=== PATIENT | female | born 1995 | race Caucasian/White ===

== ENCOUNTER → 2017-04-27 12:42 | Outpatient (CLI) | payer MEDICAID, SELFPAY ==
[2017-04-27 14:18] LABS: Valproic Acid (Depakene) Level 104 ug/mL (50-100)
== END ==
PROVIDERS: Visit Provider Nurse Practitioner Acute Care
DX: R56.9 Unspecified convulsions (principal)
CPT/HCPCS: 36415; 80164

== ENCOUNTER 2017-05-09 23:41 | Emergency (ER) | payer MEDICAID, SELFPAY ==
[2017-05-09 23:42] VITALS: BP 159/83; PULSE 108; RESP 18; TEMP 36.8; O2SAT 97; BMI 42.0
--- NOTE | 2017-05-09 23:55 | RAD_ITS ---
STUDY: X-RAY - RIGHT FOOT CLINICAL: Female, 21 years old. Patient stepped on a toothpick, which the doctor pulled out. Puncture wound in the medial tarsal/first metatarsal region. TECHNIQUE: view(s) of the foot. COMPARISON: None. FINDINGS: There is minimal posterior calcaneal enthesophyte formation at the insertion site of the Achilles' tendon. Otherwise normal talus, calcaneus, and tarsal bones. Normal visualized subtalar, talonavicular, calcaneocuboid, tarsal and tarsometatarsal articulations. Normal metatarsi. Normal metatarsophalangeal joint of the great toe. Normal tibial and fibular sesamoid bones. Normal interphalangeal joint of the great toe. Normal phalanges of the great toe. Normal second through fifth metatarsophalangeal joints. Normal interphalangeal joints and phalanges of the lesser toes. The soft tissue structures are unremarkable. RAD/Foot min 3 Views IMPRESSION: No demonstrated fracture, dislocation, or destructive osseous lesion. No demonstrated radiodense foreign body. Electronically Signed: Chema Clark MD at 1:07 EDT , Service support ,
[2017-05-10] MEDS: Diphth,Pertuss(Acell),Tet Vac 0.5 ML Vial IM (00:11)
[2017-05-10] MEDS: Acetaminophen 500 MG Tablet 1000 MG PO (00:34)
--- NOTE | 2017-05-10 00:50 | ED.DCSUM_ITS ---
- ER Visit Summary Date of Service: 05/10/17 Chief Complaint: Foreign body right foot History of Present Illness: The patient is a 21 F presents by EMS toothpick the right foot at friend's house. Wearing socks. Tetanus unknown. No anticoagulation medicines. No paresthesias. Physical Examination: General: Alert and oriented ?3, no acute distress HEENT: Normocephalic, atraumatic. Moist mucosa membranes Neck: supple, nontender. Cardiovascular: Regular rate and rhythm, no murmurs Respiratory: Normal breath sounds, symmetric, no distress Abdomen: Soft, nontender, nondistended Extremities: Right lower extremity: Foot, wooden toothpick sticking out the mid plantar aspect of her foot. No active bleeding. Neuro: no focal neurological deficits. Test Results: Right foot x-ray: No radiopaque foreign body Emergency Department Course and Treatment: Wooden toothpick removed, there was no phrase. X-ray with no radiopaque foreign bodies. Tylenol for pain control. Infection wound care discussed. Discuss signs and symptoms for infection. Tetanus updated. Treatment Plan: [] Disposition: Discharge Impression: 1. Foreign body right foot - removed This note was generated with [employer] dictation software. It may contain incorrect words, spelling, and punctuation that were not noted in review of the chart prior to signing ED Disposition - Plan for ED Patient: Disposition: Home or Assisted Living Chief Complaint: Foreign Body Diagnosis: Puncture wound of right foot with foreign body Instructions: ED Foreign Body Soft Tissue Referrals: Care Physician,No Primary [Primary Care Provider] - 5-7 Days
[2017-05-10 00:59] VITALS: BP 142/68; PULSE 80; RESP 16; O2SAT 98
== END 2017-05-10 01:00 | disposition home or self-care (01) ==
PROVIDERS: Emergency Provider Emergency Medicine
DX: S91.341A Puncture wound with foreign body, right foot, initial encounter (principal); R56.9 Unspecified convulsions; Z23 Encounter for immunization; Z79.899 Other long term (current) drug therapy; X58.XXXA Exposure to other specified factors, initial encounter; Y93.01 Activity, walking, marching and hiking; Y92.009 Unspecified place in unspecified non-institutional (private) residence as the place of occurrence of the external cause; Y99.8 Other external cause status
CPT/HCPCS: 73630; 90471; 90715; 99283

== ENCOUNTER 2017-07-08 23:03 | Emergency (ER) | payer MEDICAID, SELFPAY ==
[2017-07-08 23:03] VITALS: BP 116/69; PULSE 71; RESP 16; TEMP 36.3; O2SAT 100; BMI 43.7
--- NOTE | 2017-07-08 23:30 | ED.VISSUMM ---
- ER Visit Summary Date of Service: 07/08/17 Chief Complaint: [] Rash. History of Present Illness: The patient is a 21 F [] complaining of rash to the bilateral upper extremities lower extremities, abdomen, back. She reports she rubbed oil on her skin and she is allergic to coconut. Denies shortness of breath or chest pain. No other complaints at this time. Physical Examination: [] Afebrile, vital signs stable. Skin examination consistent with dermatitis. Test Results: [] None. Emergency Department Course and Treatment: [] Patient instructed to discontinue the coconut oil/lotion. She was given prednisone orally in the emergency department and a prescription for prednisone for the next 5 days. Treatment Plan: [] Take prednisone daily as an outpatient. Follow-up with PCP. Disposition: [] Discharge, stable. Impression: [] Allergic reaction This note was generated with [employer] dictation software. It may contain incorrect words, spelling, and punctuation that were not noted in review of the chart prior to signing ED Disposition - Plan for ED Patient: Chief Complaint: Sore Throat Referrals: Care Physician,No Primary [Primary Care Provider] -
--- NOTE | 2017-07-08 23:32 | ED.DEP ---
ED Disposition - Plan for ED Patient: Disposition: Home or Assisted Living Chief Complaint: Sore Throat Instructions: Taking an Oral Corticosteroid, ED Dermatitis Contact Ch Prescriptions: Prednisone [Deltasone] 40 mg PO DAILY #5 tab Referrals: Care Physician,No Primary [Primary Care Provider] -
[2017-07-08] MEDS: predniSONE 20 MG Tablet 60 MG PO (23:38)
== END 2017-07-08 23:43 | disposition home or self-care (01) ==
PROVIDERS: Emergency Provider Emergency Medicine
DX: L23.6 Allergic contact dermatitis due to food in contact with the skin (principal); G40.909 Epilepsy, unspecified, not intractable, without status epilepticus; Z79.899 Other long term (current) drug therapy
CPT/HCPCS: 99283

== ENCOUNTER → 2017-09-18 10:25 | Outpatient (CLI) | payer MEDICAID, SELFPAY ==
[2017-09-22 13:17] LABS: KEPPRA (LEVETIRACETAM) 19.6 ug/mL (10.0-40.0)
== END ==
PROVIDERS: Visit Provider Nurse Practitioner Acute Care
DX: R56.9 Unspecified convulsions (principal)
CPT/HCPCS: 36415; 80177

== ENCOUNTER 2017-10-26 18:28 | Emergency (ER) | payer MEDICAID, SELFPAY ==
[2017-10-26 18:29] VITALS: BP 144/63; PULSE 120; RESP 18; TEMP 37.1; O2SAT 98; BMI 45.1
--- NOTE | 2017-10-26 19:49 | ED.DCSUM_ITS ---
- ER Visit Summary Date of Service: 10/26/17 Chief Complaint: Seizure History of Present Illness: The patient is a [address] of epilepsy. On both Keppra and Lamictal. States she has been taken her meds. Today had a seizure lasted several minutes and [employer]. Denies other injuries. Followed up and saw her neurologist 2 weeks ago. Otherwise she denies complaints. Denies any significant injury. Physical Examination: Well-appearing young female. Vital signs are stable and afebrile. H EENT exam pupils round reactive light. No facial trauma. No significant hematomas or lacerations to her scalp or tenderness. Neck nontender. Full range of motion. Lungs good auscultation bilaterally. Heart regular rhythm no murmur. Abdomen soft nontender. Moving all 4 extremities. Neurovascular intact. Neurologically she is awake and alert with no focal motor or sensory deficits. NIH score is 0. GCS of 15. Test Results: None Emergency Department Course and Treatment: A Lamictal level will be sent but that will be followed up as an outpatient. Treatment Plan: Discharge to home. Follow-up with her neurologist. Return if worse. She is already not allowed to drive. Disposition: Discharge Impression: Acute seizure with a history of seizure disorder. This note was generated with [employer] dictation software. It may contain incorrect words, spelling, and punctuation that were not noted in review of the chart prior to signing ED Disposition - Plan for ED Patient: Chief Complaint: Seizure Referrals: Care Physician,No Primary [Primary Care Provider] -
--- NOTE | 2017-10-26 19:49 | ED.DEP ---
ED Disposition - Plan for ED Patient: Disposition: Home or Assisted Living Chief Complaint: Seizure Instructions: ED Seizure Recurrent Additional Instructions: Continue your current medications as prescribed. Follow-up with your neurologist for further evaluation and she can check your level of your seizure medication.
[2017-10-26 20:14] VITALS: BP 145/97; PULSE 100; RESP 14
[2017-10-31 11:37] LABS: Lamotrigine (Lamictal) Level 1.3 ug/mL (2.0-20.0)
== END 2017-10-26 20:14 | disposition home or self-care (01) ==
PROVIDERS: Emergency Provider Emergency Medicine
DX: G40.909 Epilepsy, unspecified, not intractable, without status epilepticus (principal); Z79.899 Other long term (current) drug therapy
CPT/HCPCS: 82542; 99282; J7030

== ENCOUNTER 2017-10-28 09:39 | Emergency (ER) | payer MEDICAID, SELFPAY ==
[2017-10-28 09:40] VITALS: BP 137/83; PULSE 106; RESP 18; TEMP 37.1; O2SAT 100; BMI 43.6
--- NOTE | 2017-10-28 10:55 | ED.VISSUMM ---
- ER Visit Summary Date of Service: 10/28/17 Chief Complaint: [] Left sternocleidomastoid type neck pain History of Present Illness: The patient is a 22 F [] does complain of left-sided neck pain that began last night or this morning. She indicates that she has history of seizure disorder and Fridays had a seizure and she fell and per those with her may have injured her head she was seen in the emergency department her workup was entirely unremarkable she is on a number of seizure medications including Keppra and she is managed by a seizure specialist no adjustments were made to her seizure meds that I am Sunday she thinks she had another seizure, she came in because of the persistent pain to the left SCM region. She has no headache she has been no change in vision no numbness no weakness no paresthesias no loss of functional abilities when I asked her where she hurts she takes her hand and she draws it across the distribution of the left SCM muscle she denies any midline neck pain denies a headache no numbness weakness or paresthesias Physical Examination: [] In no distress her vital signs are within normal range her head exam shows no obvious abnormality in the midline neck is nontender she has some discomfort directly over the left SCM but full range of motion of the neck flexion extension rotation her carotids have good upstroke with no bruits her anterior neck larynx are all unremarkable and again the neck is very supple her speech is normal her cranial nerves are grossly intact as are her vision her lungs are clear heart tones are normal abdomen soft nontender she is able to stand and walk without difficulty there is no motor cerebellar sensory or cranial nerve abnormality Test Results: [] Emergency Department Course and Treatment: [] I had a long conversation with the patient and her mother I explained we could obtain head CT neck CTs and other workup to the emergency department but declined those studies stating that they does not know what she can take for her pain given her seizure disorder, they also report that she has had a menstrual cycle for many months she 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 she is not in the [employer] workup was unremarkable she has no renal or ulcer disease and no allergies to nonsteroidals At this time they are comfortable with discharge for use of nonsteroidals ice to the area she has an appointment to see her neurologist and other providers next week and she is comfortable to see them for the seizures and any other conditions that are troubling her, with regards to the amenorrhea I have asked her to follow-up forgotten, there does not appear to be any indication to adjust her seizure medications today as her physicians are aware of all the above and want to see her and make those adjustments when they have seen her in the office Treatment Plan: [] Disposition: [] Home stable Impression: [] Left sided neck pain history of seizure disorder This note was generated with [employer] dictation software. It may contain incorrect words, spelling, and punctuation that were not noted in review of the chart prior to signing ED Disposition - Plan for ED Patient: Chief Complaint: Vision Prob Referrals: Care Physician,No Primary [Primary Care Provider] -
--- NOTE | 2017-10-28 11:00 | ED.DCSUM_ITS ---
- ER Visit Summary Date of Service: 10/28/17 Chief Complaint: [] Left sternocleidomastoid type neck pain History of Present Illness: The patient is a 22 F [] does complain of left- sided neck pain that began last night or this morning. She indicates that she has history of seizure disorder and Fridays had a seizure and she fell and per those with her may have injured her head she was seen in the emergency department her workup was entirely unremarkable she is on a number of seizure medications including Keppra and she is managed by a seizure specialist no adjustments were made to her seizure meds that I am Sunday she thinks she had another seizure, she came in because of the persistent pain to the left SCM region. She has no headache she has been no change in vision no numbness no weakness no paresthesias no loss of functional abilities when I asked her where she hurts she takes her hand and she draws it across the distribution of the left SCM muscle she denies any midline neck pain denies a headache no numbness weakness or paresthesias Physical Examination: [] In no distress her vital signs are within normal range her head exam shows no obvious abnormality in the midline neck is nontender she has some discomfort directly over the left SCM but full range of motion of the neck flexion extension rotation her carotids have good upstroke with no bruits her anterior neck larynx are all unremarkable and again the neck is very supple her speech is normal her cranial nerves are grossly intact as are her vision her lungs are clear heart tones are normal abdomen soft nontender she is able to stand and walk without difficulty there is no motor cerebellar sensory or cranial nerve abnormality Test Results: [] Emergency Department Course and Treatment: [] I had a long conversation with the patient and her mother I explained we could obtain head CT neck CTs and other workup to the emergency department but declined those studies stating that they does not know what she can take for her pain given her seizure disorder, they also report that she has had a menstrual cycle for many months she 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 been 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 she has no renal or ulcer disease and no allergies to nonsteroidals At this time they are comfortable with discharge for use of nonsteroidals ice to the area she has an appointment to see her neurologist and other providers next week and she is comfortable to see them for the seizures and any other conditions that are troubling her, with regards to the amenorrhea I have asked her to follow-up forgotten, there does not appear to be any indication to adjust her seizure medications today as her physicians are aware of all the above and want to see her and make those adjustments when they have seen her in the office Treatment Plan: [] Disposition: [] Home stable Impression: [] Left sided neck pain history of seizure disorder This note was generated with [employer] dictation software. It may contain incorrect words, spelling, and punctuation that were not noted in review of the chart prior to signing ED Disposition - Plan for ED Patient: Chief Complaint: Vision Prob Referrals: Care Physician,No Primary [Primary Care Provider] -
--- NOTE | 2017-10-28 11:00 | ED.DEP ---
ED Disposition - Plan for ED Patient: Chief Complaint: Vision Prob Instructions: ED Sprain Strain Neck Prescriptions: Naproxen [Naprosyn] 500 mg PO BID PRN #20 tab Referrals: Care Physician,No Primary [Primary Care Provider] - Additional Instructions: Keep all of your appointments with all of your your providers including those that manage her seizures return for change in symptoms
[2017-10-28 11:27] VITALS: BP 122/74; PULSE 68; RESP 177; O2SAT 98
== END 2017-10-28 11:30 | disposition home or self-care (01) ==
PROVIDERS: Emergency Provider Emergency Medicine
DX: M54.2 Cervicalgia (principal); G40.909 Epilepsy, unspecified, not intractable, without status epilepticus; Z79.899 Other long term (current) drug therapy
CPT/HCPCS: 99282

== ENCOUNTER 2017-12-23 12:23 | Emergency (ER) | payer MEDICAID, SELFPAY ==
[2017-12-23 12:24] VITALS: BP 159/69; PULSE 73; RESP 16; TEMP 37; O2SAT 95; BMI 42.5
[2017-12-23] MEDS: LORazepam 2 MG/ML Syringe 1 MG IV (13:23)
[2017-12-23 13:31] LABS: Absolute Lymphocyte Count 4.57 X10^3/ul (0.83-4.51); Absolute Neutrophil Count 9.3 X10^3/uL (2.0-7.7); Basophil# 0.02 X10^3/uL; Basophil% 0.1 % (0-1); Eosinophil# 0.06 X10^3/uL; Eosinophils% 0.4 % (0-5); Hematocrit 40.6 % (37-47); Hemoglobin 13.3 g/dl (12.0-15.0); Lymphocyte # 4.57 X10^3/ul (4.0); Lymphocyte % 30.4 % (19-41); Mean Corp Hgb Conc 32.8 g/gl (32-36); Mean Corpuscular Volume 88.5 fL (81-99); Mean Platelet Vol. 10.7 fl (6.2-12.0); Monocyte# 1.08 X10^3/uL; Monocyte% 7.2 % (0-10); Neutrophil # 9.27 X10^3/uL (2.7-7.7); Neutrophil % 61.7 % (47-70); Platelet Count 311 K/mm3 (150-450); RBC Distribution Width CV 12.5 % (11.6-14.6); RBC Distribution Width SD 39.9 fl (35.1-43.9); Red Blood Count 4.59 M/mm3 (4.2-5.4)
[2017-12-23 13:33] LABS: POSITIVE COUNT NO; POSITIVE DIFFERENTIAL NO; POSITIVE MORPHOLOGY NO
[2017-12-23 13:42] LABS: ALB/GLOB Ratio 0.9 RATIO (0.9-2.4); AST(SGOT) 13 U/L (15-37); Alanine Aminotransfer ALT/SGPT 26 U/L (13-56); Albumin, Serum 3.6 g/dL (3.2-5.0); Alkaline Phosphatase 110 U/L (45-117); Anion Gap 8 (5-15); BUN 13 mg/dL (7-18); BUN/Creat Ratio 16.5 RATIO (10-20); Calcium,Total 8.8 mg/dL (8.5-10.1); Chloride 107 mmol/L (98-107); Creatinine, Serum 0.79 mg/dL (0.55-1.02); EST Glomerular Filtration Rate 99 mL/min (>60); Est Glom Filt Rate - Afr Amer 119 mL/min (>60); Estimated Creatinine Clearance 98.09 ml/min; Glucose 82 mg/dL (74-106); Potassium 3.7 mmol/L (3.5-5.1); Protein, Total 7.6 g/dL (6.4-8.2); Sodium Level 142 mmol/L (136-145)
[2017-12-23 13:48] LABS: Pregnancy, Serum, hCG Quali. NEGATIVE Negative (0-9 Nonpreg)
[2017-12-23 15:19] LABS: Mucous, Urine 0 SEEN /hpf (<or=2+); Red Blood Cells-Urine 0 SEEN /hpf (0-5)
--- NOTE | 2017-12-23 15:23 | ED.DCSUM_ITS ---
- ER Visit Summary Date of Service: 12/23/17 Chief Complaint: [Seizure] History of Present Illness: The patient is a 22 F [presents the emergency department with complaint of seizures that started yesterday. Patient had a witnessed grand mal like seizure yesterday it lasted about a minute and a half per patient's mother. Patient then had a second seizure where she would just stare that lasted several seconds. Today patient had several more shaking spells that lasted about a minute however patient was awake through these and mom described just intermittent jerking. Patient denies any falls or head injuries. Patient has had a little bit of a viral pharyngitis that was diagnosed recently in 2 days ago patient was started on prednisone. Patient's not had any fevers. She denies any headache or neck pain. Patient has not had any falls or head injuries. Patient has been compliant with her medications.] Patient states that she has been under increased stress of late as her boyfriend recently quit his job. Physical Examination: [HEENT-PERRLA, EOMI. Cranial nerves II through XII grossly intact. TMs clear. Mucous membranes moist. No adenopathy. No bite wounds noted to the tongue or buccal mucosa. Cardiovascular-regular rate and rhythm without murmur or ectopy Lungs-clear to auscultation, chest wall stable without crepitus or subcu emphysema Abdomen-normoactive bowel sounds, soft, nontender, no rebound or rigidity, no peritoneal signs. Neuro [id number] and heel garcia testing within normal limits, negative Romberg, negative pronator drift, fundi benign. Extremities-intact ?4, normal range of motion, normal pulses, atraumatic] Test Results: [CBC with differential showed a slightly elevated white blood cell count of 15,000. Chemistries unremarkable. HCG was negative.] Urinalysis was normal and urine tox screen was negative. Emergency Department Course and Treatment: [Patient was given a milligram of Ativan on arrival to the emergency department.] Patient had no further seizure activity in the department. I reviewed her last admission one year ago at which time she had a MRI of her brain that was normal and also a EEG that did not show any seizure activity. Patient case was discussed with neurologist on-call asked that patient follow-up with their office. Initially it was noted that patient was on 1000 mg twice daily of Keppra and I was asked to inc rease her to 1250 twice daily however after discussing this with the patient she tells me she is currently on 1500 mg twice daily. At this point we will not make any further adjustments in her medications. Patient and her mother believe that maybe the prednisone triggered these seizures and I do not see a good reason for her to maintain and continue on the prednisone as patient no longer has throat discomfort and she has had no fevers therefore she was asked to discontinue these. Treatment Plan: [Follow-up with neurology] Disposition: [Discharged home in stable condition] Impression: [Recurrent seizures] This note was generated with [employer] dictation software. It may contain incorrect words, spelling, and punctuation that were not noted in review of the chart prior to signing ED Disposition - Plan for ED Patient: Chief Complaint: Seizure Referrals: Care Physician,No Primary [Primary Care Provider] -
[2017-12-23 15:24] LABS: Color, Urine Yellow (Yellow); Glucose, Dipstick Normal (Normal); Ketone-Dipstick 5 mg/dl (Negative); Leukocyte Esterase-Dipstick 25 /ul (Negative); Nitrite-Dipstick Negative (Negative); Occult Blood-Urine Negative /ul (Negative); Protein-Dipstick 30 mg/dl (Negative); Specific Gravity, Urine 1.025 (1.002-1.030); Urine Bilirubin Dipstick Negative (Negative); Urine Clarity Sl. Cloudy (Clear); Urine Urobilinogen Normal (Normal)
[2017-12-23 15:52] LABS: Squamous Epithelial Cells - UA 10-25 SEEN /hpf (5-10); White Blood Cells 0-5 SEEN /hpf (0-5)
[2017-12-23 15:53] LABS: Bacteria 2+ /hpf (None Seen)
[2017-12-23 16:02] LABS: Amphetamine Urine VISTA NEGATIVE (<1000 ng/mL); Barbiturate Urine VISTA NEGATIVE (< 200 ng/mL); Benzodiazepine Urine VISTA NEGATIVE (< 200 ng/mL); Cocaine Urine VISTA NEGATIVE (< 300 ng/mL); Ecstacy Urine VISTA NEGATIVE (< 500 ng/mL); Methadone Urine VISTA NEGATIVE (< 300 ng/mL); PCP Urine VISTA NEGATIVE (< 25 ng/mL); THC Urine VISTA NEGATIVE (< 50 ng/mL); Vista UDS pH Range 5
--- NOTE | 2017-12-23 16:09 | ED.DEP ---
ED Disposition - Plan for ED Patient: Chief Complaint: Seizure Instructions: ED Seizure Recurrent Referrals: Care Physician,No Primary [Primary Care Provider] - Jatin Rodrigez MD [STAFF PHYSICIAN] - 5-7 Days
[2017-12-23 16:22] VITALS: BP 148/63; PULSE 63; RESP 18; O2SAT 95
== END 2017-12-23 16:23 | disposition home or self-care (01) ==
LOC: ED 12:54
PROVIDERS: Emergency Provider Emergency Medicine
DX: G40.909 Epilepsy, unspecified, not intractable, without status epilepticus (principal)
CPT/HCPCS: 80053; 80307; 81001; 84703; 85025; 96374; 99284; J7040; A4216

== ENCOUNTER 2018-10-12 21:49 | Emergency (ER) | payer MEDICAID, SELFPAY ==
[2018-10-12 21:50] VITALS: BP 140/72; PULSE 88; RESP 16; TEMP 36.6; O2SAT 99; BMI 45.3
--- NOTE | 2018-10-12 22:33 | ED.DCSUM_ITS ---
- ER Visit Summary Date of Service: 10/12/18 Chief Complaint: Back pain History of Present Illness: The patient is a 23 F who presents with back pain that began 2 days ago. Patient describes the pain is stabbing. Patient denies any trauma or injury. She states her pain is worse with movement. Patient st ates her pain is also worse with bending. Patient states she has been taking ibuprofen with no relief. She denies any radiation of the pain. Patient denies any bowel or bladder changes. Patient denies any saddle anesthesia. Physical Examination: Vital signs are stable. Patient is afebrile. Patient is in no acute distress. There is tenderness over the upper lumbar spine and paraspinal muscles. There is no bony crepitance or step-off. There is good range of motion. Strength is 5/5 bilaterally upper and lower extremities. There are no sensory deficits noted. Deep tendon reflexes are 2+/4. Emergency Department Course and Treatment: Patient was given an injection of Toradol here. Patient was given a prescription for Lodine because her mother states that naproxen does not work for her. Patient was instructed to use ice to the area. Patient was instructed to follow-up with her primary care physician in 5 to 7 days. Patient and her mother understood and were agreeable with the plan. All questions were answered. Disposition: Discharge home Impression: Lumbar strain This note was generated with [employer] dictation software. It may contain incorrect words, spelling, and punctuation that were not noted in review of the chart prior to signing ED Disposition - Plan for ED Patient: Disposition: Home or Assisted Living Diagnosis: Lumbosacral strain Instructions: Back Sprain/Strain Prescriptions: Etodolac [Lodine] 400 mg PO BID PRN PRN #20 tab PRN Reason: Pain Prescription Printed Referrals: Arley Dominguez MD [Primary Care Provider] - 3-5 Days Additional Instructions: Use ice packs to your low back.
[2018-10-12] MEDS: Ketorolac 60 MG/2 ML Vial IM (23:13)
[2018-10-12 23:20] VITALS: RESP 16
== END 2018-10-12 23:34 | disposition home or self-care (01) ==
PROVIDERS: Emergency Provider Emergency Medicine; Family Provider Family Medicine; PCP Family Medicine
DX: S39.012A Strain of muscle, fascia and tendon of lower back, initial encounter (principal); E66.9 Obesity, unspecified; X58.XXXA Exposure to other specified factors, initial encounter; Y93.89 Activity, other specified; Y92.89 Other specified places as the place of occurrence of the external cause; Y99.8 Other external cause status
CPT/HCPCS: 96372; 99282

== ENCOUNTER 2018-11-10 21:59 | Emergency (ER) | payer MEDICAID, SELFPAY ==
[2018-11-10 21:59] VITALS: BP 152/82; PULSE 107; RESP 16; TEMP 36.6; O2SAT 97; BMI 44.8
[2018-11-10] MEDS: 0.9% Normal Saline 1,000 ML 1000 ML IV (22:47)
[2018-11-10] MEDS: Ondansetron 4 MG/2 ML Vial IV (22:49)
[2018-11-10] MEDS: Ketorolac 30 MG/ML Syringe IV (22:49)
[2018-11-10 22:51] LABS: Absolute Neutrophil Count 6.2 X10^3/uL (2.0-7.7); Basophil# 0.07 X10^3/uL; Basophil% 0.6 % (0-1); Eosinophil# 0.84 X10^3/uL; Eosinophils% 7.2 % (0-5); Hematocrit 40.2 % (37-47); Hemoglobin 13.1 g/dL (12.0-15.0); Lymphocyte % 31.8 % (19-41); Mean Corp Hgb Conc 32.6 g/dL (32-36); Mean Corpuscular Hgb 28.7 pg (27.0-32.0); Mean Corpuscular Volume 88.2 fL (81-99); Mean Platelet Vol. 11.1 fl (6.2-12.0); Monocyte# 0.86 X10^3/uL; Monocyte% 7.4 % (0-10); NRBC Flagged by Analyzer 0 % (0-5); Neutrophil # 6.15 X10^3/uL (2.7-7.7); Neutrophil % 52.7 % (47-70); Platelet Count 288 K/mm3 (150-450); RBC Distribution Width CV 11.9 % (11.6-14.6); RBC Distribution Width SD 38.4 fl (35.1-43.9); Red Blood Count 4.56 M/mm3 (4.2-5.4); White Blood Count 11.7 K/mm3 (4.4-11.0)
[2018-11-10 23:07] LABS: Internal QC Validated? YES +Cl - CLEAR BKGD; Pregnancy, Serum, hCG Quali. NEGATIVE Negative
[2018-11-10 23:11] LABS: AST(SGOT) 17 U/L (15-37); Alanine Aminotransfer ALT/SGPT 24 U/L (13-56); Albumin, Serum 3.4 g/dL (3.2-5.0); Alkaline Phosphatase 98 U/L (45-117); Anion Gap 5 (5-15); BUN 16 mg/dL (7-18); BUN/Creat Ratio 20.5 RATIO (10-20); Bilirubin, Direct 0.15 mg/dL (0.00-0.30); Calcium,Total 8.6 mg/dL (8.5-10.1); Chloride 111 mmol/L (98-107); Creatinine, Serum 0.78 mg/dL (0.55-1.02); EST Glomerular Filtration Rate 99 mL/min (>60); Est Glom Filt Rate - Afr Amer 120 mL/min (>60); Estimated Creatinine Clearance 98.52 ml/min; Glucose 124 mg/dL (74-106); Lipase 166 U/L (73-393); Potassium 3.9 mmol/L (3.5-5.1); Protein, Total 7.4 g/dL (6.4-8.2); Sodium Level 141 mmol/L (136-145)
--- NOTE | 2018-11-10 23:26 | ED.DCSUM_ITS ---
History of Present Illness Chief Complaint: Nausea/Vomiting Detail of Chief Complaint: Nausea, vomiting, diarrhea, epigastric pain Informant: Patient Onset: Days Context: Gradual Onset Timing: Waxes and wanes Current Severity: Mild Maximum Severity: Moderate Narrative: Patient presents with a several day history of nausea, vomiting, and diarrhea. She has epigastric pain. This started after eating chicken Ahmet that her friend made. She reports having a low-grade fever couple days ago. She developed a migraine which improved after taking Excedrin Migraine yesterday. She reports a mild headache currently. - Past Medical History (1) Seizure disorder Status: Acute Past Medical History - Allergies and Home Meds Allergies/Adverse Reactions: Allergies dog dander Allergy (Verified 11/10/18 22:01) Other coconut Adverse Reaction (Verified 11/10/18 22:01) Hives grapefruit Adverse Reaction (Verified 11/10/18 22:01) Hives Primary Care Physician: Arley Dominguez MD [Primary Care Provider] - 3-5 Days if not improving Prior records reviewed: Yes Past Medical History: - - Reviewed Lives: With Family Smoking Status: Never smoker - Family History Sibling Family History: Reports: Seizures Review of Systems General: Reports: Fever - Low-grade fever a few days ago. Denies: Chills Eyes: Denies: Visual changes - bilaterally ENT: Denies: Bilateral ear pain Cardiovascular: Denies: Chest pain, Palpitations Respiratory: Denies: Dyspnea, Cough Gastrointestinal: Reports: Abdominal pain, Nausea, Vomiting, Diarrhea Genitourinary: Denies: Dysuria Musculoskeletal: Denies: Back pain, Extremity Pain Skin: Denies: Rash Neurological: Reports: Headache. Denies: Weakness, Parasthesia, Numbness Endocrine: Denies: Polyuria, Polydipsia Hematologic: Denies: Easy bruising Allergy: Denies: Uticaria Physical Exam Vital Signs/Narrative: Vital Signs Temp Pulse Resp BP Pulse Ox 11/10/18 21:59 98 F 107 H 16 152/82 H 97 Inital Vital Signs reviewed: Yes General: Well nourished, Well developed Head: Normocephalic Eyes: EOMI ENT: Moist mucous membranes Neck: Supple Cardiovascular: Regular rate, Regular rhythm Respiratory: No distress, CTA bilaterally Abdomen: Soft, Tender - Mild epigastric tenderness palpation., Hypoactive bowel sounds. Negative for: Guarding, Rebound tenderness Back: Nontender Extremities: Nontender Skin: Normal color, No rash Neurological: Alert, Oriented x3 Psychological: Normal affect Diagnostic/Tx/Re-eval Laboratory Results 11/10/18 11/10/18 11/10/18 22:45 22:45 22:45 WBC 11.7 H RBC 4.56 Hgb 13.1 Hct 40.2 MCV 88.2 MCH 28.7 MCHC 32.6 RDW Std Deviation 38.4 RDW Coeff of Khanh 11.9 Plt Count 288 MPV 11.1 Immature Gran % (Auto) 0.300 Neut % (Auto) 52.7 Lymph % (Auto) 31.8 [place] % (Auto) 7.4 Eos % (Auto) 7.2 H Baso % (Auto) 0.6 Absolute Neuts (auto) 6.2 Absolute Lymphs (auto) 3.70 Nucleated RBC % 0 Sodium 141 Potassium 3.9 Chloride 111 H Carbon Dioxide 25.0 Anion Gap 5 BUN 16 Creatinine 0.78 Estim Creat Clear Calc 98.52 Est GFR (MDRD) Af Amer 120 Est GFR (MDRD) Non-Af 99 BUN/Creatinine Ratio 20.5 H Glucose 124 H Calcium 8.6 Total Bilirubin 0.30 Direct Bilirubin 0.15 AST 17 ALT 24 Alkaline Phosphatase 98 Total Protein 7.4 Albumin 3.4 Globulin 4.0 Lipase 166 Serum , Qual NEGATIVE - Medical Decision Making Patient was given Toradol, Zofran, and IV fluids. On repeat evaluation she does feel improved. Test results were discussed with her. I advised her that if she does have food poisoning treatment is supportive. She is given a prescription for Zofran and Bentyl at home. ED Disposition - Plan for ED Patient: Disposition: Home or Assisted Living Diagnosis: Gastroenteritis Instructions: FOOD POISONING or GASTROENTERITIS (6y-Adult) Prescriptions: Dicyclomine HCl [Bentyl] 20 mg PO TIDAC #20 cap Prescription Printed Ondansetron [Zofran Odt] 4 mg PO Q8H PRN PRN #10 tab PRN Reason: Nausea Prescription Printed Referrals: Arley Dominguez MD [Primary Care Provider] - 3-5 Days if not improving
[2018-11-10 23:47] VITALS: BP 147/85; PULSE 79; RESP 18; O2SAT 100
== END 2018-11-10 23:48 | disposition home or self-care (01) ==
PROVIDERS: Emergency Provider Emergency Medicine; Family Provider Family Medicine; PCP Family Medicine
DX: K52.9 Noninfective gastroenteritis and colitis, unspecified (principal); G40.909 Epilepsy, unspecified, not intractable, without status epilepticus
CPT/HCPCS: 80048; 80076; 83690; 84703; 85025; 96361; 96374; 96375; 99284; J2405

== ENCOUNTER 2018-11-23 22:37 | Emergency (ER) | payer MEDICAID, SELFPAY ==
[2018-11-23 22:38] VITALS: BP 138/75; PULSE 79; RESP 15; TEMP 36.6; O2SAT 99; BMI 41.8
--- NOTE | 2018-11-23 22:48 | CT_ITS ---
HISTORY: SEIZURES X 3 WITH SHAKING,HIT HEAD,PT WAS SHIELDEDHX:NON EPILEPTIC SEIZURES AND TAKES NO MEDS EXAMINATION: CT Head or Brain W/O IV Contrast TECHNIQUE: Multiple axial images were obtained of the head without intravenous contrast. A radiation dose optimization technique was used for this scan. IV Contrast dosage and agent: None. COMPARISON: CT brain 01/01/2017 FINDINGS: Normal ventricles and normal cloud-white matter differentiation. No intracranial mass, hemorrhage, or acute intracranial abnormality. Posterior fossa structures are unremarkable. No suspicious extra-axial fluid collection. Pansinusitis with mucosal thickening and partial opacification of the paranasal sinuses throughout. This was also seen previously. CT/Brain/Head without Contrast IMPRESSION: 1. Normal CT brain without contrast. 2. Chronic pansinusitis. Individualized dose optimization techniques were used for this CT. at 0033 Reported and signed by: Yeyo Dewitt MD Electronically Signed: Yeyo Dewitt, at 0:32 EDT Tel , Service support ,
--- NOTE | 2018-11-23 22:49 | ED.DCSUM_ITS ---
History of Present Illness Chief Complaint: Seizure Informant: Patient Onset: Today Context: Sudden Onset Timing: Intermittent Current Severity: Mild Maximum Severity: Moderate Narrative: The patient presents to the emergency department with with seizure. The patient was diagnosed with nonepileptic psychogenic seizure disorder. She initially was diagnosed with seizures and was on Keppra. She is had negative MRIs and EEGs. They all seem to be stress-induced. Her upper was stopped. She states that she gets very anxious before she has to go to work. States today, she had 2 episodes where she just felt like she was going to have a seizure and then one where she had tonic-clonic motion. She struck her head. She did not bite her tongue. There is no urinary incontinence. There is no postictal spell. She states he is at her normal nonepileptic spells. Prior similar symptoms: No Recent Illness/Hospitalization: No Past Medical History - Allergies and Home Meds Allergies/Adverse Reactions: Allergies dog dander Allergy (Verified 11/23/18 22:41) Other coconut Adverse Reaction (Verified 11/23/18 22:41) Hives grapefruit Adverse Reaction (Verified 11/23/18 22:41) Hives Primary Care Physician: Arley Dominguez MD [Primary Care Provider] - Prior records reviewed: Yes Past Medical History: - - NEPS Surgical History: no surgical history Smoking Status: Never smoker - Family History Sibling Family History: Reports: Seizures Review of Systems General: Denies: Chills, Fever, Sweats Eyes: Denies: Visual changes - bilaterally, Diplopia ENT: Denies: Rhinorrhea, Sore throat Cardiovascular: Denies: Chest pain, Palpitations Respiratory: Denies: Dyspnea, Cough, Dyspnea on exertion Gastrointestinal: Denies: Abdominal pain, Nausea, Vomiting, Diarrhea, Melena, Hematochezia Genitourinary: Denies: Dysuria, Hematuria, Frequency Musculoskeletal: Denies: Back pain, Extremity Pain Skin: Denies: Rash, Wounds Neurological: Denies: Headache, Weakness, Numbness Physical Exam Vital Signs/Narrative: Vital Signs Temp Pulse Resp BP Pulse Ox 11/23/18 22:38 97.9 F 79 15 138/75 H 99 Inital Vital Signs reviewed: Yes General: Well nourished, Well developed, No Acute Distress Head: Normocephalic, Atraumatic Eyes: Perrl, EOMI ENT: Moist mucous membranes, No rhinorrhea Neck: Supple, Nontender Cardiovascular: Regular rate, Regular rhythm, No murmurs Respiratory: No distress, CTA bilaterally, Chest nontender Abdomen: Soft, Nontender, Nondistended, Normal bowel sounds Back: Nontender, Normal Inspection Extremities: Nontender, No edema Skin: Normal color, No rash Neurological: Alert, Oriented x3, Cranial nerves II-XII grossly intact, Normal Strength, Normal Sensation Psychological: Normal affect, Normal Mood Diagnostic/Tx/Re-eval Abnormal Lab Results 11/23/18 11/23/18 23:20 23:20 WBC 10.9 RBC 4.50 Hgb 12.7 Hct 39.5 MCV 87.8 MCH 28.2 MCHC 32.2 RDW Std Deviation 39.1 RDW Coeff of Khanh 12.2 Plt Count 316 MPV 11.7 Immature Gran % (Auto) 0.300 Neut % (Auto) 45.9 L Lymph % (Auto) 39.0 Calvert % (Auto) 7.8 Eos % (Auto) 6.4 H Baso % (Auto) 0.6 Absolute Neuts (auto) 5.0 Absolute Lymphs (auto) 4.25 Nucleated RBC % 0 Sodium 142 Potassium 3.5 Chloride 109 H Carbon Dioxide 27.0 Anion Gap 6 BUN 15 Creatinine 0.82 Estim Creat Clear Calc 93.71 Est GFR (MDRD) Af Amer 113 Est GFR (MDRD) Non-Af 94 BUN/Creatinine Ratio 18.3 Glucose 92 Calcium 9.3 Total Bilirubin 0.40 AST 22 ALT 24 Alkaline Phosphatase 99 Total Protein 7.8 Albumin 3.7 Globulin 4.1 Albumin/Globulin Ratio 0.9 Clinical Impression(s) from Imaging Studies Brain CT 11/23/18 22:48 IMPRESSION: 1. Normal CT brain without contrast. 2. Chronic pansinusitis. Individualized dose optimization techniques were used for this CT. at 0033 Reported and signed by: Yeyo Dewitt MD Electronically Signed: Yeyo Dewitt, at 0:32 EDT Tel , Service support , - Medical Decision Making The patient presents after nonepileptic psychogenic seizure. She did strike her head. IV was established. The patient was given fluids and Ativan. On reevaluation, she is feeling markedly improved. With her head injury, I did obtain a CT of her head. This was unremarkable. The patient does have a significant amount of stressors at home, but she is not suicidal or homicidal. These are all stress related spells. I did deputy general counsel her on the importance of following up with her primary care as there may be medication that she would benefit from. I think the patient is safe for outpatient therapy. She is comfortable with this plan of care. She will be discharged home. Impression 1. Head injury without loss of consciousness 2. Nonepileptic psychogenic seizure ED Disposition - Plan for ED Patient: Instructions: SEIZURE, Recurrent [Adult] Referrals: Arley Dominguez MD [Primary Care Provider] -
[2018-11-23] MEDS: 0.9% Normal Saline 1,000 ML 1000 ML IV (23:16)
[2018-11-23] MEDS: LORazepam 2 MG/ML Syringe 1 MG IV (23:16)
[2018-11-23] MEDS: Ondansetron 4 MG/2 ML Vial IV (23:16)
[2018-11-23 23:38] LABS: Absolute Lymphocyte Count 4.25 X10^3/uL (0.83-4.51); Basophil# 0.07 X10^3/uL; Basophil% 0.6 % (0-1); Eosinophils% 6.4 % (0-5); Hematocrit 39.5 % (37-47); Hemoglobin 12.7 g/dL (12.0-15.0); Lymphocyte # 4.25 X10^3/ul (4.0); Mean Corp Hgb Conc 32.2 g/dL (32-36); Mean Corpuscular Hgb 28.2 pg (27.0-32.0); Mean Corpuscular Volume 87.8 fL (81-99); Mean Platelet Vol. 11.7 fl (6.2-12.0); Monocyte# 0.85 X10^3/uL; Monocyte% 7.8 % (0-10); NRBC Flagged by Analyzer 0 % (0-5); Neutrophil # 5.01 X10^3/uL (2.7-7.7); Neutrophil % 45.9 % (47-70); Platelet Count 316 K/mm3 (150-450); RBC Distribution Width CV 12.2 % (11.6-14.6); RBC Distribution Width SD 39.1 fl (35.1-43.9); White Blood Count 10.9 K/mm3 (4.4-11.0)
[2018-11-23 23:51] LABS: ALB/GLOB Ratio 0.9 RATIO (0.9-2.4); AST(SGOT) 22 U/L (15-37); Alanine Aminotransfer ALT/SGPT 24 U/L (13-56); Albumin, Serum 3.7 g/dL (3.2-5.0); Alkaline Phosphatase 99 U/L (45-117); Anion Gap 6 (5-15); BUN 15 mg/dL (7-18); BUN/Creat Ratio 18.3 RATIO (10-20); Calcium,Total 9.3 mg/dL (8.5-10.1); Chloride 109 mmol/L (98-107); Creatinine, Serum 0.82 mg/dL (0.55-1.02); EST Glomerular Filtration Rate 94 mL/min (>60); Est Glom Filt Rate - Afr Amer 113 mL/min (>60); Estimated Creatinine Clearance 93.71 ml/min; Globulin 4.1 g/dL (2.2-4.2); Glucose 92 mg/dL (74-106); Potassium 3.5 mmol/L (3.5-5.1); Protein, Total 7.8 g/dL (6.4-8.2); Sodium Level 142 mmol/L (136-145)
[2018-11-24 00:27] LABS: Mucous, Urine 0 SEEN /hpf (<or=2+)
[2018-11-24 00:28] LABS: Color, Urine Yellow (Yellow); Glucose, Dipstick Normal (Normal); Ketone-Dipstick Negative (Negative); Leukocyte Esterase-Dipstick 100 /ul (Negative); Nitrite-Dipstick Negative (Negative); Occult Blood-Urine 10 /ul (Negative); Protein-Dipstick Negative (Negative); Specific Gravity, Urine 1.015 (1.002-1.030); Urine Bilirubin Dipstick Negative (Negative); Urine Clarity Clear (Clear); Urine Urobilinogen 1 mg/dl (Normal); Urine pH 6.5 (5.0 - 8.0)
[2018-11-24 00:34] LABS: Bacteria RARE /hpf (None Seen); Squamous Epithelial Cells - UA 0-5 SEEN /hpf (5-10); White Blood Cells 0-5 SEEN /hpf (0-5)
[2018-11-24 00:35] LABS: Internal QC Validated? YES +Cl - CLEAR BKGD; Pregnancy, Urine Negative Negative; Red Blood Cells-Urine 0-5 SEEN /hpf (0-5)
[2018-11-24 00:36] VITALS: BP 115/92; PULSE 71; RESP 15; O2SAT 99
== END 2018-11-24 00:45 | disposition home or self-care (01) ==
LOC: ED 22:58
PROVIDERS: Emergency Provider Emergency Medicine; Family Provider Family Medicine; PCP Family Medicine
DX: R56.9 Unspecified convulsions (principal); S09.90XA Unspecified injury of head, initial encounter; W22.8XXA Striking against or struck by other objects, initial encounter; Y93.89 Activity, other specified; Y92.009 Unspecified place in unspecified non-institutional (private) residence as the place of occurrence of the external cause; Y99.8 Other external cause status
CPT/HCPCS: 70450; 80053; 81001; 81025; 85025; 96361; 96374; 96375; 99285; J7030; A4216; J2405

== ENCOUNTER 2018-11-27 18:05 | Emergency (ER) | payer OTHER, MEDICAID, SELFPAY ==
[2018-11-27 18:06] VITALS: BP 147/77; PULSE 85; PULSE 88; RESP 17; TEMP 36.9; O2SAT 95; O2SAT 96; BMI 44.4
--- NOTE | 2018-11-27 18:38 | ED.VIS.GEN ---
History of Present Illness Chief Complaint: Seizure Detail of Chief Complaint: Left shoulder pain Informant: Patient Onset: Today Current Severity: Mild Maximum Severity: Mild Narrative: Patient has a history of nonepileptic psychogenic seizures. She was seen in the ER a few days ago after having 4 seizures. Work-up including head CT were unremarkable. Patient states she was at work again today when she felt a pain in the back of her head followed by a seizure. Stress including stress at work seems to be a trigger for her seizures. At this time her only complaint is left shoulder pain. She is right-hand dominant. Past Medical History - Allergies and Home Meds Allergies/Adverse Reactions: Allergies dog dander Allergy (Verified 11/27/18 18:05) Other coconut Adverse Reaction (Verified 11/27/18 18:05) Hives grapefruit Adverse Reaction (Verified 11/27/18 18:05) Hives Primary Care Physician: Arley Dominguez MD [Primary Care Provider] - Prior records reviewed: Yes Past Medical History: - - Reviewed Surgical History: no surgical history Smoking Status: Never smoker - Family History Sibling Family History: Reports: Seizures Review of Systems General: Denies: Chills, Fever Eyes: Denies: Visual changes - bilaterally ENT: Denies: Bilateral ear pain Cardiovascular: Denies: Chest pain Respiratory: Denies: Dyspnea, Cough Gastrointestinal: Denies: Abdominal pain, Nausea, Vomiting Genitourinary: Denies: Dysuria Musculoskeletal: Reports: Extremity Pain. Denies: Neck pain Neurological: Denies: Headache, Weakness, Parasthesia Endocrine: Denies: Polyuria, Polydipsia Hematologic: Denies: Easy bruising Allergy: Denies: Uticaria Physical Exam Vital Signs/Narrative: Vital Signs Temp Pulse Resp BP Pulse Ox 11/27/18 18:06 98.4 F 85 17 147/77 H 96 Inital Vital Signs reviewed: Yes General: Well nourished, Well developed Head: Normocephalic ENT: Moist mucous membranes Neck: Supple Cardiovascular: Regular rate, Regular rhythm Respiratory: No distress, CTA bilaterally Abdomen: Soft, Nontender Extremities: Tenderness - Left shoulder tenderness. No sign of dislocation. Strong distal pulses. Skin: Normal color Neurological: Alert, Oriented x3, Normal Sensation Psychological: Normal affect Diagnostic/Tx/Re-eval Impressions Shoulder X-Ray 11/27/18 18:55 IMPRESSION: No acute osseous abnormality. Electronically Signed: Colby Adam, at 19:13 EDT Tel , Service support , 11/27/18 18:55 Shoulder min 2 Views [RAD] Stat - Medical Decision Making Patient was given naproxen here for pain along with a dose of Vistaril to help with her anxiety. She states that Ativan and other benzos give her hallucinations. On repeat evaluation she is resting comfortably. She does feel that her anxiety is improved and she will be given a prescription for a short course of Vistaril. ED Disposition - Plan for ED Patient: Disposition: Home or Assisted Living Diagnosis: Pseudoseizure, Shoulder sprain Instructions: SEIZURE, Recurrent [Adult], Shoulder Sprain Prescriptions: Naproxen [Naprosyn] 500 mg PO BID PRN #20 tablet hydrOXYzine pamoate capsule [Vistaril] 1 - 2 cap PO TID PRN PRN #30 capsule PRN Reason: Anxiety Referrals: Arley Dominguez MD [Primary Care Provider] - 1 Week
--- NOTE | 2018-11-27 18:55 | RAD_ITS ---
STUDY: X-RAY - LEFT SHOULDER REASON FOR EXAM: Female, 23 years old. Fell after a seizure. TECHNIQUE: 3 view(s) of the shoulder. COMPARISON: None. FINDINGS: No visible fracture. No osseous destruction. Alignment anatomic. Mild degenerative changes. Soft tissues unremarkable. RAD/Shoulder min 2 Views IMPRESSION: No acute osseous abnormality. Electronically Signed: Colby Adam, at 19:13 EDT Tel , Service support ,
[2018-11-27] MEDS: hydrOXYzine PAM 25 MG Capsule PO (19:03)
[2018-11-27] MEDS: Naproxen 500 MG Tablet PO (19:03)
[2018-11-27 20:22] VITALS: BP 131/78; PULSE 78; RESP 16; O2SAT 98
--- NOTE | 2018-11-27 21:27 | ED.RN ---
mother called in requesting work note stating ok to return to work. spoke with Dr. Mcdermott patient can return to work with no restrictions
== END 2018-11-27 20:28 | disposition home or self-care (01) ==
PROVIDERS: Emergency Provider Emergency Medicine; Family Provider Family Medicine; PCP Family Medicine
DX: F44.5 Conversion disorder with seizures or convulsions (principal); S43.402A Unspecified sprain of left shoulder joint, initial encounter; W18.30XA Fall on same level, unspecified, initial encounter; Y93.89 Activity, other specified; Y92.89 Other specified places as the place of occurrence of the external cause; Y99.0 Civilian activity done for income or pay
CPT/HCPCS: 73030; 99284

== ENCOUNTER 2018-12-17 22:20 | Emergency (ER) | payer MEDICAID, SELFPAY ==
[2018-12-17 22:21] VITALS: BP 160/71; PULSE 94; RESP 18; TEMP 36.6; O2SAT 98; BMI 41.0
[2018-12-17 22:33] VITALS: O2SAT 98
--- NOTE | 2018-12-17 22:40 | ED.VIS.GEN ---
History of Present Illness Chief Complaint: Cough Informant: Patient Onset: Weeks - 1 week ago Context: Sudden Onset Timing: Continuous Quality: Cough with nasal symptoms Location: Upper respiratory Current Severity: Mild Maximum Severity: Moderate Worsened by: Viral infection Relieved by: Nothing Associated Symptoms: Nothing Narrative: Patient is a 23-year-old non-smoker who presents with rhinorrhea, congestion, postnasal drainage and cough. Cough is been productive of green-colored sputum. She is a non-smoker. She denies headache. Denies visual, auditory or ocular symptoms. She denies photophobia, neck pain or neck stiffness. She denies chest pain. She denies GI symptoms. She denies rash. She denies myalgias or arthralgias. Prior similar symptoms: No Recent Illness/Hospitalization: No - Past Medical History (1) Seizure disorder Status: Acute (2) Morbid obesity with BMI of 40.0-44.9, adult Status: Chronic Past Medical History - Allergies and Home Meds Allergies/Adverse Reactions: Allergies dog dander Allergy (Verified 12/17/18 22:25) Other coconut Adverse Reaction (Verified 12/17/18 22:25) Hives grapefruit Adverse Reaction (Verified 12/17/18 22:25) Hives Primary Care Physician: Arley Dominguez MD [Primary Care Provider] - Prior records reviewed: Yes Surgical History: no surgical history Lives: With Family Smoking Status: Never smoker Alcohol: None Drugs: None - Family History Sibling Family History: Reports: Seizures Review of Systems General: Denies: Chills, Fever, Malaise, Sweats Eyes: Denies: Visual changes - bilaterally, Blurred Vision - bilaterally, Diplopia ENT: Denies: Bilateral ear pain, Rhinorrhea, Sore throat Cardiovascular: Denies: Chest pain, Palpitations Respiratory: Reports: Cough, Sputum. Denies: Dyspnea, Dyspnea on exertion Gastrointestinal: Denies: Abdominal pain, Nausea, Vomiting, Diarrhea, Melena, Hematochezia Musculoskeletal: Denies: Myalgias, Arthralgias, Neck pain, Back pain, Swelling, Extremity Pain, -, - Skin: Denies: Rash, Wounds Physical Exam Vital Signs/Narrative: Vital Signs Temp Pulse Resp BP Pulse Ox 12/17/18 22:21 98 F 94 18 160/71 H 98 Inital Vital Signs reviewed: Yes General: Well nourished, Well developed, No Acute Distress Head: Normocephalic, Atraumatic Eyes: Perrl, EOMI. Negative for: Pale conjunctiva, Scleral icterus ENT: Moist mucous membranes, TM's clear. Negative for: No rhinorrhea Neck: Supple, Nontender, No lymphadenopathy, No JVD Cardiovascular: Regular rate, Regular rhythm, No murmurs, Normal S1, Normal S2 Respiratory: No distress, CTA bilaterally, Chest nontender Skin: Normal color, No rash Neurological: Alert, Oriented x3, Cranial nerves II-XII grossly intact, Normal Strength, Normal Sensation Psychological: Normal affect Diagnostic/Tx/Re-eval - Medical Decision Making Patient presents with upper respiratory symptoms. She was informed this is a viral illness. She was informed antibiotics are not indicated. Since vitals are normal and auscultatory findings are unremarkable x-ray was not obtained. ED Disposition - Plan for ED Patient: Disposition: Home or Assisted Living Diagnosis: Acute bronchitis Instructions: BRONCHITIS, No Antibiotic (Adult) Referrals: Arley Dominguez MD [Primary Care Provider] - 10-14 Days if not better
== END 2018-12-17 23:07 | disposition home or self-care (01) ==
LOC: ED 22:52
PROVIDERS: Emergency Provider Emergency Medicine; Family Provider Family Medicine; PCP Family Medicine
DX: J20.9 Acute bronchitis, unspecified (principal); G40.909 Epilepsy, unspecified, not intractable, without status epilepticus; E66.01 Morbid (severe) obesity due to excess calories; Z68.41 Body mass index [BMI] 40.0-44.9, adult
CPT/HCPCS: 99282

== ENCOUNTER 2018-12-24 18:11 | Emergency (ER) | payer MEDICAID, SELFPAY ==
[2018-12-24 18:13] VITALS: BP 162/113; PULSE 100; RESP 16; TEMP 36.5; O2SAT 98; BMI 47.5
--- NOTE | 2018-12-24 18:16 | ED.VIS.GEN ---
History of Present Illness Chief Complaint: Seizure Informant: Patient Onset: Today Context: Sudden Onset Current Severity: Mild Maximum Severity: Mild Narrative: The patient presents to the emergency department after a seizure-like spell. The patient has a history of nonepileptic seizures. She was at home. They were concerned for a gas leak. EMS arrived and was checking for gas. There was none that was able to be found. The patient then had a 2-second shaking spell which is normal with her nonepileptic seizures. She states that she was stressed and this does happen to her. She is not on any antiseizure medication. She is otherwise been in her normal state of health. Prior similar symptoms: Yes Recent Illness/Hospitalization: No Past Medical History - Allergies and Home Meds Allergies/Adverse Reactions: Allergies dog dander Allergy (Verified 12/24/18 18:13) Other lorazepam [From Ativan] Allergy (Verified 12/24/18 19:10) Other venlafaxine [From Effexor] Allergy (Verified 12/24/18 19:10) Other coconut Adverse Reaction (Verified 12/24/18 18:13) Hives grapefruit Adverse Reaction (Verified 12/24/18 18:13) Hives Primary Care Physician: Arley Dominguez MD [Primary Care Provider] - Prior records reviewed: Yes Surgical History: no surgical history Smoking Status: Never smoker - Family History Sibling Family History: Reports: Seizures Review of Systems General: Denies: Chills, Fever, Sweats Eyes: Denies: Visual changes - bilaterally, Diplopia ENT: Denies: Rhinorrhea, Sore throat Cardiovascular: Denies: Chest pain, Palpitations Respiratory: Denies: Dyspnea, Cough, Dyspnea on exertion Gastrointestinal: Denies: Abdominal pain, Nausea, Vomiting, Diarrhea, Melena, Hematochezia Genitourinary: Denies: Dysuria, Hematuria, Frequency Musculoskeletal: Denies: Back pain, Extremity Pain Skin: Denies: Rash, Wounds Neurological: Denies: Headache, Weakness, Numbness Physical Exam Inital Vital Signs reviewed: Yes General: Well nourished, Well developed, No Acute Distress Head: Normocephalic, Atraumatic Eyes: Perrl, EOMI ENT: Moist mucous membranes, No rhinorrhea Neck: Supple, Nontender Cardiovascular: Regular rate, Regular rhythm, No murmurs Respiratory: No distress, CTA bilaterally, Chest nontender Abdomen: Soft, Nontender, Nondistended, Normal bowel sounds Back: Nontender, Normal Inspection Extremities: Nontender, No edema Skin: Normal color, No rash Neurological: Alert, Oriented x3, Cranial nerves II-XII grossly intact, Normal Strength, Normal Sensation Psychological: Normal affect, Normal Mood Diagnostic/Tx/Re-eval Abnormal Lab Results 12/24/18 12/24/18 12/24/18 18:45 18:45 18:45 WBC 10.8 RBC 4.93 Hgb 14.2 Hct 43.6 MCV 88.4 MCH 28.8 MCHC 32.6 RDW Std Deviation 38.3 RDW Coeff of Khanh 11.9 Plt Count 332 MPV 11.3 Immature Gran % (Auto) 0.200 Neut % (Auto) 57.8 Lymph % (Auto) 27.7 Clay % (Auto) 7.0 Eos % (Auto) 6.6 H Baso % (Auto) 0.7 Absolute Neuts (auto) 6.2 Absolute Lymphs (auto) 2.98 Nucleated RBC % 0 VBG Carboxyhemoglobin 1.1 Sodium 139 Potassium 3.5 Chloride 106 Carbon Dioxide 27.0 Anion Gap 6 BUN 13 Creatinine 0.87 Estim Creat Clear Calc 80.90 Est GFR (MDRD) Af Amer 106 Est GFR (MDRD) Non-Af 87 BUN/Creatinine Ratio 15.0 Glucose 101 Calcium 9.2 - Medical Decision Making The patient presents to the emergency department after nonepileptic spell. She is awake and alert. There is no secondary generalization. The patient was observed. She had no further symptoms. Given the questionable gas leak, I did obtain a carboxyhemoglobin level which was unremarkable. At this point, I do feel the patient is safe for discharge. She is comfortable with plan of care. Impression 1. Nonepileptic spell ED Disposition - Plan for ED Patient: Instructions: SEIZURE, Recurrent [Adult] Referrals: Arley Dominguez MD [Primary Care Provider] -
[2018-12-24 18:17] VITALS: BP 189/115; PULSE 111; RESP 16; O2SAT 98
[2018-12-24 19:02] LABS: Carboxyhemoglobin Frac (CO) 1.1 % (0.0-1.5)
[2018-12-24 19:04] LABS: Absolute Lymphocyte Count 2.98 X10^3/uL (0.83-4.51); Absolute Neutrophil Count 6.2 X10^3/uL (2.0-7.7); Basophil# 0.08 X10^3/uL; Basophil% 0.7 % (0-1); Eosinophil# 0.71 X10^3/uL; Eosinophils% 6.6 % (0-5); Hematocrit 43.6 % (37-47); Hemoglobin 14.2 g/dL (12.0-15.0); Lymphocyte # 2.98 X10^3/ul (4.0); Lymphocyte % 27.7 % (19-41); Mean Corp Hgb Conc 32.6 g/dL (32-36); Mean Corpuscular Hgb 28.8 pg (27.0-32.0); Mean Corpuscular Volume 88.4 fL (81-99); Mean Platelet Vol. 11.3 fl (6.2-12.0); Monocyte# 0.75 X10^3/uL; NRBC Flagged by Analyzer 0 % (0-5); Neutrophil # 6.23 X10^3/uL (2.7-7.7); Neutrophil % 57.8 % (47-70); Platelet Count 332 K/mm3 (150-450); RBC Distribution Width CV 11.9 % (11.6-14.6); RBC Distribution Width SD 38.3 fl (35.1-43.9); Red Blood Count 4.93 M/mm3 (4.2-5.4); White Blood Count 10.8 K/mm3 (4.4-11.0)
[2018-12-24 19:10] LABS: Anion Gap 6 (5-15); BUN 13 mg/dL (7-18); Calcium,Total 9.2 mg/dL (8.5-10.1); Chloride 106 mmol/L (98-107); Creatinine, Serum 0.87 mg/dL (0.55-1.02); EST Glomerular Filtration Rate 87 mL/min (>60); Est Glom Filt Rate - Afr Amer 106 mL/min (>60); Glucose 101 mg/dL (74-106); Potassium 3.5 mmol/L (3.5-5.1); Sodium Level 139 mmol/L (136-145)
[2018-12-24 19:46] VITALS: BP 125/73; PULSE 90; RESP 22; O2SAT 99
== END 2018-12-24 19:46 | disposition home or self-care (01) ==
LOC: ED 18:35
PROVIDERS: Emergency Provider Emergency Medicine; Family Provider Family Medicine; PCP Family Medicine
DX: R56.9 Unspecified convulsions (principal)
CPT/HCPCS: 80048; 82375; 85025; 99285; A4216

== ENCOUNTER 2019-02-19 21:54 | Emergency (ER) | payer MEDICAID, SELFPAY ==
[2019-02-19 21:55] VITALS: BP 155/71; PULSE 81; RESP 16; TEMP 36.7; O2SAT 96; BMI 46.9
--- NOTE | 2019-02-19 22:54 | ED.VIS.GEN ---
History of Present Illness Chief Complaint: Seizure Informant: Patient Narrative: She has stated she has a history of nonepileptic seizures for years. She has had work-ups including EEG and MRI which have been negative. She had an episode of 40 second episode tonight where her body was shaking. She did not lose consciousness. Family saw this. She also had 3 other episodes where she shook for a second like she had chills. She stated they are anxiety related. She has been on Effexor in the past which helped but she is no longer taking this due to side effects. No home treatment. Recent negative CT head for similar episodes. She has seen a psychologist in the past but is no longer seeing that physician. Patient stated she has a mild frontal headache - Past Medical History (1) Gastroenteritis Status: Acute (2) Seizure disorder Status: Acute (3) Morbid obesity with BMI of 40.0-44.9, adult Status: Chronic Past Medical History - Allergies and Home Meds Allergies/Adverse Reactions: Allergies dog dander Allergy (Verified 02/19/19 21:55) Other lorazepam [From Ativan] Allergy (Verified 02/19/19 21:55) Other venlafaxine [From Effexor] Allergy (Verified 02/19/19 21:55) Other coconut Adverse Reaction (Verified 02/19/19 21:55) Hives grapefruit Adverse Reaction (Verified 02/19/19 21:55) Hives Primary Care Physician: Arley Dominguez MD [Primary Care Provider] - Prior records reviewed: Yes Past Medical History: - - See problem list Surgical History: no surgical history Lives: With Family Smoking Status: Never smoker Alcohol: None Drugs: None - Family History Sibling Family History: Reports: Seizures Review of Systems General: Denies: Chills, Fever, Sweats Eyes: Denies: Visual changes - bilaterally, Diplopia ENT: Denies: Rhinorrhea, Sore throat Cardiovascular: Denies: Chest pain, Palpitations Respiratory: Denies: Dyspnea, Cough, Dyspnea on exertion Gastrointestinal: Denies: Abdominal pain, Nausea, Vomiting, Diarrhea, Melena, Hematochezia Genitourinary: Denies: Dysuria, Hematuria, Frequency Musculoskeletal: Denies: Back pain, Extremity Pain Skin: Denies: Rash, Wounds Neurological: Reports: Headache. Denies: Weakness, Numbness Physical Exam Vital Signs/Narrative: Vital Signs Temp Pulse Resp BP Pulse Ox 02/19/19 21:55 98.0 F 81 16 155/71 H 96 General: Well nourished, Well developed, No Acute Distress Head: Normocephalic, Atraumatic Eyes: Perrl, EOMI ENT: Moist mucous membranes, No rhinorrhea Neck: Supple, Nontender Cardiovascular: Regular rate, Regular rhythm, No murmurs Respiratory: No distress, CTA bilaterally, Chest nontender Abdomen: Soft, Nontender, Nondistended, Normal bowel sounds Back: Nontender, Normal Inspection Extremities: Nontender, No edema Skin: Normal color, No rash Neurological: Alert, Oriented x3, Cranial nerves II-XII grossly intact, Normal Strength, Normal Sensation Psychological: Normal affect, Normal Mood Diagnostic/Tx/Re-eval - Medical Decision Making Patient had a very brief episode of potential seizure activity. She has a history of nonepileptic seizures related to stress. Given an injection of Toradol and Benadryl. At this time I do not feel she needs repeat lab work or imaging. We will follow-up as an outpatient. She does not drive. ED Disposition - Plan for ED Patient: Disposition: Home or Assisted Living Diagnosis: Psychogenic nonepileptic seizure Instructions: SEIZURE, Recurrent [Adult] Referrals: Arley Dominguez MD [Primary Care Provider] -
[2019-02-19] MEDS: DiphenhydrAMINE 50 MG/ML Syringe IM (23:27)
[2019-02-19] MEDS: Ketorolac 30 MG/ML Syringe IM (23:29)
[2019-02-19 23:44] VITALS: BP 128/54; PULSE 79; RESP 18; O2SAT 97
== END 2019-02-19 23:46 | disposition home or self-care (01) ==
PROVIDERS: Emergency Provider Emergency Medicine; Family Provider Family Medicine; PCP Family Medicine
DX: F44.5 Conversion disorder with seizures or convulsions (principal); F41.9 Anxiety disorder, unspecified; E66.01 Morbid (severe) obesity due to excess calories; Z68.41 Body mass index [BMI] 40.0-44.9, adult; Z87.19 Personal history of other diseases of the digestive system; Z79.899 Other long term (current) drug therapy
CPT/HCPCS: 96372; 99282

== ENCOUNTER 2019-04-06 12:05 | Emergency (ER) | payer MEDICAID, SELFPAY ==
[2019-04-06 12:06] VITALS: BP 142/74; PULSE 94; RESP 18; TEMP 36.8; O2SAT 97; BMI 46.0
--- NOTE | 2019-04-06 12:48 | RAD_ITS ---
STUDY: X-RAY CHEST REASON FOR EXAM: Female, 23 years old. DIZZINESS, COUGH TECHNIQUE: Single AP portable view of the chest. COMPARISON: 06/09/2011 FINDINGS: The lungs are clear and expanded. There is no demonstrated pleural abnormality. Normal size heart. Normal mediastinum and osiel. Normal visualized pulmonary arteries. Normal visualized aortic arch and descending thoracic aorta. Normal visualized thoracic spine. Normal visualized ribs, clavicles, and shoulders. There is no demonstrated abnormality of the visualized soft tissue structures of the upper abdomen. RAD/Chest 1 View (Portable) IMPRESSION: Normal x-ray examination of the chest. Electronically Signed: Hussein Rivera MD at 14:02 EST Tel , Service support ,
--- NOTE | 2019-04-06 13:03 | ED.DCSUM_ITS ---
- ER Visit Summary Date of Service: 04/06/19 Chief Complaint: Dizziness History of Present Illness: The patient is a 23 F presenting with dizziness. Patient states when she stands up she feels dizzy and room spinning. This started today. She denies syncope. She also complains of right ear pain, rhinorrhea, cough. She complains of nausea with no vomiting. She has sick contacts. She denies fever or other complaints. Physical Examination: Vitals are stable. Patient is afebrile. Alert no acute distress. HEENT exam is unremarkable. TMs unremarkable. Pharynx is normal. Neck is supple. No meningismus Lungs are clear and equal bilaterally. Heart is regular rate and rhythm. Abdomen is soft nontender nondistended. Extremities are unremarkable. Skin is warm and dry. No focal neurologic deficit. Remainder of exam is unremarkable. Emergency Department Course and Treatment: Patient was given Zofran, Antivert. Basic metabolic panel unremarkable. hCG negative. Orthostatics negative. Patient is able to tolerate p.o. in the emergency department. She is feeling improved. She is given prescription for Antivert. Advised to follow with primary care physician. Advised return to ED if worsening complaints. Disposition: Discharge home Impression: Peripheral vertigo, URI This note was generated with [employer] dictation software. It may contain incorrect words, spelling, and punctuation that were not noted in review of the chart prior to signing ED Disposition - Plan for ED Patient: Instructions: DIZZINESS, Unk Cause Prescriptions: Meclizine HCl [Antivert] 25 mg PO 4X/DAY PRN PRN #20 tab PRN Reason: Dizziness Prescription Printed Referrals: Arley Dominguez MD [Primary Care Provider] -
[2019-04-06 13:11] LABS: Internal QC Validated? YES +Cl - CLEAR BKGD; Pregnancy, Serum, hCG Quali. NEGATIVE Negative
[2019-04-06 13:13] LABS: Anion Gap 3 (5-15); BUN 14 mg/dL (7-18); BUN/Creat Ratio 14.7 RATIO (10-20); Chloride 112 mmol/L (98-107); Creatinine, Serum 0.96 mg/dL (0.55-1.02); EST Glomerular Filtration Rate 78 mL/min (>60); Est Glom Filt Rate - Afr Amer 94 mL/min (>60); Estimated Creatinine Clearance 76.68 ml/min; Glucose 84 mg/dL (74-106); Potassium 4.4 mmol/L (3.5-5.1); Sodium Level 140 mmol/L (136-145)
[2019-04-06 13:30] VITALS: BP 128/75; BP 139/78; BP 141/85; PULSE 64; PULSE 69; PULSE 71
[2019-04-06] MEDS: Meclizine HCl 25 MG Tablet PO (13:36)
--- NOTE | 2019-04-06 13:37 | ED.RN ---
PT DECLINES STEPHANIE, STATES SHE IS NOT NAUSEOUS NOW, I JUST SOMETHING TO EAT AND DRINK
--- NOTE | 2019-04-06 14:09 | ED.DEP ---
ED Disposition - Plan for ED Patient: Instructions: DIZZINESS, Unk Cause Prescriptions: Meclizine HCl [Antivert] 25 mg PO 4X/DAY PRN PRN #20 tablet PRN Reason: Dizziness Referrals: Arley Dominguez MD [Primary Care Provider] -
== END 2019-04-06 14:47 | disposition home or self-care (01) ==
LOC: ED 12:39
PROVIDERS: Emergency Provider Emergency Medicine; PCP Family Medicine
DX: J06.9 Acute upper respiratory infection, unspecified (principal); H81.399 Other peripheral vertigo, unspecified ear
CPT/HCPCS: 71045; 80048; 84703; 99284; J2405

== ENCOUNTER 2019-04-23 16:03 | Emergency (ER) | payer MEDICAID, SELFPAY ==
[2019-04-23 16:05] VITALS: BP 160/84; PULSE 89; RESP 18; TEMP 36.1; O2SAT 99; BMI 44.2
--- NOTE | 2019-04-23 16:39 | ED.DCSUM_ITS ---
- ER Visit Summary Date of Service: 04/23/19 Chief Complaint: Blood in right ear History of Present Illness: The patient is a [address] Poe. She does not have an ENT. She reports that she had multiple ear infections when she was little. She had tympanostomy tubes and did not inhale. They tried patching this with rice paper. She states that today she noticed blood in her right ear. She reports she has a dull pain is 7 out of 10 at worst and 5-10 currently. Is increased with noise. Is decreased with ibuprofen. She denies any fever or chills. She is had a nonproductive cough. She denies sore throat or shortness of breath. Physical Examination: Vitals: Stable. Afebrile. General: Well-nourished and well-developed. Head: Normocephalic atraumatic. HEENT: She does have a defect in her right TM that appears chronic. There is no erythema or dullness of her TM itself. She has normal landmarks. I suspect the source of the blood is an abrasion just inside her tragus that has dried blood present. There is no active bleeding. There is no evidence of an otitis externa. Neck: Supple, no lymphadenopathy. No JVD. Nontender. Cardiovascular: Regular rate and rhythm. No murmurs. Respiratory: No respiratory distress. Clear to auscultation bilaterally. Abdominal: Soft, nontender, nondistended, normal bowel sounds. No guarding, rebound, or peritoneal signs. Back: Nontender. Extremities: Nontender, no edema. Skin: Normal color, no rash. Neurologic: Alert and oriented ?3. Cranial nerves II through XII are intact. Normal strength and sensation. Psych: Normal affect. Emergency Department Course and Treatment: Patient was reassured. Treatment Plan: Patient will be discharged with instructions to follow-up with Dr. Marquez to see if there is any possibility of repair of her TM. Return to the emergency department for any worsening symptoms. Disposition: To home in improved and stable condition. Impression: 1. Abrasion right external auditory canal. 2. Chronically ruptured right TM. This note was generated with [employer]ation software. It may contain incorrect words, spelling, and punctuation that were not noted in review of the chart prior to signing ED Disposition - Plan for ED Patient: Disposition: Home or Assisted Living Instructions: Abrasion Referrals: Romain Marquez MD [STAFF PHYSICIAN] - 1-2 Weeks
[2019-04-23 16:53] VITALS: BP 108/77; PULSE 62; RESP 15; O2SAT 98
== END 2019-04-23 17:12 | disposition home or self-care (01) ==
LOC: ED 17:00
PROVIDERS: Emergency Provider Emergency Medicine; PCP Family Medicine
DX: S00.411A Abrasion of right ear, initial encounter (principal); H72.91 Unspecified perforation of tympanic membrane, right ear; F41.9 Anxiety disorder, unspecified; F32.9 Major depressive disorder, single episode, unspecified; Z79.899 Other long term (current) drug therapy; X58.XXXA Exposure to other specified factors, initial encounter; Y93.9 Activity, unspecified; Y92.89 Other specified places as the place of occurrence of the external cause; Y99.8 Other external cause status
CPT/HCPCS: 99282

== ENCOUNTER 2019-05-08 22:25 | Emergency (ER) | payer MEDICAID, SELFPAY ==
[2019-05-08 22:25] VITALS: BP 157/94; PULSE 90; RESP 17; TEMP 36.4; O2SAT 100; BMI 46.5
--- NOTE | 2019-05-08 22:46 | ED.VIS.HA ---
History of Present Illness Chief Complaint: Headache Informant: Patient, Family Onset: Weeks Context: Gradual, Exertional Timing: Continuous Quality: Similar Prior Headaches - migraines Location: bifrontal, retroorbital Current Severity: Moderate Maximum Severity: Moderate Worsened by: light sometimes Relieved by: nothing; has tried APAP, ibuprofen, caffeine pills Associated Symptoms: Photophobia - mild, off and on. Negative for: Fever, Vomiting, Sore Throat, Sinus Pressure, Numbness, Preceding Aura, Visual Changes, Blurred Vision, Visual Loss Injury: - - no recent illness or injury Narrative: Patient has a longstanding history of migraines and states she has had a migraine that she has not been able to get to go away for the past week. It came on like usual migraines. She does not recall a specific trigger, she wonders if she had chocolate and caffeine around that time which is triggered her headaches in the past. She also has a longstanding history of nonepileptic seizures, for which she is on no prescription medications, that typically increase in frequency when she has these headaches, and they have recently. She has them daily. She states sometimes they are just a brief staring spell, other times they are a full [place] seizure. She denies any focal neurologic symptoms. No fevers. No recent travel out of the area. No illness or injury. No focal vision changes. - Past Medical History (1) Convulsion, non-epileptic Status: Chronic (2) Migraines Status: Chronic (3) Anxiety Status: Chronic Past Medical History - Allergies and Home Meds Allergies/Adverse Reactions: Allergies dog dander Allergy (Verified 05/08/19 22:28) Other lorazepam [From Ativan] Allergy (Verified 05/08/19 22:28) Other venlafaxine [From Effexor] Allergy (Verified 05/08/19 22:28) Other coconut Adverse Reaction (Verified 05/08/19 22:28) Hives grapefruit Adverse Reaction (Verified 05/08/19 22:28) Hives Primary Care Physician: Arley Dominguez MD [Primary Care Provider] - Surgical History: no surgical history Lives: With Family Smoking Status: Never smoker - Family History Sibling Family History: Reports: Seizures Review of Systems General: Denies: Chills, Fever, Sweats Eyes: Denies: Visual changes - bilaterally, Diplopia ENT: Denies: Bilateral ear pain, Rhinorrhea, Sore throat Cardiovascular: Denies: Chest pain, Palpitations Respiratory: Denies: Dyspnea, Cough, Dyspnea on exertion Gastrointestinal: Reports: Nausea - occasionally. Denies: Abdominal pain, Vomiting, Diarrhea, Melena, Hematochezia Genitourinary: Denies: Dysuria, Hematuria, Frequency Musculoskeletal: Denies: Back pain, Extremity Pain Skin: Denies: Rash, Wounds Neurological: Reports: Headache. Denies: Weakness, Numbness Physical Exam Vital Signs/Narrative: Vital Signs Temp Pulse Resp BP Pulse Ox 05/08/19 22:25 97.6 F L 90 17 157/94 H 100 Inital Vital Signs reviewed: Yes General: Well nourished, Well developed, - - well-appearing, nad Head: NC, AT Eyes: Perrl, EOMI ENT: Moist mucous membranes, No rhinorrhea Neck: Supple, No Lymphadenopathy, Nontender, No Meningismus Cardiovascular: Regular rate, Regular rhythm, No murmurs Respiratory: No distress, CTA bilaterally, Chest nontender Abdomen: Soft, Nontender, Nondistended, Normal bowel sounds Back: Nontender, Normal Inspection Extremities: Nontender, No edema Skin: Normal color, No rash, No Trauma Neuro: Alert, Oriented x3, Cranial nerves II-XII grossly intact, Normal Strength, Normal Sensation, Normal DTR, Normal Gait Psychological: Normal affect, Normal Mood Diagnostic/Tx/Re-eval - Medical Decision Making Patient was saying she typically does well with the cocktail. She was given IV Toradol and Reglan only, and with that she had no significant side effects and her headache went away. She is discharged home with her mother. ED Disposition - Plan for ED Patient: Disposition: Home or Assisted Living Diagnosis: Migraine headache Instructions: ED, Migraine (Classical) Referrals: Arely Dominguez MD [Primary Care Provider] - As Needed
[2019-05-08] MEDS: Metoclopramide 10 MG/2 ML Vial IV (23:02)
[2019-05-08] MEDS: Ketorolac 30 MG/ML Syringe IV (23:04)
[2019-05-09 00:38] VITALS: RESP 16
== END 2019-05-09 00:51 | disposition home or self-care (01) ==
PROVIDERS: Emergency Provider Emergency Medicine; PCP Family Medicine
DX: G43.909 Migraine, unspecified, not intractable, without status migrainosus (principal); R56.9 Unspecified convulsions; F41.9 Anxiety disorder, unspecified; Z79.899 Other long term (current) drug therapy
CPT/HCPCS: 96374; 96375; 99283; A4216

== ENCOUNTER 2019-09-02 21:17 | Emergency (ER) | payer MEDICAID, SELFPAY ==
[2019-09-02 21:19] VITALS: BP 157/97; PULSE 87; RESP 16; TEMP 36.7; O2SAT 98; BMI 46.0
[2019-09-02] MEDS: 0.9% Normal Saline 1,000 ML 1000 ML IV (22:22)
[2019-09-02] MEDS: Ketorolac 30 MG/ML Syringe IV (22:23)
[2019-09-02] MEDS: Metoclopramide 10 MG/2 ML Vial IV (22:24)
[2019-09-02] MEDS: DiphenhydrAMINE 50 MG/ML Syringe 25 MG IV ×2 (22:25→22:46)
--- NOTE | 2019-09-02 22:43 | ED.DCSUM_ITS ---
- ER Visit Summary Date of Service: 09/02/19 Chief Complaint: [Headache and seizure] History of Present Illness: The patient is a 24 F [presents to the emergency department with complaint of a headache that started 3 days ago. Patient has history of migraines. This is typical of her migraines. She describes it as bitemporal. She is got some mild photophobia and occasional nausea. She is had no vomiting. She denies any falls or head injuries. She denies recent illness. Patient also states that she had a seizure this morning which was a staring spell and then had another seizure about 30 minutes ago that was whole body tonic-clonic that lasted about 15 to 20 seconds. Patient states that she d oes not take any seizure medicine because the seizures that she has are emotional and nonepileptic.] Physical Examination: [HEENT-PERRLA, EOMI. Cranial nerves II through XII jt ssly intact. TMs clear. Mucous membranes moist. No adenopathy. Cardiovascular-regular rate and rhythm without murmur or ectopy Lungs-clear to auscultation, chest wall stable without crepitus or subcu emphysema Abdomen-normoactive bowel sounds, soft, nontender, no rebound or rigidity, no peritoneal signs. Neuro [id number] and heel garcia testing within normal limits, negative Romberg, negative for drift, fundi benign Extremities-intact ?4, normal range of motion, normal pulses, atraumatic] Test Results: [None indicated] Emergency Department Course and Treatment: [IV line established. Patient was given a liter normal same fluid bolus. Patient given Reglan, Benadryl, and Toradol. Patient's headache resolved however she started feeling anxious and jittery and was believed that he having a reaction to the Reglan so she was given a dose of Benadryl 25 mg IV.] Treatment Plan: [Discharged to home in stable condition. Patient advised to follow-up with her primary care physician within next 3 to 5 days. Patient advised to return if worsening headache, difficulty with balance or speech, or condition worsen anyway.] Disposition: [Discharged home in stable condition] Impression: [Migrainous cephalgia] This note was generated with [employer] software. It may contain incorrect words, spelling, and punctuation that were not noted in review of the chart prior to signing ED Disposition - Plan for ED Patient: Referrals: Arley Dominguez MD [Primary Care Provider] -
--- NOTE | 2019-09-02 22:45 | ED.DEP ---
ED Disposition - Plan for ED Patient: Instructions: ED, Migraine (Classical) Referrals: Arley Dominguez MD [Primary Care Provider] - 3-5 Days
[2019-09-02 22:46] VITALS: BP 117/82; PULSE 79; RESP 14; O2SAT 98
== END 2019-09-02 22:51 | disposition home or self-care (01) ==
LOC: ED 22:01
PROVIDERS: Emergency Provider Emergency Medicine; PCP Family Medicine
DX: G43.909 Migraine, unspecified, not intractable, without status migrainosus (principal)
CPT/HCPCS: 96374; 96375; 99284; J7030; A4216

== ENCOUNTER 2019-10-02 23:46 | Emergency (ER) | payer MEDICAID, SELFPAY ==
[2019-10-02 23:47] VITALS: BP 140/82; PULSE 90; RESP 16; TEMP 36.4; O2SAT 96; BMI 20.6
--- NOTE | 2019-10-03 00:19 | RAD_ITS ---
STUDY: X-RAY - LEFT SHOULDER REASON FOR EXAM: Female, 24 years old. FALL TODAY POST SEIZURE TECHNIQUE: 2 view(s) of the shoulder. COMPARISON: None. FINDINGS: Normal glenohumeral articulation. Normal acromioclavicular joint. Normal acromion. Normal humeral head and visualized proximal humerus. The soft tissue structures are unremarkable. Normal visualized pulmonary apex. RAD/Shoulder min 2 Views IMPRESSION: Normal x-ray examination of the shoulder. Electronically Signed: Lynn Allen, at 1:13 EDT Tel , Service support ,
--- NOTE | 2019-10-03 00:19 | ED.VIS.FALL ---
History of Present Illness Chief Complaint: Upper Extremity Injury Informant: Patient, Family Occurred: Today Mechanism/Context: Cannot recall fall Narrative: Patient is a 24-year-old female with history of stress-induced seizures, anxiety, depression and migraines presenting with left arm injury. She is right-hand dominant. Patient states she had seizure which is typical for her while she is on the stairs. She is about 5 steps up and then fell down the stairs. Patient states when she woke up her left arm was behind her and she was laying on it. She is complaining of pain in her left shoulder and elbow. She does not remember the episode. Her boyfriend witnessed it and said that she bumped her head against the wall but did not seriously hit her head. Denies any significant headache. She is also point of some mild pain in her right ankle. Patient has any other complaints at this time. She did take Naprosyn prior to arrival. Patient denies any paresthesias or weakness of her arms or legs. She is it hurts to try to elevate her arm above the level of her shoulder. Past Medical History - Allergies and Home Meds Allergies/Adverse Reactions: Allergies dog dander Allergy (Verified 10/02/19 23:50) Other lorazepam [From Ativan] Allergy (Verified 10/02/19 23:50) Other venlafaxine [From Effexor] Allergy (Verified 10/02/19 23:50) Other coconut Adverse Reaction (Verified 10/02/19 23:50) Hives grapefruit Adverse Reaction (Verified 10/02/19 23:50) Hives Primary Care Physician: Arley Dominguez MD [Primary Care Provider] - Past Medical History: - - Anxiety, depression, migraines, nonepileptic seizures Surgical History: no surgical history Smoking Status: Never smoker - Family History Sibling Family History: Reports: Seizures Review of Systems General: Denies: Chills, Fever, Sweats Eyes: Denies: Visual changes - bilaterally, Diplopia ENT: Denies: Rhinorrhea, Sore throat Cardiovascular: Denies: Chest pain, Palpitations Respiratory: Denies: Dyspnea, Cough, Dyspnea on exertion Gastrointestinal: Denies: Abdominal pain, Nausea, Vomiting, Diarrhea, Melena, Hematochezia Genitourinary: Denies: Dysuria, Hematuria, Frequency Musculoskeletal: Reports: Extremity Pain - Left shoulder, left elbow, right ankle . Denies: Back pain Skin: Denies: Rash, Wounds Neurological: Denies: Headache, Weakness, Numbness Psych: Reports: Anxiety Physical Exam Vital Signs/Narrative: Vital Signs Temp Pulse Resp BP Pulse Ox 10/02/19 23:47 97.6 F L 90 16 140/82 H 96 Inital Vital Signs reviewed: Yes General: Well nourished, Well developed, Obese Head: Normocephalic, Atraumatic Eyes: Perrl, EOMI ENT: TM's clear, No hemotympanum or drainage, No trauma, - - No tongue lac noted Neck: Nontender, Full ROM Cardiovascular: Regular rate, Regular rhythm, No murmurs Respiratory: No distress, CTA bilaterally, Chest nontender Abdomen: Soft, Nontender, Nondistended, Normal bowel sounds Back: Nontender Extremeties: No obvious deformity. Extremities are of equal length. Left shoulder-mild diffuse tenderness palpation. Pain with range of motion. Worse with abduction and flexion. Left elbow-no joint effusion noted. Pain with palpation of the olecranon and lateral aspect of the elbow. Right ankle?no swelling or effusion noted. Normal range of motion. Normal Rhodes test. No tenderness of the fibular head. Skin: Normal color, No rash Neurological: Alert, Oriented x3, Cranial nerves II-XII grossly intact, Normal Strength, Normal Sensation Psychological: Normal affect Diagnostic/Tx/Re-eval Clinical Impression(s) from Imaging Studies Shoulder X-Ray 10/03/19 00:19 IMPRESSION: Normal x-ray examination of the shoulder. Electronically Signed: Lynn Allen at 1:13 EDT Tel , Service support , Elbow X-Ray 10/03/19 00:55 IMPRESSION: Normal x-ray examination of the elbow. Electronically Signed: Lynn Allen at 1:13 EDT Tel , Service support , - Medical Decision Making Patient is evaluated for arm pain after a fall. Patient had seizure episode and then fell on the stairs. Patient has a history of pseudoseizures so this is not out of character for her. She does not have any obvious deformity. She is mildly tender with range of motion of her shoulder and elbow. X-ray does not show any acute abnormalities or fractures. Patient is counseled likely this is a contusion from the fall but to follow-up with PCP if no improvement in about a week. She is instructed alternate Tylenol and ibuprofen. Patient is counseled on signs and symptoms requiring return to the emergency room. Patient verbalizes agreement and understand this plan. Patient discharged home in stable and improved condition. ED Disposition - Plan for ED Patient: Disposition: Home or Assisted Living Diagnosis: Fall (on) (from) other stairs and steps, initial encounter, Shoulder injury, Elbow injury Instructions: ED ELBOW CONTUSION, ED Contusion Shoulder Referrals: Arley Dominguez MD [Primary Care Provider] - Additional Instructions: Alternate Tylenol and ibuprofen for pain. He did not have any signs of an acute fracture/broken bone. Return to the emergency room with any worsening symptoms. Follow-up with your primary care doctor next week if you are still having pain.
[2019-10-03] MEDS: Acetaminophen 325 MG Tablet 650 MG PO (00:26)
--- NOTE | 2019-10-03 00:55 | RAD_ITS ---
STUDY: X-RAY - LEFT ELBOW REASON FOR EXAM: Female, 24 years old. FALL TODAY POST SEIZURE, PAIN. TECHNIQUE: 3 view(s) of the elbow. COMPARISON: None. FINDINGS: Normal visualized humerus, radius and ulna. Normal radiocapitellar and ulnotrochlear articulations. The soft tissue structures are unremarkable. RAD/Elbow min 3 Views IMPRESSION: Normal x-ray examination of the elbow. Electronically Signed: Lynn Allen, at 1:13 EDT Tel , Service support ,
== END 2019-10-03 02:12 | disposition home or self-care (01) ==
PROVIDERS: Emergency Provider Emergency Medicine; PCP Family Medicine
DX: S49.92XA Unspecified injury of left shoulder and upper arm, initial encounter (principal); S59.902A Unspecified injury of left elbow, initial encounter; R56.9 Unspecified convulsions; E66.9 Obesity, unspecified; W10.9XXA Fall (on) (from) unspecified stairs and steps, initial encounter; Y93.89 Activity, other specified; Y92.008 Other place in unspecified non-institutional (private) residence as the place of occurrence of the external cause; Y99.8 Other external cause status
CPT/HCPCS: 73030; 73080; 99283

== ENCOUNTER 2019-11-25 17:18 | Emergency (ER) | payer MEDICAID, SELFPAY ==
[2019-11-25 17:19] VITALS: BP 140/91; PULSE 106; RESP 20; TEMP 37.1; O2SAT 98; BMI 42.7
--- NOTE | 2019-11-25 17:29 | ED.VIS.GEN ---
History of Present Illness Chief Complaint: Seizure Informant: Patient, Family Narrative: Patient is a 24-year-old female with a history of pseudoseizures who presents to the emergency department for 3 episodes of seizure-like activity. She states she had 3 episodes within 5 minutes. She is with her friends. They did not know what to do whenever she has these episodes. She states she does not typically come to the emergency department when she does have the seizures. Her friends who are with her did not know what to do which is the reason she is in the emergency department now. She states she is had many EEGs before in the past and all have been negative. She does not follow with a neurologist anymore as she was told they are emotional/stress related. Not on any antiepileptic medications. Her only complaint at this time is a mild headache which she rates as a 2 out of 10. She had this headache prior to the start of the seizures. She did take an Aleve for this. She otherwise denies any other symptoms. She not bite her tongue or have any urinary incontinence. She denies any injury. She denies any recent illnesses including any fever/chills. Her last episode like this was 1 month ago. Past Medical History - Allergies and Home Meds Allergies/Adverse Reactions: Allergies dog dander Allergy (Verified 11/25/19 17:23) Other lorazepam [From Ativan] Allergy (Verified 11/25/19 17:23) Other venlafaxine [From Effexor] Allergy (Verified 11/25/19 17:23) Other grapefruit Adverse Reaction (Verified 11/25/19 17:23) Hives Primary Care Physician: Arley Dominguez MD [Primary Care Provider] - 2 Days Prior records reviewed: Yes Past Medical History: - - Pseudoseizures Surgical History: no surgical history Smoking Status: Never smoker - Family History Sibling Family History: Reports: Seizures Review of Systems All systems negative except as indicated General: Denies: Chills, Fever, Sweats Eyes: Denies: Visual changes - bilaterally, Diplopia ENT: Denies: Rhinorrhea, Sore throat Cardiovascular: Denies: Chest pain, Palpitations Respiratory: Denies: Dyspnea, Cough, Dyspnea on exertion Gastrointestinal: Denies: Abdominal pain, Nausea, Vomiting, Diarrhea Genitourinary: Denies: Dysuria, Hematuria, Frequency Musculoskeletal: Denies: Back pain, Extremity Pain Skin: Denies: Rash, Wounds Neurological: Reports: Headache. Denies: Weakness, Numbness Psych: Reports: Anxiety Physical Exam Vital Signs/Narrative: Vital Signs Temp Pulse Resp BP Pulse Ox 11/25/19 17:19 98.8 F 106 H 20 H 140/91 H 98 Inital Vital Signs reviewed: Yes General: Well nourished, Well developed, No Acute Distress Head: Normocephalic, Atraumatic Eyes: Perrl, EOMI ENT: Moist mucous membranes, No rhinorrhea Neck: Supple, Nontender Cardiovascular: Regular rate, Regular rhythm, No murmurs Respiratory: No distress, CTA bilaterally, Chest nontender Abdomen: Soft, Nontender, Nondistended, Normal bowel sounds Back: Nontender, Normal Inspection Extremities: Nontender, No edema Skin: Normal color, No rash Neurological: Alert, Oriented x3, Cranial nerves II-XII grossly intact, Normal Strength, Normal Sensation Psychological: Normal affect, Normal Mood Diagnostic/Tx/Re-eval - Medical Decision Making Patient presents to the ED for seizure-like activity. She is a history of pseudoseizures. This is similar to her previous episodes. She gets anxiety attacks and feels very stressed whenever she goes into these seizures. At time of arrival she has no complaints except for very mild headache. She is supposed to take hydroxyzine as needed for anxiety. She has not taken any today. We will give her a dose here. Will monitor in the ED for short while and plan on discharge home. Patient observed in the ED for close to 1 hour and did not have any repeat symptoms she does feel comfortable going home at this time. She is to follow-up with her PCP. Warning signs and symptoms which to return to the ED are reviewed. She understands and is agreeable this plan. Discharged home in stable condition. ED Disposition - Plan for ED Patient: Disposition: Home or Assisted Living Diagnosis: Seizure-like activity Instructions: ED Seizure Recurrent Adult Referrals: Arley Dominguez MD [Primary Care Provider] - 2 Days
[2019-11-25] MEDS: hydrOXYzine 10 MG Tablet PO (17:36)
[2019-11-25 18:29] VITALS: BP 132/81; PULSE 92; RESP 18; O2SAT 98
== END 2019-11-25 18:30 | disposition home or self-care (01) ==
LOC: ED 17:54
PROVIDERS: Emergency Provider Emergency Medicine; PCP Family Medicine
DX: R56.9 Unspecified convulsions (principal)
CPT/HCPCS: 99283

== ENCOUNTER 2020-04-06 12:39 | Emergency (ER) | payer MEDICAID, SELFPAY ==
[2020-04-06 12:40] VITALS: BP 160/33; PULSE 73; RESP 16; TEMP 36.3; O2SAT 95; BMI 46.5
--- NOTE | 2020-04-06 13:04 | RAD_ITS ---
STUDY: X-RAY CHEST REASON FOR EXAM: Female, 24 years old. PT REPORTS BEING SENT IN BY [facility] FOR LEFT LOWER CHEST PAIN. PT REPORTS THEY WERE CONCERNED FOR AN ENLARGED SPLEEN. TECHNIQUE: Single AP portable view of the chest. COMPARISON: None. FINDINGS: EKG electrodes are seen. The lungs are clear and expanded. There is no demonstrated pleural abnormality. Normal size heart. Normal mediastinum and osiel. Normal visualized pulmonary arteries. Normal visualized aortic arch and descending thoracic aorta. Normal visualized thoracic spine. Normal visualized ribs, clavicles, and shoulders. There is no demonstrated abnormality of the visualized soft tissue structures of the upper abdomen. RAD/Chest 1 View (Portable) IMPRESSION: Normal x-ray examination of the chest. Electronically Signed: Og Govea MD at 13:52 EST , Service support ,
--- NOTE | 2020-04-06 13:04 | EKG12_ITS ---
Test Reason : ABD PAIN Blood Pressure : / mmHG Vent. Rate : 078 BPM Atrial Rate : 078 BPM P-R Int : 130 ms QRS Dur : 068 ms QT Int : 380 ms P-R-T Axes : 008 030 029 degrees QTc Int : 433 ms Normal sinus rhythm with sinus arrhythmia Normal ECG Confirmed by KATHERIN RAYO, ADRIANO ([id number]), fashion editor JALEESA WADE ([id number]) on 04/08/2020 1:48:21 PM Referred By: SHEREE Confirmed By:ADRIANO PANDEY MD
--- NOTE | 2020-04-06 13:05 | ED.DCSUM_ITS ---
- ER Visit Summary Date of Service: 04/06/20 Chief Complaint: Left lower chest pain History of Present Illness: The patient is a 24 F who presents with left lower chest pain that has been constant for the past 2 days. Patient states he came on gradually. Patient states the pain is sharp. Patient states pain is worse with deep breathing. Patient states that it improves with Tylenol. Patient admits to some shortness of breath. Patient denies any fevers or chills. Patient denies any nausea or vomiting. Patient denies any palpitations. Patient denies any cough. Patient states she went to an urgent care today and was referred to the emergency department for further evaluation. Physical Examination: Vital signs are stable. Patient is afebrile. Patient is in no acute distress. Oral mucosa is pink and moist. Neck is supple. Trachea is midline. There is no JVD noted. Heart was regular rate and rhythm. Lungs are clear and equal bilaterally. There is some left lower chest wall tenderness. There is no bony crepitance or step-off. Abdomen is soft. Bowel sounds are normal. There is no tenderness. There is no rebound or guarding noted. Skin is warm dry. Cranial nerves II through XII are intact. There are no focal motor or sensory deficits noted. Extremities are intact. There is no calf tenderness or edema. Test Results: EKG was obtained. On my interpretation, there is normal sinus rhythm with a rate of 78. There are no acute ST or T wave changes. Portable 1 view chest x-ray was obtained. On my interpretation, lung wood are clear. There is normal cardiac silhouette. Bony thorax is normal. There is no acute process noted. Radiologist also interpreted the x-ray and agrees. CBC, basic metabolic profile, troponin, and D-dimer were obtained and were all within normal limits. Emergency Department Course and Treatment: Patient was advised of her findings. Patient was advised that this may be musculoskeletal or pleurisy. Patient was instructed to take ibuprofen. Patient was instructed to follow-up with her primary care physician in 5 to 7 days. Patient understood and was agreeable with the plan. All questions were answered. Disposition: Discharge home Impression: 1. Chest pain This note was generated with [employer] software. It may contain incorrect words, spelling, and punctuation that were not noted in review of the chart prior to signing ED Disposition - Plan for ED Patient: Disposition: Home or Assisted Living Diagnosis: Chest pain Instructions: ED Chest Pain, Uncertain Cause Referrals: Arley Dominguez MD [Primary Care Provider] - 5-7 Days
[2020-04-06 13:34] LABS: Absolute Lymphocyte Count 2.42 X10^3/uL (0.83-4.51); Absolute Neutrophil Count 4.8 X10^3/uL (2.0-7.7); Basophil# 0.08 X10^3/uL; Eosinophil# 0.44 X10^3/uL; Eosinophils% 5.4 % (0-5); Hematocrit 43.4 % (37-47); Hemoglobin 13.9 g/dL (12.0-15.0); Lymphocyte # 2.42 X10^3/ul (4.0); Lymphocyte % 29.4 % (19-41); Mean Corpuscular Hgb 28.2 pg (27.0-32.0); Monocyte% 6.1 % (0-10); NRBC Flagged by Analyzer 0 % (0-5); Neutrophil # 4.77 X10^3/uL (2.7-7.7); Platelet Count 316 K/mm3 (150-450); RBC Distribution Width CV 11.9 % (11.6-14.6); RBC Distribution Width SD 38.1 fl (35.1-43.9); Red Blood Count 4.93 M/mm3 (4.2-5.4); White Blood Count 8.2 K/mm3 (4.4-11.0)
[2020-04-06 13:37] VITALS: BP 139/83; PULSE 83; RESP 13; O2SAT 95
[2020-04-06 13:49] VITALS: BP 172/74; PULSE 75; RESP 16
[2020-04-06 13:53] LABS: ALB/GLOB Ratio 0.7 RATIO (0.9-2.4); AST(SGOT) 23 U/L (15-37); Alanine Aminotransfer ALT/SGPT 26 U/L (13-56); Albumin, Serum 3.3 g/dL (3.2-5.0); Alkaline Phosphatase 105 U/L (45-117); Anion Gap 5 (5-15); BUN 16 mg/dL (7-18); BUN/Creat Ratio 17.5 RATIO (10-20); Chloride 107 mmol/L (98-107); Creatinine, Serum 0.92 mg/dL (0.55-1.02); EST Glomerular Filtration Rate 81 mL/min (>60); Est Glom Filt Rate - Afr Amer 98 mL/min (>60); Estimated Creatinine Clearance 82.83 ml/min; Globulin 4.7 g/dL (2.2-4.2); Glucose 90 mg/dL (74-106); Lipase 129 U/L (73-393); Potassium 4.5 mmol/L (3.5-5.1); Sodium Level 139 mmol/L (136-145)
[2020-04-06 15:08] VITALS: BP 143/70; PULSE 83; RESP 17; O2SAT 98
[2020-04-06 15:35] VITALS: BP 113/76; PULSE 88; RESP 22; O2SAT 98
== END 2020-04-06 15:38 | disposition home or self-care (01) ==
PROVIDERS: Emergency Provider Emergency Medicine; PCP Family Medicine
DX: R07.89 Other chest pain (principal)
CPT/HCPCS: 71045; 80053; 83690; 84484; 85025; 85379; 93005; 99284; A4216

== ENCOUNTER 2020-07-19 10:42 | Emergency (ER) | payer MEDICAID, SELFPAY ==
[2020-06-04 12:23] VITALS: BMI 46.5
[2020-07-19 10:42] VITALS: BP 115/84; PULSE 90; RESP 18; TEMP 36.6; O2SAT 98; BMI 101.8
--- NOTE | 2020-07-19 10:49 | RAD_ITS ---
STUDY: X-RAY - RIGHT ANKLE REASON FOR EXAM: Female, 24 years old. Right ankle pain after fall injury. TECHNIQUE: 3 view(s) of the ankle. COMPARISON: None. FINDINGS: Normal visualized distal tibia and fibula. Normal medial and lateral malleoli. Normal tibiotalar articulation and ankle mortise. Normal visualized talus and calcaneus. The visualized subtalar, talonavicular, calcaneocuboid and tarsal articulations are normal. The soft tissue structures are unremarkable. RAD/Ankle min 3 Views IMPRESSION: Normal x-ray examination of the ankle. Electronically Signed: David Montenegro MD at 11:25 EDT , Service support ,
--- NOTE | 2020-07-19 10:50 | EX.ED.DYSGE1 ---
HPI History of Present Illness Chief Complaint: Lower Extremity Injury Informant: patient Narrative Narrative: 24-year-old female presents with right ankle and foot pain. States she fell down 5 stairs yesterday after her dog ran into her. States that she has pain in her right ankle and foot. Describes it as aching and worse with movement. No relieving factors. Denies any head injury or loss of consciousness. Denies any numbness and tingling of her leg or foot. Patient is not on anticoagulation. PFSH PFSH Home Medications hydroxyzine HCl 25 mg PO PRN PRN 11/25/19 [History Last Taken Unknown] drospirenone-ethinyl estradiol 1 ea PO DAILY 04/06/20 [History Last Taken Unknown] naproxen 500 mg PO BID #10 tab 07/19/20 [Rx Last Taken Unknown] Allergy/AdvReac Type Severity Reaction Status Date / Time dog dander Allergy Other Verified 07/19/20 10:44 lorazepam [From Ativan] Allergy Other Verified 07/19/20 10:44 venlafaxine [From Effexor] Allergy Other Verified 07/19/20 10:44 grapefruit AdvReac Hives Verified 07/19/20 10:44 Social History Smoking Status: Never smoker ROS ROS ED Constitutional Constitutional ED: Denies chills, fever(s) or sweats Eyes Eyes: Denies blurry vision, change in vision or diplopia ENT ENT ED: Denies rhinorrhea or sore throat Cardiovascular Cardiovascular: Denies chest pain, orthopnea, palpitations or racing heartbeat Respiratory/Chest Respiratory/Chest: Denies cough, dyspnea, dyspnea on exertion, orthopnea or sputum Gastrointestinal Gastrointestinal: Denies abdominal pain, constipation, diarrhea, melena, nausea or vomiting Genitourinary Genitourinary ED: Denies dysuria, hematuria or urinary frequency Musculoskeletal Musculoskeletal: Reports arthralgias; Denies myalgias or neck pain Integumentary Denies rash Neurologic Neurologic: Denies headache(s), paresthesias or weakness Psychiatric Psychiatric: Denies anxiety or depression Hematologic/Lymphatic Hematologic/Lymphatic: Denies easy bleeding or easy bruising Allergic/Immunologic Allergic/Immunologic ED: Denies mouth swelling or tongue swelling EXAM Physical Exam Const Vital Signs: 07/19/20 10:42 Temperature 97.9 F Temperature Source Temporal Pulse Rate 90 Respiratory Rate 18 Blood Pressure 115/84 H Blood Pressure Mean 94 Pulse Ox 98 Oxygen Delivery Method Room Air Positive well nourished and well developed General Appearance ED: well developed HEENT Reports TM's clear and moist mucous membranes normocephalic and atraumatic Tympanic Membrane ED: Yes TM's clear Eyes PERRL and EOMs intact bilaterally Neck no lymphadenopathy, supple and no JVD Chest Wall inspection of chest normal Resp normal respiratory effort and clear to auscultation bilaterally Cardio regular rate, S1 normal heart sound, S2 normal heart sound and no murmurs Peripheral Pulses: pulses 2+ throughout GI soft to palpation, non-tender and non-distended Back/Spine no CVA tenderness and no thoracic nor lumbar tenderness Extremity Extremity Narrative: Tenderness to palpation of the lateral right ankle. No overlying skin changes. Full range of motion. Strong palpable DP and PT pulses. Sensation intact. Tenderness also to palpation at the base of the right first toe. No overlying skin changes. Full range of motion of the toe. Good capillary refill. Neuro oriented x3, CN's II-XII intact bilaterally and no sensory deficits noted Sensorium / Orientation: alert Motor Exam: strength 5/5 throughout Psych mental status grossly normal Skin no rashes or lesions noted MDM MDM MDM Narrative Medical decision making narrative: Patient appears well and nontoxic. Vital signs within normal limits. X-ray of the foot and ankle interpreted by myself shows no evidence of acute fracture dislocation. Radiology concurs. Patient be placed in [place] wrap and advised on rest, ice, compression, elevation. Will be placed on Naprosyn for the next 5 days. Asked to return for new or worsening symptoms. Patient agreeable and discharged home in stable condition. Radiography Diagnostic Testing: Radiology Impression Ankle X-Ray 07/19/20 10:49 IMPRESSION: Normal x-ray examination of the ankle. Electronically Signed: David Montenegro MD at 11:25 EDT , Service support , Foot X-Ray 07/19/20 10:51 IMPRESSION: Normal x-ray examination of the foot. Electronically Signed: David Montenegro MD at 11:26 EDT , Service support , Discharge Plan Triage Chief Complaint: Lower Extremity Injury ED Provider: Taiwo Wiggins Dx/Rx/DC Orders Clinical Impression: Ankle sprain, Fall Instructions: ED Ankle Sprain (Adult) Prescriptions: New naproxen 500 mg tablet 500 mg PO BID Qty: 10 RF: 0 No Action hydroxyzine HCl 25 MG tablet 25 mg PO PRN PRN (Reason: Anxiety) RF: 0 drospirenone-ethinyl estradiol 1 EACH tablet 1 ea PO DAILY RF: 0 Primary Care Provider: Arley Dominguez Referrals: Arley Dominguez MD [Primary Care Provider] - 2 Days Disposition Disposition: Home, self care
--- NOTE | 2020-07-19 10:51 | RAD_ITS ---
STUDY: X-RAY - RIGHT FOOT CLINICAL: Female, 24 years old. Right foot pain after fall injury. TECHNIQUE: 3 view(s) of the foot. COMPARISON: None. FINDINGS: Normal talus, calcaneus, and tarsal bones. Normal visualized subtalar, talonavicular, calcaneocuboid, tarsal and tarsometatarsal articulations. Normal metatarsi. Normal metatarsophalangeal joint of the great toe. Normal tibial and fibular sesamoid bones. Normal interphalangeal joint of the great toe. Normal phalanges of the great toe. Normal second through fifth metatarsophalangeal joints. Normal interphalangeal joints and phalanges of the lesser toes. The soft tissue structures are unremarkable. RAD/Foot min 3 Views IMPRESSION: Normal x-ray examination of the foot. Electronically Signed: David Montenegro MD at 11:26 EDT , Service support ,
[2020-07-19] MEDS: Naproxen 500 MG Tablet PO (11:05)
[2020-07-19 13:00] VITALS: BP 112/78; PULSE 77; RESP 12; O2SAT 98
== END 2020-07-19 13:01 | disposition home or self-care (01) ==
PROVIDERS: Emergency Provider Emergency Medicine; PCP Family Medicine
DX: S93.401A Sprain of unspecified ligament of right ankle, initial encounter (principal); W54.1XXA Struck by dog, initial encounter; Y93.89 Activity, other specified; Y92.009 Unspecified place in unspecified non-institutional (private) residence as the place of occurrence of the external cause; Y99.8 Other external cause status
CPT/HCPCS: 73610; 73630; 99283

== ENCOUNTER 2020-10-18 12:42 | Emergency (ER) | payer MEDICAID, SELFPAY ==
[2020-10-18 12:43] VITALS: BP 140/105; PULSE 92; RESP 18; TEMP 36.4; O2SAT 98; BMI 48.9
--- NOTE | 2020-10-18 12:48 | EKG12_ITS ---
Test Reason : PALPS/CP Blood Pressure : / mmHG Vent. Rate : 095 BPM Atrial Rate : 095 BPM P-R Int : 126 ms QRS Dur : 068 ms QT Int : 350 ms P-R-T Axes : 050 039 045 degrees QTc Int : 439 ms Normal sinus rhythm Normal ECG Confirmed by KATHERIN RAYO, ADRIANO ([id number]), website/blog editor AIDE AKERS ([id number]) on 10/20/2020 9:34:26 AM Referred By: VINICIO Confirmed By:ADRIANO PANDEY MD
--- NOTE | 2020-10-18 13:10 | RAD_ITS ---
STUDY: X-RAY CHEST REASON FOR EXAM: Female, 25 years old. chest pain TECHNIQUE: Single AP portable view of the chest. COMPARISON: 04/06/2020. FINDINGS: Cardiac silhouette unremarkable. Pulmonary vascularity unremarkable. Aorta unremarkable. No focal patchy airspace opacities. No pleural effusions. Upper abdomen unremarkable. Osseous structures intact. No pneumothorax. RAD/Chest 1 View (Portable) IMPRESSION: No acute cardiopulmonary findings Electronically Signed: Romain Jensen DO at 13:49 EDT Tel , Service support ,
[2020-10-18 13:14] LABS: Absolute Lymphocyte Count 2.98 X10^3/uL (0.83-4.51); Absolute Neutrophil Count 4.9 X10^3/uL (2.0-7.7); Basophil# 0.07 X10^3/uL; Basophil% 0.8 % (0-1); Eosinophil# 0.67 X10^3/uL; Eosinophils% 7.2 % (0-5); Hematocrit 40.9 % (37-47); Hemoglobin 13.4 g/dL (12.0-15.0); Lymphocyte # 2.98 X10^3/ul (0.83-4.51); Mean Corp Hgb Conc 32.8 g/dL (32-36); Mean Corpuscular Hgb 28.4 pg (27.0-32.0); Mean Corpuscular Volume 86.7 fL (81-99); Mean Platelet Vol. 10.9 fl (6.2-12.0); Monocyte# 0.68 X10^3/uL; Monocyte% 7.3 % (0-10); NRBC Flagged by Analyzer 0 % (0-5); Neutrophil # 4.88 X10^3/uL (2.7-7.7); Neutrophil % 52.4 % (47-70); Platelet Count 343 K/mm3 (150-450); RBC Distribution Width CV 11.7 % (11.6-14.6); RBC Distribution Width SD 37.2 fl (35.1-43.9); Red Blood Count 4.72 M/mm3 (4.2-5.4); White Blood Count 9.3 K/mm3 (4.4-11.0)
--- NOTE | 2020-10-18 13:21 | EDS_ITS ---
HPI History of Present Illness Chief Complaint: Chest Pain Informant: patient Narrative Narrative: Patient is a 25-year-old female with a past medical history of anxiety, seizure disorder who presents to the emergency department for headache, palpitations and elevated blood pressure at home. She states that she had a migraine a few days prior after drinking a Monster energy drink. She is drinking a lot of fluids to try to flush this out. She states her headache has gone down to a 3 out of 10. She has been taking ibuprofen for this. She states that she was having palpitations whenever she drank a Monster and has been having it this intermittently since. She denies any chest pain or shortness. She ended up taking her home blood pressure and it was 160/110 so her PCP told her to come to the emergency department. She has no known history of hyperten jose. She denies any leg swelling or calf pain. No history of CAD. On arrival to the emergency department her blood pressure is trended downward and she states that her headache is improving. She denies any recent illness. [facility] Medical History Anxiety Depression Migraine Seizure Home Medications NK 10/18/20 [History Last Taken Unknown] Allergy/AdvReac Type Severity Reaction Status Date / Time dog dander Allergy Other Verified 10/18/20 12:57 lorazepam [From Ativan] Allergy Other Verified 10/18/20 12:57 venlafaxine [From Effexor] Allergy Other Verified 10/18/20 12:57 grapefruit AdvReac Hives Verified 10/18/20 12:57 Social History Smoking Status: Never smoker ROS [facility] ED Constitutional Constitutional ED: Denies chills or fever(s) Eyes Eyes: Denies change in vision ENT ENT ED: Denies epistaxis or rhinorrhea Cardiovascular Cardiovascular: Reports palpitations; Denies chest pain Respiratory/Chest Respiratory/Chest: Denies cough or dyspnea Gastrointestinal Gastrointestinal: Denies abdominal pain, diarrhea, nausea or vomiting Genitourinary Genitourinary ED: Denies dysuria, hematuria or urinary frequency Musculoskeletal Musculoskeletal: Denies back pain or neck pain Integumentary Denies rash Neurologic Neurologic: Reports headache(s); Denies dizziness or weakness EXAM Physical Exam Const Vital Signs: 10/18/20 12:43 10/18/20 12:48 10/18/20 12:59 Temperature 97.5 F L Temperature Source Temporal Pulse Rate 92 Respiratory Rate 18 Respiratory Effort Normal Respiratory Pattern Normal Blood Pressure 140/105 H Blood Pressure Mean 116 Pulse Ox 98 Oxygen Delivery Method Room Air Room Air Positive well nourished and well developed General Appearance ED: well developed and NAD HEENT Reports normocephalic and head/scalp atraumatic Eyes PERRL and EOMs intact bilaterally Neck supple Chest Wall inspection of chest normal Resp normal respiratory effort and clear to auscultation bilaterally Auscultation: Negative for rales, rhonchi or wheezes Cardio regular rate, regular rhythm and no murmurs GI normal to inspection, nondistended, normoactive bowel sounds and non-tender Palpation: soft; Negative for guarding or rebound tenderness present Extremity normal to inspection General Extremety ED: Negative for edema or tenderness General Extremity: Negative for edema Neuro Sensorium / Orientation: alert Motor Exam: strength 5/5 throughout Psych mental status grossly normal Skin no rashes or lesions noted MDM MDM MDM Narrative Medical decision making narrative: Patient presents to the emergency department for palpitations, high blood pressure at home. She has had a mild headache. She thought that this was all due to drinking a Monster energy drink. On arrival to the ED her blood pressure has trended downward. He is not tachyca rdic. She is feeling better at this time. EKG and basic lab work being obtained. Patient's work-up did not reveal any significant acute abnormality. Her blood pressure has trended down throughout course of ED stay. She is feeling much better. At this time will discharge home in stable condition. She is to follow-up with her PCP. Return precautions reviewed. She is agreeable with this plan. Lab Data Labs: Laboratory Results - last 24 hr 10/18/20 10/18/20 10/18/20 13:09 13:09 13:38 WBC 9.3 RBC 4.72 Hgb 13.4 Hct 40.9 MCV 86.7 MCH 28.4 MCHC 32.8 RDW Std Deviation 37.2 RDW Coeff of Khanh 11.7 Plt Count 343 MPV 10.9 Immature Gran % (Auto) 0.300 Neut % (Auto) 52.4 Lymph % (Auto) 32.0 Petroleum % (Auto) 7.3 Eos % (Auto) 7.2 H Baso % (Auto) 0.8 Absolute Neuts (auto) 4.9 Absolute Lymphs (auto) 2.98 Nucleated RBC % 0 Sodium 140 Potassium 3.7 Chloride 110 H Carbon Dioxide 26.0 Anion Gap 4 L BUN 15 Creatinine 0.74 Estim Creat Clear Calc 102.10 Est GFR (MDRD) Af Amer 126 Est GFR (MDRD) Non-Af 104 BUN/Creatinine Ratio 20.4 H Glucose 120 H Calcium 9.2 Troponin I High Sens 5 Serum , Qual NEGATIVE Radiography Diagnostic Testing: Radiology Impression Chest X-Ray 10/18/20 13:10 IMPRESSION: No acute cardiopulmonary findings Electronically Signed: Romain Jensen DO at 13:49 EDT Tel , Service support , EKG Initial EKG: Attestation: I personally reviewed and interpreted this EKG as follows: (Rate of 95 bpm and normal sinus rhythm. Normal intervals. Normal axis. No significant ST elevations or depressions. No T wave abnormalities.) Discharge Plan Triage Chief Complaint: Chest Pain Other Complaint: Hypertension ED Provider: Papo Barron Dx/Rx/DC Orders Clinical Impression: Headache, Palpitations Instructions: ED Palpitations Prescriptions: No Action NK RF: 0 Primary Care Provider: Arley Dominguez Referrals: Arley Dominguez MD [Primary Care Provider] - 3-5 Days Disposition Disposition: Home, Self Care
[2020-10-18 13:30] LABS: Anion Gap 4 (5-15); BUN 15 mg/dL (7-18); BUN/Creat Ratio 20.4 RATIO (10-20); Calcium,Total 9.2 mg/dL (8.5-10.1); Chloride 110 mmol/L (98-107); Creatinine, Serum 0.74 mg/dL (0.55-1.02); EST Glomerular Filtration Rate 104 mL/min (>60); Est Glom Filt Rate - Afr Amer 126 mL/min (>60); Glucose 120 mg/dL (74-106); Potassium 3.7 mmol/L (3.5-5.1); Sodium Level 140 mmol/L (136-145); Troponin-I HS 5 pg/mL (3.0-54.0)
[2020-10-18 14:11] LABS: Internal QC Validated? YES +Cl - CLEAR BKGD; Pregnancy, Serum, hCG Quali. NEGATIVE Negative
[2020-10-18 14:38] VITALS: BP 116/88; PULSE 72; RESP 15; O2SAT 98
== END 2020-10-18 14:38 | disposition home or self-care (01) ==
PROVIDERS: Emergency Provider Emergency Medicine; PCP Family Medicine
DX: R00.2 Palpitations (principal); R51.9 Headache, unspecified
CPT/HCPCS: 71045; 80048; 84484; 84703; 85025; 93005; 99284; A4216

== ENCOUNTER 2020-11-19 14:09 | Emergency (ER) | payer MEDICAID, SELFPAY ==
[2020-11-19 14:10] VITALS: BP 137/73; PULSE 76; RESP 16; TEMP 36.4; O2SAT 99; BMI 45.8
--- NOTE | 2020-11-19 15:42 | CT_ITS ---
STUDY: CT BRAIN WITHOUT CONTRAST REASON FOR EXAM: Female, 25 years old. Severe headache RADIATION DOSAGE (If Supplied By Facility): CTDIvol = ( 44.99 ) mGy, DLP = ( 829.85 ) mGycm TECHNIQUE: Transaxial CT imaging of the brain was performed without administration of intravenous contrast material. Individualized dose optimization techniques were used for this CT. COMPARISON: No relevant priors. FINDINGS: Normal soft tissue structures. Normal calvarium. Normal size ventricles and extra-axial spaces for the patient''s age. Normal white matter tracts of the cerebral hemispheres. Normal basal ganglia and thalami. Normal brainstem. Normal cerebellum. There is no intracranial hemorrhage. There are no findings of an acute ischemic infarction. There is mucoperiosteal inflammatory disease of the paranasal sinuses consistent with moderate chronic sinusitis. CT/Brain/Head without Contrast IMPRESSION: No acute intracranial abnormalities Paranasal sinusitis Electronically Signed: Elpidio Whitfield MD at 16:05 EDT , Service support ,
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
[2020-11-19] MEDS: Lidocaine 5% Patch 1 PATCH TOPICAL (16:56)
[2020-11-19] MEDS: cycloBENZAPRine HCl 10 MG Tablet PO (16:56)
[2020-11-19 17:01] VITALS: BP 139/85; PULSE 74; RESP 16; O2SAT 98
== END 2020-11-19 17:02 | disposition home or self-care (01) ==
PROVIDERS: Emergency Provider Emergency Medicine; PCP Family Medicine
DX: S09.90XA Unspecified injury of head, initial encounter (principal); S16.1XXA Strain of muscle, fascia and tendon at neck level, initial encounter; X58.XXXA Exposure to other specified factors, initial encounter
CPT/HCPCS: 70450; 72125; 99283

== ENCOUNTER 2020-12-20 20:20 | Emergency (ER) | payer MEDICAID, SELFPAY ==
[2020-12-20 20:21] VITALS: BP 161/82; PULSE 101; RESP 14; TEMP 35.7; O2SAT 100; BMI 50.1
--- NOTE | 2020-12-20 21:51 | EDS_ITS ---
HPI HPI - URI History of Present Illness Chief Complaint: Ear Problem Detail of Chief Complaint: Right ear pain, upper respiratory viral symptoms with loss of taste and sme Informant: patient and parent Onset/Context/Timing Onset: Days Context: Sudden Onset Timing: Continuous Quality: Sore throat initially, ear pain since Sunday, loss of taste and smell sin Location: Upper respiratory Current Severity: Mild Maximum Severity: Moderate Worsened by: Not Worsened By Swallowing and Eating Solids Relieved by: Not Relieved By Tylenol Associated Symptoms Associated Symptoms: Positive for Nasal Congestion, Headache, Myalgias, Nausea, Shortness of Breath, Nonproductive cough and - (Exposure to individuals with Cov id and loss of taste and smell); Negative for Sinus Pressure, Vomiting, Diarrhea, Chest Pain, Hemoptysis and Productive Cough Narrative Narrative: Patient is a 25-year-old woman who presents because of ear pain but also has symptoms consistent with Covid. Illness started 3 to 4 days ago. Ear pain has been present for the past 2 days. She denies fever. She does complain of slight headache. She denies drainage from her ears. She denies throat pain or inability to swallow. She denies change in voice. Her cough is nonproductive. She states the cough is mild. She denies nausea, vomiting diarrhea. She denies urologic symptoms. She has been vaccinated for Covid. Prior similar symptoms: No Recent Illness/Hospitalization: No ROS ROS ED Constitutional Constitutional ED: Denies chills, fever(s), subjective or sweats Eyes Eyes: Denies blurry vision, change in vision or diplopia ENT ENT ED: Reports ear pain right, rhinorrhea and sore throat Cardiovascular Cardiovascular: Denies chest pain, orthopnea, palpitations, paroxysmal nocturnal dyspnea or racing heartbeat Respiratory/Chest Respiratory/Chest: Reports cough and dyspnea; Denies dyspnea on exertion, orthopnea, paroxysmal nocturnal dyspnea or sputum Gastrointestinal Gastrointestinal: Denies abdominal pain, diarrhea, nausea or vomiting Genitourinary Genitourinary ED: Denies dysuria, hematuria or urinary frequency Musculoskeletal Musculoskeletal: Reports myalgias; Denies arthralgias, back pain or neck pain Integumentary Denies rash Neurologic Neurologic: Reports headache(s); Denies weakness Hematologic/Lymphatic Hematologic/Lymphatic: Denies easy bleeding or easy bruising [facility] Medical History Anxiety Depression Migraine Seizure Home Medications cyclobenzaprine 10 mg PO BID PRN #10 tab 11/19/20 [Rx Last Taken Unknown] lidocaine [Lidoderm] 1 patch TOPICAL DAILY #6 ea 11/19/20 [Rx Last Taken Unknown] amoxicillin 500 mg PO TID #30 tab 12/20/20 [Rx Last Taken Unknown] Allergy/AdvReac Type Severity Reaction Status Date / Time dog dander Allergy Other Verified 12/20/20 20:21 grapefruit AdvReac Hives Verified 12/20/20 20:21 lorazepam [From Ativan] AdvReac Other Verified 12/20/20 20:21 venlafaxine [From Effexor] AdvReac Other Verified 12/20/20 20:21 Social History (Updated 12/20/20 @ 21:[address] Clarence Markham MD) household members: family Smoking Status: Never smoker alcohol intake: never substance use type: does not use EXAM Physical Exam Const Vital Signs: 12/20/20 20:21 Temperature 96.2 F L Temperature Source Temporal Pulse Rate 101 H Respiratory Rate 14 Blood Pressure 161/82 H Blood Pressure Mean 108 Pulse Ox 100 Oxygen Delivery Method Room Air Positive well nourished, well developed and obese General Appearance ED: well developed and NAD; Negative for cyanotic, diaphoretic or pallor Nutritional Appearance: obese HEENT Reports moist mucous membranes normocephalic and atraumatic; Negative for scalp tenderness Face and Sinus: Negative for sinus tenderness or facial tenderness External Ear: external ears normal, mastoids normal and no preauricular adenopathy External Auditory Canal: EAC's normal Tympanic Membrane ED: Yes TM normal on the left and TM abnormal dull, erythematous and loss of landmarks Throat: posterior oropharynx normal Eyes PERRL and EOMs intact bilaterally General Eye ED: Negative for pale conjunctiva or scleral icterus Neck no lymphadenopathy, supple, no meningeal signs and no JVD General: Negative for anterior neck swelling Resp normal respiratory effort and clear to auscultation bilaterally Cardio S1 normal heart sound, S2 normal heart sound and no murmurs Rate: regular rate Rhythm: regular rhythm GI non-tender, non-distended and no masses Auscultation: normoactive bowel sounds Palpation: soft Back/Spine no CVA tenderness Extremity normal to inspection and full ROM General Extremety ED: Negative for cyanosis or tenderness General Extremity: Negative for cyanosis Neuro oriented x3 and CN's II-XII intact bilaterally Sensorium / Orientation: alert Psych mental status grossly normal Skin General Skin Exam: Negative for jaundice or pallor Lesions: no lesions Rashes: no rashes MDM MDM MDM Narrative Medical decision making narrative: Clinically patient has Covid. She also has otitis media on the right and her Sunday with amoxicillin. Covid test was ordered. Lab Data Attestation: I reviewed the patient's lab results. Lab results narrative: Covid test is negative. I was informed by her mother that she had a negative Covid test yesterday. This may represent a false negative since she has symptoms that are suggestive of Covid. Discharge Plan Triage Chief Complaint: Ear Problem ED Provider: Clarence Markham Dx/Rx/DC Orders Clinical Impression: Acute otitis media, right, Upper respiratory infection, viral, Loss of taste, Loss of smell Instructions: ED Otitis Media Antibiotic ..., ED URI, Viral, No Abx (Adult) Prescriptions: New amoxicillin 500 MG tablet 500 mg PO TID Qty: 30 RF: 0 No Action cyclobenzaprine 10 mg tablet 10 mg PO BID PRN (Reason: muscle spasm) Qty: 10 RF: 0 lidocaine [Lidoderm] 5 % adhesive patch,medicated 1 patch topical DAILY Qty: 6 RF: 0 Primary Care Provider: Arley Dominguez Referrals: Arley Dominguez MD [Primary Care Provider] - 1 Week if not improving Disposition Disposition: Home, Self Care
[2020-12-20] MEDS: AMOXICILLIN 500 MG CAPSULE PO (22:01)
== END 2020-12-20 22:41 | disposition home or self-care (01) ==
PROVIDERS: Emergency Provider Emergency Medicine; PCP Family Medicine
DX: H66.91 Otitis media, unspecified, right ear (principal); J06.9 Acute upper respiratory infection, unspecified; R43.9 Unspecified disturbances of smell and taste; F41.9 Anxiety disorder, unspecified; F32.A Depression, unspecified; Z79.899 Other long term (current) drug therapy; E66.9 Obesity, unspecified
CPT/HCPCS: 87426; 99283

== ENCOUNTER 2021-02-20 13:02 | Emergency (ER) | payer MEDICAID, SELFPAY ==
[2021-02-20 13:03] VITALS: BP 158/66; PULSE 81; RESP 16; TEMP 36.2; O2SAT 98; BMI 46.3
== END 2021-02-20 14:03 | disposition left against medical advice (07) ==
LOC: ED 14:08
PROVIDERS: PCP Family Medicine
DX: Z53.21 Procedure and treatment not carried out due to patient leaving prior to being seen by health care provider (principal)

== ENCOUNTER 2021-03-01 15:58 | Emergency (ER) | payer MEDICAID, SELFPAY ==
[2021-03-01 15:59] VITALS: BP 140/75; PULSE 107; RESP 16; TEMP 36.9; O2SAT 97; BMI 49.6
--- NOTE | 2021-03-01 16:13 | EDS_ITS ---
HPI History of Present Illness Chief Complaint: Weakness Detail of Chief Complaint: Cough and weakness and body aches Informant: patient Narrative Narrative: Patient presents to the emergency department complaining of a cough for the last 3 days. Patient states that started having body aches yesterday. She complains of frequent headaches but she has history of migraines. Patient has had the COVID-vaccine but not the booster. She denies COVID exposures. She denies fever. [facility] Medical History Anxiety Depression Migraine Seizure Home Medications cyclobenzaprine 10 mg PO BID PRN #10 tab 11/19/20 [Rx Last Taken Unknown] lidocaine [Lidoderm] 1 patch TOPICAL DAILY #6 ea 11/19/20 [Rx Last Taken Unknown] amoxicillin 500 mg PO TID #30 tab 12/20/20 [Rx Last Taken Unknown] Allergy/AdvReac Type Severity Reaction Status Date / Time dog dander Allergy Other Verified 03/01/21 16:02 grapefruit AdvReac Hives Verified 03/01/21 16:02 lorazepam [From Ativan] AdvReac Other Verified 03/01/21 16:02 venlafaxine [From Effexor] AdvReac Other Verified 03/01/21 16:02 Social History (Updated 12/20/20 @ 21:[address] Clarence Markham MD) household members: family Smoking Status: Never smoker alcohol intake: never substance use type: does not use ROS ROS ED Constitutional Constitutional ED: Reports systems reviewed and no addt'l complaints, except as documented; Denies body ache(s), change in weight or chills Eyes Eyes: Denies acute decrease in peripheral vision, change in vision, double vision or loss of vision ENT ENT ED: Reports none; Denies ear pain, lip swelling, loss taste/smell, neck pain, otalgia or sore throat Cardiovascular Cardiovascular: Reports none; Denies abdominal pain, chest pain with activity, leg edema, lightheadedness, palpitations, rapid heart rate or syncope Respiratory/Chest Respiratory/Chest: Reports none and cough; Denies change in mental status, dry cough, dyspnea, hemoptysis, shortness of breath at rest or shortness of breath with exertion Gastrointestinal Gastrointestinal: Reports none; Denies abdominal pain, change in stool character, diarrhea, hematemesis, hematochezia, melena, rectal bleeding or vomiting Genitourinary Genitourinary ED: Reports none; Denies abdominal discomfort, anuria, dysuria, genital pain or polyuria Musculoskeletal Musculoskeletal: Reports none and myalgias; Denies arthralgias, back pain, difficulty walking, extremity pain or muscle weakness Integumentary Reports none; Denies abscess or rash Neurologic Neurologic: Reports none and headache(s); Denies abnormal gait, confusion, focal weakness, frequent falls, loss of vision, numbness, paresthesias, radicular pain, vertigo or weakness Psychiatric Psychiatric: Reports systems reviewed and no addt'l complaints, except as documented and none; Denies behavioral changes, confusion, difficulty concentrating, hallucinations, suicidal ideation, tactile hallucinations or visual hallucinations Endocrine Endocrinology: Denies none, cold intolerance, excessive sweating, fatigue or heat intolerance Hematologic/Lymphatic Hematologic/Lymphatic: Reports none; Denies anemia, easy bleeding or easy bruising Allergic/Immunologic Allergic/Immunologic ED: Denies as per HPI, none, lip swelling, mouth swelling, throat swelling, tongue swelling or hives EXAM Physical Exam Const Vital Signs: 03/01/21 15:59 03/01/21 16:20 Temperature 98.5 F Temperature Source Temporal Pulse Rate 107 H Respiratory Rate 16 Respiratory Effort Normal Non-Labored Respiratory Pattern Normal Blood Pressure 140/75 H Blood Pressure Mean 96 Pulse Ox 97 Oxygen Delivery Method Room Air Positive well nourished and well developed General Appearance ED: well developed and NAD HEENT Reports TM's clear and moist mucous membranes normocephalic and atraumatic; Negative for trauma or tenderness Tympanic Membrane ED: Yes TM's clear Eyes PERRL and EOMs intact bilaterally General Eye ED: Negative for pale conjunctiva or scleral icterus Neck no lymphadenopathy, supple and no JVD General: Negative for tenderness Chest Wall inspection of chest normal and palpation of chest normal Chest: Negative for tenderness Resp normal respiratory effort and clear to auscultation bilaterally Effort and Inspection: Negative for respiratory distress or pain with movement Auscultation: Negative for rhonchi, wheezes or diminished lung sounds Cardio regular rate, regular rhythm, S1 normal heart sound, S2 normal heart sound and no murmurs Peripheral Pulses: pulses 2+ throughout GI normal to inspection, nondistended, normoactive bowel sounds, soft to palpation, non-tender, non-distended and no masses Back/Spine no CVA tenderness and no thoracic nor lumbar tenderness Extremity normal to inspection General Extremety ED: Negative for edema General Extremity: Negative for edema Neuro oriented x3, CN's II-XII intact bilaterally, no sensory deficits noted and gait normal Sensorium / Orientation: awake, alert, oriented to person, oriented to place and oriented to time Motor Exam: strength 5/5 throughout and strength abnormal Psych mental status grossly normal Skin no rashes or lesions noted and no wounds MDM MDM MDM Narrative Medical decision making narrative: Patient positive for COVID-19. I will refer her for monoclonal antibody infusion as she would meet criteria due to BMI of 49. Patient advised to return if increasing shortness of breath or condition should worsen anyway. Lab Data Attestation: I reviewed the patient's lab results. Discharge Plan Triage Chief Complaint: Weakness ED Provider: Tara Lopez Dx/Rx/DC Orders Clinical Impression: COVID-19 Instructions: ED - COVID Monoclonal AB Infusion ..., Caring for Someone Who Has COVID-19 Prescriptions: No Action cyclobenzaprine 10 mg tablet 10 mg PO BID PRN (Reason: muscle spasm) Qty: 10 RF: 0 lidocaine [Lidoderm] 5 % adhesive patch,medicated 1 patch topical DAILY Qty: 6 RF: 0 amoxicillin 500 MG tablet 500 mg PO TID Qty: 30 RF: 0 Primary Care Provider: Arley Dominguez Referrals: Arley Dominguez MD [Primary Care Provider] - 5-7 Days Disposition Disposition: Home, Self Care
== END 2021-03-01 17:15 | disposition home or self-care (01) ==
PROVIDERS: Emergency Provider Emergency Medicine; PCP Family Medicine; Visit Provider Emergency Medicine
DX: U07.1 COVID-19 (principal)
CPT/HCPCS: 87426; 87804; 99282

== ENCOUNTER 2021-03-05 14:26 | Outpatient (CLI) | payer MEDICAID, SELFPAY ==
[2021-03-05 14:41] VITALS: BP 144/73; PULSE 66; RESP 16; TEMP 36.9; O2SAT 97; BMI 49.6
[2021-03-05] MEDS: 0.9% Saline Lock 10 ML Syringe IV (14:53)
[2021-03-05 15:23] VITALS: BP 143/82; PULSE 74; RESP 16; TEMP 36.4; O2SAT 99
[2021-03-05 16:08] VITALS: BP 138/72; PULSE 96; RESP 16; TEMP 37; O2SAT 98
== END 2021-03-05 23:59 | disposition home or self-care (01) ==
LOC: MS3OUT 14:27 → MS3 14:27
PROVIDERS: PCP Family Medicine; Referring Provider Emergency Medicine; Visit Provider Emergency Medicine
DX: U07.1 COVID-19 (principal)
CPT/HCPCS: J7050; M0245; Q0245; A4216

== ENCOUNTER 2021-05-19 19:02 | Emergency (ER) | payer MEDICAID, SELFPAY ==
[2021-05-19 19:03] VITALS: BP 127/89; PULSE 85; RESP 16; TEMP 36.6; O2SAT 97; BMI 44.2
--- NOTE | 2021-05-19 19:20 | RAD_ITS ---
EXAM: XR CHEST, 1 VIEW CLINICAL INDICATION: Stroke TECHNIQUE: Frontal view of the chest. This report was created using [employer] report generation technology. COMPARISON: 10.18.20 FINDINGS: LUNGS AND PLEURAL SPACES: Unremarkable. No consolidation or edema. No pneumothorax. No effusion. HEART: Unremarkable. Cardiac silhouette not enlarged. MEDIASTINUM: Central airways and mediastinal contour are unremarkable. BONES/JOINTS: Unremarkable. SOFT TISSUES: Unremarkable. RAD/Chest 1 View (Portable) IMPRESSION: No radiographic evidence of acute cardiopulmonary disease. Electronically Signed: Cuco Vasquez MD at 19:47 EDT ,
[2021-05-19 19:30] LABS: Absolute Lymphocyte Count 3.79 X10^3/uL (0.83-4.51); Absolute Neutrophil Count 5.2 X10^3/uL (2.0-7.7); Basophil# 0.08 X10^3/uL; Basophil% 0.8 % (0-1); Eosinophil# 0.51 X10^3/uL; Eosinophils% 4.9 % (0-5); Hematocrit 40.5 % (37-47); Hemoglobin 13.8 g/dL (12.0-15.0); Lymphocyte # 3.79 X10^3/ul (0.83-4.51); Lymphocyte % 36.7 % (19-41); Mean Corp Hgb Conc 34.1 g/dL (32-36); Mean Corpuscular Hgb 29.1 pg (27.0-32.0); Mean Corpuscular Volume 85.3 fL (81-99); Mean Platelet Vol. 11.1 fl (6.2-12.0); Monocyte# 0.72 X10^3/uL; NRBC Flagged by Analyzer 0 % (0-5); Neutrophil # 5.21 X10^3/uL (2.7-7.7); Neutrophil % 50.3 % (47-70); Platelet Count 357 K/mm3 (150-450); RBC Distribution Width CV 11.6 % (11.6-14.6); RBC Distribution Width SD 36.3 fl (35.1-43.9); Red Blood Count 4.75 M/mm3 (4.2-5.4); White Blood Count 10.3 K/mm3 (4.4-11.0)
[2021-05-19 19:58] LABS: Anion Gap 5 (5-15); BUN 15 mg/dL (7-18); BUN/Creat Ratio 15.4 RATIO (10-20); Calcium,Total 9.1 mg/dL (8.5-10.1); Chloride 109 mmol/L (98-107); Creatinine, Serum 0.98 mg/dL (0.55-1.02); EST Glomerular Filtration Rate 75 mL/min (>60); Est Glom Filt Rate - Afr Amer 90 mL/min (>60); Estimated Creatinine Clearance 73.85 ml/min; Glucose 108 mg/dL (74-106); Potassium 4.5 mmol/L (3.5-5.1); Sodium Level 139 mmol/L (136-145)
[2021-05-19 20:13] VITALS: O2SAT 100
[2021-05-19 20:14] VITALS: BP 165/119; PULSE 76; RESP 18; O2SAT 100
--- NOTE | 2021-05-19 22:01 | EDS_ITS ---
HPI History of Present Illness Chief Complaint: Seizure Informant: patient and parent Onset/Context/Timing Onset: Days Narrative Narrative: Patient presents for evaluation of increased frequency of seizures. I was asked to come to the patient's room for a seizure as she had started having seizure activity in triage. On my arrival to the room the patient is awake and answering questions appropriately. 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 These are usually brought on by anxiety and stress. Patient reportedly did recently start Effexor but family states they have noted increased frequency and seizures since that time. She has an appointment tomorrow morning to meet with her doctor regarding changing her medication. [facility] Medical History Anxiety Depression Migraine Seizure Home Medications venlafaxine [Effexor] 75 mg PO DAILY 05/19/21 [History Last Taken Unknown] Allergy/AdvReac Type Severity Reaction Status Date / Time dog dander Allergy Other Verified 05/19/21 19:05 grapefruit AdvReac Hives Verified 05/19/21 19:05 lorazepam [From Ativan] AdvReac Other Verified 05/19/21 19:05 Social History household members: family Smoking Status: Never smoker alcohol intake: never substance use type: does not use ROS ROS ED Constitutional Constitutional ED: Denies chills or fever(s) Eyes Eyes: Denies change in vision ENT ENT ED: Denies sore throat Cardiovascular Cardiovascular: Denies chest pain Respiratory/Chest Respiratory/Chest: Denies cough or dyspnea Gastrointestinal Gastrointestinal: Denies abdominal pain, nausea or vomiting Genitourinary Genitourinary ED: Denies dysuria Musculoskeletal Musculoskeletal: Denies back pain or neck pain Integumentary Denies rash Neurologic Neurologic: Denies headache(s), paresthesias or weakness Allergic/Immunologic Allergic/Immunologic ED: Denies urticaria EXAM Physical Exam Const Vital Signs: 05/19/21 19:03 05/19/21 20:13 05/19/21 20:14 Temperature 97.9 F Temperature Source Temporal Pulse Rate 85 76 Respiratory Rate 16 18 Blood Pressure 127/89 H 165/119 H Blood Pressure Mean 101 134 Pulse Ox 97 100 100 Oxygen Delivery Method Room Air Nasal Cannula Oxygen Flow Rate (L/min) 2 2 05/19/21 22:04 Temperature Temperature Source Pulse Rate 78 Respiratory Rate 19 H Blood Pressure 166/77 H Blood Pressure Mean 106 Pulse Ox 97 Oxygen Delivery Method Room Air Oxygen Flow Rate (L/min) Positive well nourished and well developed General Appearance ED: well developed HEENT Reports moist mucous membranes Eyes PERRL and EOMs intact bilaterally Neck supple Chest Wall inspection of chest normal and palpation of chest normal Resp normal respiratory effort and clear to auscultation bilaterally Cardio regular rate and regular rhythm GI normal to inspection, nondistended, normoactive bowel sounds and non-tender Palpation: soft Extremity normal to inspection Neuro oriented x3 and no sensory deficits noted Sensorium / Orientation: alert Motor Exam: strength 5/5 throughout Psych mental status grossly normal Skin no rashes or lesions noted MDM MDM MDM Narrative Medical decision making narrative: Lab work obtained. Chest x-ray obtained per nursing protocol. Lab Data Attestation: I reviewed the patient's lab results. Labs: Laboratory Results - last 24 hr 05/19/21 05/19/21 19:23 19:23 WBC 10.3 RBC 4.75 Hgb 13.8 Hct 40.5 MCV 85.3 MCH 29.1 MCHC 34.1 RDW Std Deviation 36.3 RDW Coeff of Khanh 11.6 Plt Count 357 MPV 11.1 Immature Gran % (Auto) 0.300 Neut % (Auto) 50.3 Lymph % (Auto) 36.7 [place] % (Auto) 7.0 Eos % (Auto) 4.9 Baso % (Auto) 0.8 Absolute Neuts (auto) 5.2 Absolute Lymphs (auto) 3.79 Nucleated RBC % 0 Sodium 139 Potassium 4.5 Chloride 109 H Carbon Dioxide 25.0 Anion Gap 5 BUN 15 Creatinine 0.98 Estim Creat Clear Calc 73.85 Est GFR (MDRD) Af Amer 90 Est GFR (MDRD) Non-Af 75 BUN/Creatinine Ratio 15.4 Glucose 108 H Calcium 9.1 Radiography Diagnostic Testing: Clinical Impression(s) from Imaging Studies Chest X-Ray 05/19/21 19:20 IMPRESSION: No radiographic evidence of acute cardiopulmonary disease. Electronically Signed: Cuco Vasquez MD at 19:47 EDT , Treatment and Re-Evaluation Narrative: Patient has a known history of nonepileptiform seizures. Lab work is unremarkable. Chest x-ray per my interpretation reveals no acute abnormalities. While in the treatment room patient has had no further seizure activity. Patient has an appointment with her doctor tomorrow morning at 8:00. I did advise the patient that Effexor can potentially increase his seizures although with her having not epileptiform seizures and not sure if this played a role. Discharge Plan Triage Chief Complaint: Seizure ED Provider: Vidya Mcdermott Dx/Rx/DC Orders Clinical Impression: Convulsion, non-epileptic Instructions: ED Seizure, Recurrent (Adult) Prescriptions: No Action venlafaxine [Effexor] 75 mg Tablet 75 mg PO DAILY RF: 0 Primary Care Provider: Arley Dominguez Referrals: Arley Dominguez MD [Primary Care Provider] - Keep Xiomara appointment Disposition Disposition: Home, Self Care Discharge Date/Time: 05/19/21 22:08
[2021-05-19 22:04] VITALS: BP 166/77; PULSE 78; RESP 19; O2SAT 97
== END 2021-05-19 22:08 | disposition home or self-care (01) ==
PROVIDERS: Emergency Provider Emergency Medicine; PCP Family Medicine; Visit Provider Emergency Medicine
DX: R56.9 Unspecified convulsions (principal); F32.A Depression, unspecified; F41.9 Anxiety disorder, unspecified; Z79.899 Other long term (current) drug therapy
CPT/HCPCS: 71045; 80048; 85025; 99283; A4216

== ENCOUNTER 2021-06-23 07:27 | Emergency (ER) | payer MEDICAID, SELFPAY ==
[2021-06-23 07:28] VITALS: BP 127/70; PULSE 83; RESP 14; TEMP 36.8; O2SAT 98; BMI 47.8
--- NOTE | 2021-06-23 07:56 | RAD_ITS ---
STUDY: X-RAY - LEFT ANKLE REASON FOR EXAM: Female, 25 years old. Ankle pain TECHNIQUE: 3 view(s) of the ankle. COMPARISON: None. FINDINGS: Normal visualized distal tibia and fibula. Normal medial and lateral malleoli. Normal tibiotalar articulation and ankle mortise. Small spur at the insertion of the Achilles tendon. Findings suggestive of a nondisplaced avulsion fracture of the tarsal navicular bone along the dorsal posterior aspect. The visualized subtalar, talonavicular, calcaneocuboid and tarsal articulations are normal. The soft tissue structures are unremarkable. RAD/Ankle min 3 Views IMPRESSION: Findings suggestive of a nondisplaced avulsion type fracture of the tarsal navicular bone along its dorsal posterior aspect. Electronically Signed: Og Govea MD at 8:43 EDT ,
--- NOTE | 2021-06-23 07:56 | RAD_ITS ---
STUDY: X-RAY - LEFT FOOT CLINICAL: Female, 25 years old. Foot pain following a tripping injury. TECHNIQUE: 3 view(s) of the foot. COMPARISON: None. FINDINGS: Findings suggestive of a nondisplaced avulsion fracture of the superior posterior aspect of the tarsal navicular bone. Normal visualized subtalar, talonavicular, calcaneocuboid, tarsal and tarsometatarsal articulations. Normal metatarsi. Normal metatarsophalangeal joint of the great toe. Normal tibial and fibular sesamoid bones. Normal interphalangeal joint of the great toe. Normal phalanges of the great toe. Normal second through fifth metatarsophalangeal joints. Normal interphalangeal joints and phalanges of the lesser toes. Soft tissue swelling RAD/Foot min 3 Views IMPRESSION: Findings suggestive of a nondisplaced avulsion fracture of the superior posterior aspect of the tarsonavicular bone Electronically Signed: Og Govea MD at 8:42 EDT ,
--- NOTE | 2021-06-23 07:57 | EDS_ITS ---
HPI History of Present Illness Chief Complaint: Seizure Narrative Narrative: 35-year-old female with history of nonepileptic seizures presents after having an seizure episode on the stairs this morning. She reports that her ankle was injured. Her boyfriend thought twisted on the stairs. She has no complaints currently. She states she was recently weaned off of her previous seizure medication as her seizures are stress-induced. Patient's main concern for this visit is the left ankle and foot pain. She has not taken anything prior to arrival. She does not have a headache, blurred vision, slurred speech. She states she was able to ambulate with antalgic gait. She states that she needs a work note because she was late for work this morning. [facility] Medical History Anxiety Depression Migraine Seizure Home Medications NK 06/23/21 [History Last Taken Unknown] Allergy/AdvReac Type Severity Reaction Status Date / Time dog dander Allergy Other Verified 06/23/21 07:28 grapefruit AdvReac Hives Verified 06/23/21 07:28 lorazepam [From Ativan] AdvReac Other Verified 06/23/21 07:28 Social History household members: family Smoking Status: Never smoker alcohol intake: never substance use type: does not use ROS ROS ED Review of Systems ROS Unobtainable: Denies due to encephalopathy Constitutional Constitutional ED: Denies fever(s) or subjective Eyes Eyes: Denies blurry vision ENT ENT ED: Denies rhinorrhea or sore throat Cardiovascular Cardiovascular: Denies chest pain or palpitations Respiratory/Chest Respiratory/Chest: Denies cough or dyspnea Gastrointestinal Gastrointestinal: Denies abdominal pain or nausea Genitourinary Genitourinary ED: Denies dysuria or hematuria Musculoskeletal Musculoskeletal: Reports other Details: Left ankle pain, left foot pain Integumentary Denies abscess or rash Neurologic Neurologic: Denies headache(s) or weakness Psychiatric Psychiatric: Denies anxiety or depression EXAM Physical Exam Const Vital Signs: 06/23/21 07:28 Temperature 98.2 F Temperature Source Temporal Pulse Rate 83 Respiratory Rate 14 Blood Pressure 127/70 H Blood Pressure Mean 89 Pulse Ox 98 Oxygen Delivery Method Room Air Negative for well nourished General Appearance ED: Negative for NAD HEENT Negative for normocephalic or atraumatic Eyes Negative for PERRL Resp normal respiratory effort and clear to auscultation bilaterally Cardio regular rate and regular rhythm GI Palpation: soft Extremity Extremity Narrative: Tenderness to palpation over left lateral malleolus and left medial malleolus. No obvious deformity. No swelling. No ecchymosis. Tenderness palpation of the left foot over the base of the left fifth metatarsal. No navicular pain. Left foot neurovascular intact brisk cap refill to all 5 toes Neuro oriented x3 Sensorium / Orientation: alert MDM MDM MDM Narrative Medical decision making narrative: 24-year-old female presenting with left ankle pain and left foot pain. She states she had a nonepileptic seizure today on the stairs. She denies other symptoms at this time. I did order x-rays of the left foot and ankle. When attempting to order ibuprofen there was a warning that she is in precautions. I went to speak with the patient in the room and she states she has had 2 negative test. I offered to test her for and she declines and states I am good. She wishes to have ibuprofen in the emergency room. I did offer her Tylenol. X-rays of the left foot and ankle show a nondisplaced avulsion fracture of the tarsal/navicular bone on my interpretation. Radiologist does agree. I discussed this with Dr. Davey who is on-call for podiatry and he agrees with this assessment as well. He recommends a walking boot without crutches. Patient to use anti-inflammatories for pain. He states he can follow-up with her in the office tomorrow. She will require work note for today and tomorrow to get to this appointment and to be off today. She will be able to return to work with restrictions as she normally would have to wear a steel toe boot because she works at a [employer]. Patient states she can do light duty there. Impression: 1. History of nonepileptic seizures 2. Fall 3. Nondisplaced avulsion fracture left tarsal/navicular bone 4. Left ankle sprain Radiography Diagnostic Testing: Clinical Impression(s) from Imaging Studies Ankle X-Ray 06/23/21 07:56 IMPRESSION: Findings suggestive of a nondisplaced avulsion type fracture of the tarsal navicular bone along its dorsal posterior aspect. Electronically Signed: Og Govea MD at 8:43 EDT , Foot X-Ray 06/23/21 07:56 IMPRESSION: Findings suggestive of a nondisplaced avulsion fracture of the superior posterior aspect of the tarsonavicular bone Electronically Signed: gO Govea MD at 8:42 EDT , Discharge Plan Triage Chief Complaint: Seizure ED Provider: Shiva Foote Dx/Rx/DC Orders Instructions: ED Fracture, Foot Prescriptions: No Action NK RF: 0 Primary Care Provider: Arley Dominguez Referrals: Arley Dominguez MD [Primary Care Provider] - Douglas Davey DPM [STAFF PHYSICIAN] - 1 Day Disposition Disposition: Home, Self Care
[2021-06-23] MEDS: Ibuprofen 600 MG Tablet PO (08:26)
[2021-06-23 09:38] VITALS: RESP 16
== END 2021-06-23 09:39 | disposition home or self-care (01) ==
PROVIDERS: Emergency Provider Student in an Organized Health Care Education/Training Program; PCP Family Medicine; Visit Provider Student in an Organized Health Care Education/Training Program
DX: R56.9 Unspecified convulsions (principal); S93.402A Sprain of unspecified ligament of left ankle, initial encounter; S92.255A Nondisplaced fracture of navicular [scaphoid] of left foot, initial encounter for closed fracture; Y93.9 Activity, unspecified; Y99.9 Unspecified external cause status; W19.XXXA Unspecified fall, initial encounter; Y92.9 Unspecified place or not applicable
CPT/HCPCS: 73610; 73630; 99283

== ENCOUNTER 2021-07-27 22:18 | Emergency (ER) | payer MEDICAID, SELFPAY ==
[2021-07-27 22:19] VITALS: BP 152/80; PULSE 99; RESP 18; TEMP 36.6; O2SAT 99; BMI 48.6
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
[2021-07-27 23:33] VITALS: BP 132/80; PULSE 81; RESP 16; O2SAT 97
== END 2021-07-27 23:35 | disposition home or self-care (01) ==
PROVIDERS: Emergency Provider Emergency Medicine; PCP Family Medicine; Visit Provider Emergency Medicine
DX: S06.0X9A Concussion with loss of consciousness of unspecified duration, initial encounter (principal); Z68.42 Body mass index [BMI] 45.0-49.9, adult; S46.812A Strain of other muscles, fascia and tendons at shoulder and upper arm level, left arm, initial encounter; V47.1XXA Car passenger injured in collision with fixed or stationary object in nontraffic accident, initial encounter; Y93.89 Activity, other specified; E66.9 Obesity, unspecified
CPT/HCPCS: 70450; 99282

== ENCOUNTER 2021-09-22 22:13 | Emergency (ER) | payer MEDICAID, SELFPAY ==
[2021-09-22 22:14] VITALS: BP 139/79; PULSE 92; RESP 16; TEMP 36.2; O2SAT 98; BMI 45.4
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
[2021-09-22] MEDS: Ibuprofen 400 MG Tablet 800 MG PO (22:29)
== END 2021-09-22 23:08 | disposition home or self-care (01) ==
PROVIDERS: Emergency Provider Emergency Medicine; PCP Family Medicine; Visit Provider Emergency Medicine
DX: S93.401A Sprain of unspecified ligament of right ankle, initial encounter (principal); W22.8XXA Striking against or struck by other objects, initial encounter
CPT/HCPCS: 73610; 99282

== ENCOUNTER 2022-02-20 22:20 | Emergency (ER) | payer MEDICAID, SELFPAY ==
[2022-02-20 22:20] VITALS: BP 141/86; PULSE 84; RESP 16; TEMP 36.6; O2SAT 97; BMI 42.9
--- NOTE | 2022-02-20 22:55 | EDS_ITS ---
HPI HPI - URI History of Present Illness Chief Complaint: Cold Sx Detail of Chief Complaint: Cough and sore throat for 4 days starting on 's Kena. Informant: patient Onset/Context/Timing Onset: Days Context: Gradual Onset Timing: Continuous Current Severity: Mild Maximum Severity: Mild Associated Symptoms Associated Symptoms: Positive for Nasal Congestion and Nonproductive cough; Negative for Diarrhea or Shortness of Breath Narrative Narrative: 26-year-old female history of nonepileptic seizures and anxiety. Has had a cough and sore throat for the last 4 days beginning on 's Kena. Was recently at a [employer] party with multiple people had COVID. She denies vomiting or diarrhea except after coughing she had an episode of vomiting. No shortness of breath. Nonproductive cough. Prior similar symptoms: Yes Recent Illness/Hospitalization: No ROS ROS ED ROS Narrative Cough. Review of Systems ROS Unobtainable: Denies due to encephalopathy Constitutional Constitutional ED: Denies chills or headache(s) Eyes Eyes: Denies blind spots ENT ENT ED: Denies change in voice Cardiovascular Cardiovascular: Denies abdominal pain Respiratory/Chest Respiratory/Chest: Reports cough; Denies chest congestion Gastrointestinal Gastrointestinal: Denies diarrhea Genitourinary Genitourinary ED: Denies low back pain Integumentary Denies change in hair Neurologic Neurologic: Denies focal weakness Psychiatric Psychiatric: Denies confusion Endocrine Endocrinology: Denies deepening of the voice Allergic/Immunologic Allergic/Immunologic ED: Denies lip swelling or mouth swelling [facility] Medical History Anxiety Depression Migraine Seizure Home Medications NK 06/23/21 [History Last Taken Unknown] Allergy/AdvReac Type Severity Reaction Status Date / Time dog dander Allergy Other Verified 02/20/22 22:22 grapefruit AdvReac Hives Verified 02/20/22 22:22 lorazepam [From Ativan] AdvReac Other Verified 02/20/22 22:22 Social History household members: family Smoking Status: Never smoker alcohol intake: never substance use type: does not use EXAM Physical Exam Narrative Exam Narrative: 26-year-old female no acute distress. Vital signs stable afebrile. Pulse ox 97% on room air no hypoxia. H EENT exam normal. TMs normal. Posterior pharynx normal. Moist mucous membranes. No erythema or exudate. No trouble swallowing or breathing. No stridor or drooling. Neck nontender no lymphadenopathy. Lungs clear to auscultation bilaterally. Heart regular rate and rhythm rate about 85 no murmur. Abdomen soft nontender. Moving all 4 extremities. Calves nontender without edema or cords. Neurologic exam normal. Normal benign exam. Const Vital Signs: 02/20/22 22:20 Temperature 97.8 F Temperature Source Temporal Pulse Rate 84 Respiratory Rate 16 Blood Pressure 141/86 H Blood Pressure Mean 104 Pulse Ox 97 Oxygen Delivery Method Room Air Positive well nourished, well developed, obese, alert, oriented x3, no apparent distress, average body habitus, no limitations and healthy appearing; Negative for cachectic, contractures or unkempt General Appearance ED: active, cooperative, comfortable, well kempt and well developed; Negative for unkempt, cachectic or contractures Nutritional Appearance: obese; Negative for cachectic HEENT Reports normocephalic, head/scalp atraumatic, hearing grossly normal bilaterally and TM's clear normocephalic, normal to inspection and atraumatic; Negative for trauma Face and Sinus: normal facial exam Nose: external nose normal External Ear: external ears normal Tympanic Membrane ED: Yes TM's clear Mouth ED: Yes oral and palatal mucosa normal Mouth: oral and palatal mucosa normal Throat: posterior oropharynx normal Eyes PERRL, EOMs intact bilaterally, conjunctivae normal and no scleral icterus General Eye ED: Yes normal appearance of both eyes Neck full ROM, No nuchal rigidity, no lymphadenopathy, supple, no meningeal signs and no JVD General: normal visual inspection Chest Wall inspection of chest normal and palpation of chest normal Resp normal respiratory effort, normal air movement, no retractions, no use of accessory muscles and clear to auscultation bilaterally Auscultation: clear to auscultation bilaterally Cardio regular rate, regular rhythm, S1 normal heart sound, S2 normal heart sound, no murmurs, no rub, no gallops, no clicks and no JVD; Negative for diaphoretic Jugular Venous Distention: Negative for JVD Rate: regular rate Rhythm: regular rhythm GI normal to inspection, nondistended, normoactive bowel sounds, soft to palpation, non-tender, non-distended and no masses Auscultation: normoactive bowel sounds Palpation: soft; Negative for firm or tender Back/Spine no CVA tenderness, normal ROM, normal to inspection, thoracic and lumbar spine normal to inspection and no thoracic nor lumbar tenderness General Back: Negative for CVA tenderness Extremity normal to inspection, full ROM, no joint enlargement, no clubbing, cyanosis or edema, no calf tenderness and no pedal edema General Extremety ED: Yes normal exam except as noted General Extremity: normal exam except as noted Neuro oriented x3, CN's II-XII intact bilaterally, moves all extremities and no focal motor deficits Sensorium / Orientation: awake, alert, oriented to person, oriented to place and oriented to time; Negative for orientation impaired, confused or lethargic Motor Exam: strength 5/5 throughout Psych mental status grossly normal, thought process normal, cooperative, affect normal, speech normal and activity/motor behavior normal Appearance: grossly normal; Negative for unkempt Attitude: calm, engaged, No paranoid, No withdrawn, No bizarre and No uncooperative Activity / Motor Behavior: appropriate eye contact Speech: normal speech, No incoherent, No excessive and No minimal Mood & Affect: euthymic mood Thought Content: normal thought content Skin no rashes or lesions noted and no wounds General Skin Exam: no breakdown Lesions: no lesions Rashes: no rashes MDM MDM MDM Narrative Medical decision making narrative: 26-year-old female URI symptoms suspect viral. She requested to be tested for both COVID and influenza which were doing. Her exam is benign. She has no signs of pneumonia. She does not need any imaging. She does not need any labs. I explained to her and family even if she is COVID or influenza positive it would not change my treatment plan. Reviewed exam unchanged. Patient was informed that she was COVID-positive. Quarantine for 5 days. Follow-up if not proving. Her symptoms are very mild I do not think she needs any specific therapy other than symptom control. Lab Data Attestation: I reviewed the patient's lab results. Lab results narrative: Influenza negative. Rapid COVID-positive. Discharge Plan Triage Chief Complaint: Cold Sx ED Provider: Ervin Burton Dx/Rx/DC Orders Clinical Impression: COVID-19 Instructions: Human Coronaviruses Prescriptions: No Action NK Primary Care Provider: Arley Dominguez Referrals: Arley Dominguez MD [Primary Care Provider] - 1 Week if not improving Activity Restrictions/Additional Instructions: Plenty of fluids and rest. Warm salt water gargling. Chloraseptic spray. Tylenol and Motrin for sore throat and body aches. You are COVID-positive. Quarantine for the next 5 days. Follow-up with your doctor if not improving. Disposition Disposition: Home, Self Care
[2022-02-21 00:27] VITALS: O2SAT 99
== END 2022-02-21 00:37 | disposition home or self-care (01) ==
PROVIDERS: Emergency Provider Emergency Medicine; PCP Family Medicine; Visit Provider Emergency Medicine
DX: U07.1 COVID-19 (principal); E66.9 Obesity, unspecified
CPT/HCPCS: 87428; 99282

== ENCOUNTER 2022-05-31 21:00 | Emergency (ER) | payer MEDICAID, SELFPAY ==
[2022-05-31 21:02] VITALS: BP 132/87; PULSE 90; RESP 18; TEMP 36.6; O2SAT 99; BMI 44.9
--- NOTE | 2022-05-31 21:20 | RAD_ITS ---
INDICATION: Injury/Pain EXAMINATION/TECHNIQUE: X-RAY - LEFT XR Ankle Min 3 Views 3 VIEWS COMPARISON: 06/23/2021 FINDINGS: SOFT TISSUES: No soft tissue swelling or gas. No radiopaque foreign body. BONES/JOINTS: No acute fracture or subluxation. Normal ankle mortise and subtalar joint. No sclerotic or destructive changes observed. RAD/Ankle min 3 Views IMPRESSION: Negative. Electronically Signed: Darshan Marie MD at 21:48 EDT ,
--- NOTE | 2022-05-31 22:37 | EDS_ITS ---
HPI History of Present Illness HPI Narrative: Patient presents with left ankle injury that occurred today. Patient states she missed a step and fell down approximately 6-7 steps. Patient denies any loss of consciousness. Patient states she did hit her head. Patient admits to some tingling in her toes. Patient states her pain is sharp. Patient states it is localized to the left ankle. Patient states her pain is worse with any movement or weightbearing. Patient states nothing seems to help with the pain. Chief Complaint: Lower Extremity Injury Informant: patient Onset/Context/Timing Onset: Today Context: Sudden Onset Timing: Continuous Quality of Pain: Sharp Location: Left ankle Worsened by: Movement, weightbearing Relieved by: Nothing Associated Symptoms Associated Symptoms: Positive for Parasthesia; Negative for Weakness or Loss of Funtion PFSH PFS Medical History (Updated 05/31/22 @ 22:[address] Romain May DO) Anxiety Depression Migraine Seizure Home Medications NK 06/23/21 [History Last Taken Unknown] Allergy/AdvReac Type Severity Reaction Status Date / Time dog dander Allergy Other Verified 05/31/22 21:04 grapefruit AdvReac Hives Verified 05/31/22 21:04 lorazepam [From Ativan] AdvReac Other Verified 05/31/22 21:04 Surgical History (Updated 05/31/22 @ 22:[address] Romain May DO) History of ear surgery Social History household members: family Smoking Status: Never smoker alcohol intake: never substance use type: does not use ROS ROS ED Constitutional Constitutional ED: Denies chills or fever(s) Eyes Eyes: Denies blurry vision or change in vision ENT ENT ED: Denies rhinorrhea or sore throat Cardiovascular Cardiovascular: Denies chest pain or palpitations Respiratory/Chest Respiratory/Chest: Reports cough; Denies dyspnea Gastrointestinal Gastrointestinal: Denies nausea or vomiting Genitourinary Genitourinary ED: Denies dysuria or hematuria Musculoskeletal Musculoskeletal: Denies back pain or neck pain Integumentary Denies abscess or rash Neurologic Neurologic: Denies headache(s) or weakness Allergic/Immunologic Allergic/Immunologic ED: Denies mouth swelling or urticaria EXAM Physical Exam Const Vital Signs: 05/31/22 21:02 Temperature 97.9 F Temperature Source Temporal Pulse Rate 90 Respiratory Rate 18 Blood Pressure 132/87 H Blood Pressure Mean 102 Pulse Ox 99 Oxygen Delivery Method Room Air Positive well nourished, well developed and unkempt General Appearance ED: unkempt, well developed and NAD HEENT Reports moist mucous membranes Neck full ROM and supple Extremity Extremity Narrative: There is tenderness and mild edema over the left ankle. There is no obvious deformity noted. There is no tenderness over the proximal fibula. There is no tenderness over the fifth metatarsal. There is no ecchymosis noted. Range of motion was limited in all motions of the left ankle secondary to pain. Sensation was intact to light touch in all digits. Capillary refills less than 2 seconds in all digits. Pedal pulses are equal bilaterally. Neuro oriented x3, CN's II-XII intact bilaterally, moves all extremities and no sensory deficits noted Sensorium / Orientation: alert Motor Exam: strength 5/5 throughout Psych mental status grossly normal Appearance: unkempt MDM MDM MDM Narrative Medical decision making narrative: Differential diagnosis includes sprain and fracture of the ankle. X-rays of the left ankle will be obtained to assess for fracture. Radiography Diagnostic Testing: Clinical Impression(s) from Imaging Studies Ankle X-Ray 05/31/22 21:20 IMPRESSION: Negative. Electronically Signed: Darshan Marie MD at 21:48 EDT , X-rays of the left ankle were obtained. There are 3 views. On my independent interpretation, there is no acute fracture. There is no soft tissue swelling. Radiologist also interpreted the x-rays and agrees. Treatment and Re-Evaluation Narrative: Patient was advised of her findings. Patient was given an Aircast. Patient was instructed to ice and elevate the left ankle. Patient was instructed to follow- up with her primary care physician in 5 to 7 days. Patient understood and was agreeable with the plan. All questions were answered. Discharge Plan Triage Chief Complaint: Lower Extremity Injury ED Provider: Romain May Dx/Rx/DC Orders Clinical Impression: Ankle sprain, Fall Instructions: ED Ankle Sprain (Adult) Prescriptions: No Action NK Primary Care Provider: Arley Dominguez Referrals: Arley Dominguez MD [Primary Care Provider] - 5-7 Days Disposition Disposition: Home, Self Care
[2022-05-31 22:53] VITALS: BP 124/63; PULSE 57; RESP 14; O2SAT 98
== END 2022-05-31 22:54 | disposition home or self-care (01) ==
PROVIDERS: Emergency Provider Emergency Medicine; PCP Family Medicine; Visit Provider Emergency Medicine
DX: S93.402A Sprain of unspecified ligament of left ankle, initial encounter (principal); W19.XXXA Unspecified fall, initial encounter
CPT/HCPCS: 73610; 99283

== ENCOUNTER 2022-06-17 20:08 | Emergency (ER) | payer MEDICAID, SELFPAY ==
[2022-06-17 20:08] VITALS: BP 141/70; PULSE 79; RESP 15; TEMP 36.1; O2SAT 98; BMI 40.6
--- NOTE | 2022-06-17 20:33 | EDS_ITS ---
HPI <PILI Lopez - Last Filed: 06/17/22 21:46> History of Present Illness Chief Complaint: Nausea/Vomiting Narrative Narrative: Patient is a 26-year-old female with history of stress seizures who does not take any medications presents to the emergency department with nausea and vomiting for 2 days. Patient states last evening, she had some lower abdominal pain, developed nausea and vomiting. Patient also had a couple episodes of diarrhea. Today, the patient was feeling better, she went to [employer] today and then felt gaggy all day. Patient denies any fever or chills. Patient states she feels slightly dehydrated and is here for evaluation. PFSH <PILI Lopez - Last Filed: 06/17/22 21:46> [facility] Medical History (Updated 06/17/22 @ 21:43 by PILI Lopez) Anxiety Depression Migraine Seizure Home Medications dicyclomine 20 mg tablet 20 mg PO TID #14 tabs 06/17/22 [Rx Last Taken Unknown] ondansetron 4 mg disintegrating tablet 4 mg PO Q8H PRN PRN Nausea #10 tabs 06/17/22 [Rx Last Taken Unknown] Allergy/AdvReac Type Severity Reaction Status Date / Time dog dander Allergy Other Verified 06/17/22 20:10 grapefruit AdvReac Hives Verified 06/17/22 20:10 lorazepam [From Ativan] AdvReac Other Verified 06/17/22 20:10 Surgical History (Updated 05/31/22 @ 22:[address] Romain May, ) History of ear surgery Social History household members: family Smoking Status: Never smoker alcohol intake: never substance use type: does not use ROS <PILI Lopez - Last Filed: 06/17/22 21:46> ROS ED ROS Narrative Constitutional: Negative for fever, chills, weight loss, weakness Eyes: Negative for vision loss, vision change, double vision ENT: Negative for any sore throat, ear pain, congestion Cardiovascular: Negative for any chest pain, tightness, palpitations Respiratory: Negative for any cough, sputum production, hemoptysis, dyspnea, dyspnea on exertion, orthopnea Gastrointestinal: Negative for any diarrhea, constipation, blood in stool, blood in vomit. Positive for abdominal pain, nausea and : Negative for any urinary frequency, dysuria, retention, blood in urine Muscle skeletal: Negative for any muscle joint pain, stiffness, myalgias, arthralgias, neck pain, back pain Neurological: Negative for any headache, syncope, numbness or tingling, dizziness Skin: Negative for any rashes, lumps, itching, abrasions, lacerations Psychiatric: Negative for any depression, anxiety, stress, suicidal ideation, homicidal ideation Hematologic: Negative for any easy bruising, excessive bruising, easy bleeding Allergies: Negative for any eczema, hives, rash EXAM <PILI Lopez - Last Filed: 06/17/22 21:46> Physical Exam Narrative Exam Narrative: Vital signs reviewed. Patient appears generally well was in no distress. HEET: Head normocephalic atraumatic, TMs clear bilaterally. Posterior pharynx is clear, moist mucous membranes. Nares clear bilaterally. Neck: Supple with no lymphadenopathy or tenderness. No signs of meningismus, negative jolt sign. Cardiac: Regular rate and rhythm no murmurs gallops or rubs, equal peripheral pulses bilaterally. Respiratory: Lungs clear to auscultation bilaterally. No chest tenderness. Abdomen: Soft, nontender, nondistended. No abdominal bruit or pulsatile masses. No hepatosplenomegaly Extremities: No peripheral edema, no signs of gross trauma or deformity. Active full range of motion of all extremities. Neuro: Cranial nerves II through XII intact, no focal neurological deficits. Skin: Clean dry and intact with no rash, purpura, petechiae, vesicles or pustules. Backs/flank: No CVA tenderness, no midline spinal tenderness, no deformity. Psych: Normal mood and affect. No SI, HI or acute psychosis. Const Vital Signs: 06/17/22 20:08 Temperature 96.9 F L Temperature Source Temporal Pulse Rate 79 Respiratory Rate 15 Blood Pressure 141/70 H Blood Pressure Mean 93 Pulse Ox 98 Oxygen Delivery Method Room Air <Dr. Arnulfo Lemon MD - Last Filed: 06/17/22 21:23> Physical Exam Const Vital Signs: 06/17/22 20:08 Temperature 96.9 F L Temperature Source Temporal Pulse Rate 79 Respiratory Rate 15 Blood Pressure 141/70 H Blood Pressure Mean 93 Pulse Ox 98 Oxygen Delivery Method Room Air MDM <Darshan Jacinto NP-C - Last Filed: 06/17/22 21:46> [facility] Lab Data Labs: Laboratory Results - last 24 hr 06/17/22 06/17/22 06/17/22 20:53 20:53 20:53 WBC 13.6 H RBC 4.66 Hgb 13.7 Hct 42.7 MCV 91.6 MCH 29.4 MCHC 32.1 RDW Std Deviation 41.4 RDW Coeff of Khanh 12.4 Plt Count 327 MPV 11.2 Immature Gran % (Auto) 0.200 Neut % (Auto) 62.2 Lymph % (Auto) 26.9 Polk % (Auto) 5.4 Eos % (Auto) 4.6 Baso % (Auto) 0.7 Absolute Neuts (auto) 8.5 H Absolute Lymphs (auto) 3.66 Nucleated RBC % 0 Sodium 136 Potassium 3.7 Chloride 107 Carbon Dioxide 26.0 Anion Gap 3 L BUN 18 Creatinine 0.84 Estim Creat Clear Calc 92.93 Est GFR (MDRD) Af Amer 107 Est GFR (MDRD) Non-Af 88 BUN/Creatinine Ratio 21.5 H Glucose 100 Calcium 9.0 Urine Color Yellow Urine Clarity Clear Urine pH 5.0 Ur Specific [place] 1.025 Urine Protein 15 H Urine Glucose (UA) Normal Urine Ketones Negative Urine Occult Blood Negative Urine Nitrite Negative Urine Bilirubin Negative Urine Urobilinogen Normal Ur Leukocyte Esterase 25 H Urine RBC 0 SEEN Urine WBC 0-5 SEEN Ur Squamous Epith Cells 0-5 SEEN Urine Bacteria RARE Urine Mucus 0 SEEN Urine Test Negative Treatment and Re-Evaluation :: Patient appears well, patient appears nontoxic, vital signs are stable. Patient presents the emergency department for nausea and vomiting, lower abdominal pain for 2 days. Patient will receive IV fluids, IV Zofran. Patient will receive a urinalysis as well as urinalysis . Laboratory studies. Patient appears generally well, patient appears nontoxic, vital signs are stable. Patient presents to the emergency department with lower abdominal cramping, nausea and vomiting for 1 day. Patient's physical examination was consistent with more gastroenteritis. Differential diagnosis includes bowel obstruction, ovarian cyst, appendicitis. Studies to consider would be a CT scan of the abdomen pelvis. The physical examination was benign, patient had a soft, nontender abdomen. Patient's laboratory values showed slight leukocytosis with white blood count of 13.6, this could be secondary to the patient's gastritis yesterday. Patient's chemistries were unremarkable, urinalysis was negative for infection, patient is not . Patient have relief of symptoms with IV fluids, IV Zofran. She will be given Zofran, Bentyl for home. She will also receive a work note. I spoke with the patient, the patient's mom, all questions answered, return precautions given <Dr. Arnulfo Lemon MD - Last Filed: 06/17/22 21:23> [facility] Lab Data Attestation: I reviewed the patient's lab results. Labs: Laboratory Results - last 24 hr 06/17/22 06/17/22 06/17/22 20:53 20:53 20:53 WBC 13.6 H RBC 4.66 Hgb 13.7 Hct 42.7 MCV 91.6 MCH 29.4 MCHC 32.1 RDW Std Deviation 41.4 RDW Coeff of Khanh 12.4 Plt Count 327 MPV 11.2 Immature Gran % (Auto) 0.200 Neut % (Auto) 62.2 Lymph % (Auto) 26.9 [place] % (Auto) 5.4 Eos % (Auto) 4.6 Baso % (Auto) 0.7 Absolute Neuts (auto) 8.5 H Absolute Lymphs (auto) 3.66 Nucleated RBC % 0 Sodium 136 Potassium 3.7 Chloride 107 Carbon Dioxide 26.0 Anion Gap 3 L BUN 18 Creatinine 0.84 Estim Creat Clear Calc 92.93 Est GFR (MDRD) Af Amer 107 Est GFR (MDRD) Non-Af 88 BUN/Creatinine Ratio 21.5 H Glucose 100 Calcium 9.0 Urine Color Yellow Urine Clarity Clear Urine pH 5.0 Ur Specific [place] 1.025 Urine Protein 15 H Urine Glucose (UA) Normal Urine Ketones Negative Urine Occult Blood Negative Urine Nitrite Negative Urine Bilirubin Negative Urine Urobilinogen Normal Ur Leukocyte Esterase 25 H Urine RBC 0 SEEN Urine WBC 0-5 SEEN Ur Squamous Epith Cells 0-5 SEEN Urine Bacteria RARE Urine Mucus 0 SEEN Urine Test Negative Treatment and Re-Evaluation Comments:: Seen and evaluated independently and in conjunction with nurse practitioner. Agree with notes above unless documented otherwise. Patient with vomiting and mild diarrhea nonbloody today. No fevers. Some lower abdominal sharp pains bilaterally. She was around a client lately with diarrhea. No recent travel out of the area, suspicious food intake such as undercooked meats or raw fish, and no recent antibiotics. Suspect viral gastroenteritis, we performed labs, her abdomen is very benign. Labs are unremarkable. negative. Supportive care she is asking for a work note for the next day which is reasonable. Will prescribe Zofran she is feeling much better after that and IV fluids. Discharge Plan Triage Chief Complaint: Nausea/Vomiting ED Midlevel Provider: Darshan Jacinto ED Provider: Arnulfo Lemon Dx/Rx/DC Orders Clinical Impression: Gastroenteritis Instructions: ED Gastritis (Adult) Prescriptions: New ondansetron 4 mg tablet,disintegrating 4 mg PO Q8H PRN PRN (Reason: Nausea) Qty: 10 0RF dicyclomine 20 mg tablet 20 mg PO TID Qty: 14 0RF Stand Alone Forms: ED Work / School Excuse Primary Care Provider: Arley Dominguez Referrals: Arley Dominguez MD [Primary Care Provider] - Activity Restrictions/Additional Instructions: Advance your diet as tolerated. Disposition Disposition: Home, Self Care
[2022-06-17] MEDS: 0.9% Normal Saline 1,000 ML 1000 ML IV (20:57)
[2022-06-17] MEDS: Ondansetron 4 MG/2 ML Vial IV (20:58)
[2022-06-17 21:00] LABS: Mucous, Urine 0 SEEN /hpf (<or=2+); Red Blood Cells-Urine 0 SEEN /hpf (0-5)
[2022-06-17 21:01] LABS: Absolute Lymphocyte Count 3.66 X10^3/uL (0.83-4.51); Absolute Neutrophil Count 8.5 X10^3/uL (2.0-7.7); Basophil# 0.09 X10^3/uL; Basophil% 0.7 % (0-1); Eosinophil# 0.62 X10^3/uL; Eosinophils% 4.6 % (0-5); Hematocrit 42.7 % (37-47); Hemoglobin 13.7 g/dL (12.0-15.0); Lymphocyte # 3.66 X10^3/ul (0.83-4.51); Lymphocyte % 26.9 % (19-41); Mean Corp Hgb Conc 32.1 g/dL (32-36); Mean Corpuscular Hgb 29.4 pg (27.0-32.0); Mean Corpuscular Volume 91.6 fL (81-99); Mean Platelet Vol. 11.2 fl (6.2-12.0); Monocyte# 0.74 X10^3/uL; Monocyte% 5.4 % (0-10); NRBC Flagged by Analyzer 0 % (0-5); Neutrophil # 8.46 X10^3/uL (2.7-7.7); Neutrophil % 62.2 % (47-70); Platelet Count 327 K/mm3 (150-450); RBC Distribution Width CV 12.4 % (11.6-14.6); RBC Distribution Width SD 41.4 fl (35.1-43.9); Red Blood Count 4.66 M/mm3 (4.2-5.4); White Blood Count 13.6 K/mm3 (4.4-11.0)
[2022-06-17 21:13] LABS: Color, Urine Yellow (Yellow); Glucose, Dipstick Normal (Normal); Ketone-Dipstick Negative (Negative); Leukocyte Esterase-Dipstick 25 /ul (Negative); Nitrite-Dipstick Negative (Negative); Occult Blood-Urine Negative /ul (Negative); Protein-Dipstick 15 mg/dl (Negative); Specific Gravity, Urine 1.025 (1.002-1.030); Urine Bilirubin Dipstick Negative (Negative); Urine Clarity Clear (Clear); Urine Urobilinogen Normal (Normal)
[2022-06-17 21:16] LABS: Anion Gap 3 (5-15); BUN 18 mg/dL (7-18); BUN/Creat Ratio 21.5 RATIO (10-20); Chloride 107 mmol/L (98-107); Creatinine, Serum 0.84 mg/dL (0.55-1.02); EST Glomerular Filtration Rate 88 mL/min (>60); Est Glom Filt Rate - Afr Amer 107 mL/min (>60); Estimated Creatinine Clearance 92.93 ml/min; Glucose 100 mg/dL (74-106); Potassium 3.7 mmol/L (3.5-5.1); Sodium Level 136 mmol/L (136-145)
[2022-06-17 21:22] LABS: Bacteria RARE /hpf (None Seen); Internal QC Validated? YES +Cl - CLEAR BKGD; Pregnancy, Urine Negative Negative; Squamous Epithelial Cells - UA 0-5 SEEN /hpf (5-10); White Blood Cells 0-5 SEEN /hpf (0-5)
[2022-06-17 21:51] VITALS: RESP 16
== END 2022-06-17 21:54 | disposition home or self-care (01) ==
PROVIDERS: Nurse Practitioner; Emergency Provider Emergency Medicine; PCP Family Medicine; Visit Provider Emergency Medicine
DX: K52.9 Noninfective gastroenteritis and colitis, unspecified (principal)
CPT/HCPCS: 80048; 81001; 81025; 85025; 96361; 96374; 99283; J7030; A4216; J2405

== ENCOUNTER 2023-09-10 21:39 | Emergency (ER) | payer MEDICAID, SELFPAY ==
[2023-09-10 21:40] VITALS: BP 138/82; PULSE 80; RESP 18; TEMP 36.6; O2SAT 96; BMI 46.5
--- NOTE | 2023-09-10 21:52 | EDS_ITS ---
HPI History of Present Illness Chief Complaint: Laceration Informant: patient Narrative Narrative: [id number] female states she was using a steak knife to pry open the lid of a can of tomato sauce, when she did this the lid edge cut her left thumb, sustained a laceration no other injuries. Tetanus Immunization: 5-10 years [facility] Medical History Seizure Migraine Depression Anxiety Home Medications ?Medication ?Instructions ?Recorded ?Last Taken ?Type hydroxyzine pamoate 25 mg capsule 25 mg PO TID 09/10/23 Unknown History Allergy/AdvReac Type Severity Reaction Status Date / Time dog dander Allergy Other Verified 09/10/23 21:40 grapefruit AdvReac Hives Verified 09/10/23 21:40 lorazepam (From Ativan) AdvReac Other Verified 09/10/23 21:40 Surgical History History of ear surgery Social History household members: family Smoking Status: Never smoker alcohol intake: never substance use type: does not use ROS ROS ED Constitutional Constitutional ED: Denies chills or fever(s) Musculoskeletal Musculoskeletal: Reports extremity pain; Denies neck pain Integumentary Reports wounds; Denies Abrasions or rash Neurologic Neurologic: Denies paresthesias or weakness EXAM Physical Exam Const Vital Signs: 09/10/23 21:40 Temperature 98 F Temperature Source Temporal Pulse Rate 80 Respiratory Rate 18 Blood Pressure 138/82 H Blood Pressure Mean 100 Pulse Ox 96 Oxygen Delivery Method Room Air Positive well nourished and well developed General Appearance ED: well developed and NAD Neck full ROM and supple Back/Spine normal ROM and normal to inspection Extremity full ROM Extremity Narrative: No bony tenderness. Laceration to the pad of the left thumb. Neuro oriented x3, no focal motor deficits and no sensory deficits noted Sensorium / Orientation: alert Psych mental status grossly normal and thought process normal Skin Skin Narrative: 2 cm full-thickness gaping laceration just below the dermis into subcutaneous fat at the volar aspect of the left thumb pad does not involve the IPJ. Rashes: no rashes MDM MDM MDM Narrative Medical decision making narrative: Patient laceration was repaired, see the procedure note. She was agreeable to this versus gluing which I did not recommend and she was asking about. tetanus is up-to-date, she had it around 6 or 7 years ago and this is a low risk tetanus wound so I do not think she needs an emergent update. Given appropriate discharge instructions regarding daily care and suture removal. Procedures Lacerations L thumb: Length: 2 cm Depth: Sub Q Shape: Linear Prep: Sterile Conditions and Chlorhexadine (scrubbed extensively) Laceration repair: Lidocaine (SQ injected), Lidocaine with epi (topical LET), Local (1cc) and Skin sutures Number of Sutures/Fernanda: 3 Suture Information: Ethilon, Simple and 5-0 Discharge Plan Triage Chief Complaint: Laceration ED Provider: Arnulfo Lemon Dx/Rx/DC Orders Clinical Impression: Laceration of left thumb Instructions: ED Laceration, Hand: All Closures Prescriptions: No Action hydroxyzine pamoate 25 mg capsule 25 mg PO TID Primary Care Provider: Arley Dominguez Referrals: Arley Dominguez MD [Primary Care Provider] - 10 Day for suture removal Print Language: Bahraini Disposition Disposition: Home, Self Care
[2023-09-10] MEDS: Lidocaine/Epi/Tetracaine 50 ML 1 APPLIC TOPICAL (22:24)
[2023-09-10] MEDS: Lidocaine 1% (20 ml mdv) 20 ML Vial INFILT (22:28)
[2023-09-10 23:09] VITALS: BP 138/80; PULSE 82; RESP 16; TEMP 36.8; O2SAT 97
== END 2023-09-10 23:14 | disposition home or self-care (01) ==
PROVIDERS: Emergency Provider Emergency Medicine; PCP Family Medicine; Visit Provider Emergency Medicine
DX: S61.012A Laceration without foreign body of left thumb without damage to nail, initial encounter (principal); W26.8XXA Contact with other sharp object(s), not elsewhere classified, initial encounter
CPT/HCPCS: 12001; 99283

== ENCOUNTER 2024-09-06 09:27 | Emergency (ER) | payer MEDICAID, SELFPAY ==
[2024-09-06 09:28] VITALS: BP 143/96; PULSE 90; RESP 20; TEMP 37.3; O2SAT 96; BMI 46.7
--- OUTSIDE RECORDS SUMMARY | 2024-09-06 10:04 | XMS RPT_ITS | CCD ---
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 2 AED's-LEV and LTG. She states LEV has had no effect on her seizures but since starting LTG, her seizures have decreased in frequency. She is here for a diagnostic evaluation. PLAN: 1. Admit for continuous video-EEG monitoring for diagnosis. 2. Hold AED's 3. Seizure Precautions 4. DVT prophylaxis: SCD's and Heparin every 12 hours 5. 2 mg of Ativan for rescue for prolonged or recurrent seizure 6. Monitor labs 7. Consider referral to [facility] for migraine management SIGNATURE: Shabnam Whitmore, MSN, MARKETING TECHNOLOGY COORDINATOR.NURSING TECHN PATIENT NAME: Avril Stallings DATE: May 27, 2018 TIME: 9:43 AM PAGER/CONTACT #: [phone] [facility] STAFF NOTE [facility] STAFF PHYSICIAN NOTE OF PERSONAL INVOLVEMENT IN CARE I have reviewed the history and physical examination obtained and documented by the nurse practitioner and I personally participated in the beard components. I have discussed the case and management of the patient's care. The following comments revise or confirm relevant beard components of the note. IMPRESSION: This is a 22 year old year old admitted with an extensive psychiatric history admitted with a history of staring spells (eyes rolling up, LOC? as well as generalized shaking episodes. Admitted for diagnostic VEEG ? The day's recording was personally reviewed and the results are summarized below. VIDEO-EEG MONITORING DAILY REPORT: Interictal findings: none Ictal findings: 1 episodes captured, patient was not hooked to eeg PLAN veeg seizure precaution stop all aeds The treatment plan was discussed in detail with the patient/patient family members. Time for questions was given and answers were discussed. The patient/patient family members agree [place] [id number] Normal [facility] Hemogram/Diffon 05-27-2018 Abs Immature Grans 0.02 thou/cmm Normal 0.00-0.05 [facility] Comment on above: Performed By: #### C BCD1 #### [place] [address] Abs. Baso 0.05 thou/cmm Normal 0.01-0.08 [facility] Comment on above: Performed By: #### C BCD1 #### [place] [address] Abs. Mobile 0.67 thou/cmm Normal 0.27-0.70 [facility] Comment on above: Performed By: #### C BCD1 #### [facility] [address] [place] [address] Abs. Neut (ANC) 5.90 thou/cmm Normal 1.56-6.13 [facility] Comment on above: Performed By: #### C BCD1 #### [facility] [address] [place] [address] Basophils/100 WBC (Bld) 0.6 % Normal [facility] Comment on above: Performed By: #### C BCD1 #### [facility] [address] [place] [address] Eosinophils #/vol (Bld) 0.29 thou/cmm Normal 0.00-0.31 [facility] Comment on above: Performed By: #### C BCD1 #### [facility] [address] [place] [address] Eosinophils/100 WBC (Bld) 3.2 % Normal [facility] Comment on above: Performed By: #### C BCD1 #### [facility] [address] [place] [address] Erythrocyte distribution width Ratio (RBC) 11.9 % Normal 11.7-14.4 [facility] Comment on above: Performed By: #### C BCD1 #### [facility] [address] [place] [address] Hematocrit Volume Fraction (Bld) 40.6 % Normal 34.1-44.9 [facility] Comment on above: Performed By: #### C BCD1 #### [facility] [address] [place] [address] Hemoglobin mass conc (Bld) 13.3 g/dL Normal 11.2-15.7 [facility] Comment on above: Performed By: #### C BCD1 #### [facility] [address] [place] [address] Immature Grans 0.20 % Normal [facility] Comment on above: Performed By: #### C BCD1 #### [facility] [address] [place] [address] Lymphocytes #/vol (Bld) 2.01 thou/cmm Normal 1.18-3.74 [facility] Comment on above: Performed By: #### C BCD1 #### [facility] [address] [place], [place] [address] Lymphocytes/100 WBC (Bld) 22.5 % Normal [facility] Comment on above: Performed By: #### C BCD1 #### [facility] [address] [place], [place] [address] MCH Entitic mass (RBC) 28.5 pg Normal 25.6-32.2 [facility] Comment on above: Performed By: #### C BCD1 #### [facility] [address] [place], [place] [address] MCHC mass conc (RBC) 32.8 % Normal 31.6-34.[address] [facility] Comment on above: Performed By: #### C BCD1 #### [facility] [address] [place], [place] [address] MCV Entitic volume (RBC) 87.1 fL Normal 79.4-94.8 [facility] Comment on above: Performed By: #### C BCD1 #### [facility] [address] [place], [place] [address] Monocytes/100 WBC (Bld) 7.5 % Normal [facility] Comment on above: Performed By: #### C BCD1 #### [facility] [address] [place], [place] [address] Platelet mean volume Entitic volume (Bld) 11.3 fL Normal 9.4-12.3 [facility] Comment on above: Performed By: #### C BCD1 #### [facility] [address] [place], [place] [address] Platelets #/vol (Bld) 330 thou/cmm Normal 182-369 A [facility] Comment on above: Performed By: #### C BCD1 #### [facility] [address] [place], [place] [address] RBC #/vol (Bld) 4.66 mil/cmm Normal 3.93-5.22 [facility] Comment on above: Performed By: #### C BCD1 #### [facility] [address] [place] [address] RDW SD 38.4 fl Normal 36.4-46.3 [facility] Comment on above: Performed By: #### C BCD1 #### [place] [address] Seg Neutrophil 66.0 % Normal [facility] Comment on above: Performed By: #### C BCD1 #### [place] [address] WBC #/vol (Bld) 8.94 thou/cmm Normal 3.98-10.04 [facility] Comment on above: Performed By: #### C BCD1 #### [place] [address] MDRD GFRon 05-27-2018 GFR/1.73 sq M predicted among non-blacks MDRD vol rate/area (S/P/Bld) mL/min/{1.73_m2} Normal >60mL/min/1. 73m2 [facility] Comment on above: Result Comment: If t he patient is , multiply the result by 1.210. Performed By: #### G FR #### [place] [address] Magnesium Bloodon 05-27-2018 Magnesium mass conc 2.1 mg/dL Normal 1.6-2.6 [facility] Comment on above: Performed By: #### M AG #### [place] [address] NURSING PROGon 05-27-2018 Protein mass conc HNO ID: [id number] Author: Sanjay (Rn) TOOTIE Diamond Service: ? Author Type: Registered Nurse Type: Nursing Progress Note Filed: 05/27/2018 9:39 PM Note Text: Seizure Note Patient Name: Avril Stallings Patient [id number] 04-* Time seizure started: 2130 Length of seizure: N/A If there was an aura then describe:Headache If motor activity was present then describe: upper body jerk lasting one second. Did the seizure evolve to generalized tonic-conic: No If the patient bit their tongue indicate location: N/A If postictal behavior was present describe: no Patient description of event: pt complains of headache Interventions taken: No further intervention at this time, will continue to observe and check with patient. This note was completed by: Sanjay Diamond RN [facility] Protein mass conc HNO ID: [id number] Author: Oriana McmahonRn) TOOTIE Muñoz Service: Nursing Author Type: Registered Nurse Type: Nursing Progress Note Filed: 05/27/2018 5:24 PM Note Text: Seizure Note Patient Name: Avril Stallings Patient Location: [place] [address] 04-* Time seizure started: 1635 Length of seizure: n/a If there was an aura then describe: Physical Changes staring, unresponsive lasted a few seconds If motor activity was present then describe: staring Did the seizure evolve to generalized tonic-conic: No If the patient bit their tongue indicate location: N/A If postictal behavior was present describe: Confusion Patient description of event: Confused, c/o headache before and eyes started to water which she says is common afterward Interventions taken: No further intervention at this time, will continue to observe and check with patient. This note was completed by: Oriana Muñoz RN [facility] Protein mass conc HNO ID: [id number] Author: Oriana McmahonRn) TOOTIE Muñoz Service: Nursing Author Type: Registered Nurse Type: Nursing Progress Note Filed: 05/27/2018 12:05 PM Note Text: Seizure Note Patient Name: Avril Stallings [facility] [address] [facility] Time seizure started: 12:00 Length of seizure: n/a If there was an aura then describe: Physical Changesheadache If motor activity was present then describe: shaking, eyes to the left and open, Did the seizure evolve to generalized tonic-conic: No If the patient bit their tongue indicate location: N/A If postictal behavior was present describe: none Patient description of event: patient felt headache in occipital lobe, started shaking, no memory of what happened. Interventions taken: No further intervention at this time, will continue to observe and check with patient. This note was completed by: Oriana Muñoz RN Normal [facility] Phosphorus Bloodon 9 Phosphate mass conc 2.8 mg/dL Normal 2.5-4.9 [facility] Comment on above: Performed By: #### P HOS #### [facility] [address] [place] [address] Protimeon 05-27-2018 INR Coag RelTime (PPP) 1.02 {INR} Normal 0.90-1.30 [facility] Comment on above: Result Comment: Bertha min K Antagonist (VKA) Therapeutic Range: INR 2 to 3 (Target INR of 2.5) Note: For patients treated with VKA drugs, such as warfarin, the [place] [employer] 2012 Guideline recommends a therapeutic INR range of 2 to 3 (target INR of 2.5). This recommendation includes high-risk patients with antiphospholipid syndrome with previous arterial or venous thromboembolism, current-generation mechanical or bioprosthetic aortic heart valve replacement. VKA Therapeutic Range for some Mechanical Valve Replacement: INR 2.5 to 3.5 (Target INR of 3) Note: Patients with mechanical aortic valve replacement and additional risk factors for thromboembolic events (atrial fibrillation, previous thromboembolism, LV dysfunction, hypercoagulable conditions) or an older generation mechanical AVR (i.e., ball in-Cage) or any mechanical MVR should have a INR therapeutic range of 2.5 to 3.5 target INR of 3). Zenaida GH, et al. Chest 2012; 141:7S-47S Manpreet CABRERA et al. [facility] 2017; 70: 252-289 Performed By: #### P T #### [facility] [address] [place] [address] Prothrombin time (PT) Coag time (PPP) 10.6 s Normal 9.7-13.0 [facility] Comment on above: Performed By: #### P T #### [facility] [address] [place] [address] TSH, 3rd generationon 2018 TSH, 3rd generation 2.240 uIU/mL Normal 0.358-3.740 [facility] Comment on above: Performed By: #### T SH3 #### [place] [address] Urine HCG, Qual.on 9 HCG.beta subunit ( test) Ql (U) Negative Normal Negative [facility] Comment on above: Performed By: #### H CGUR #### [place] [address] Specific Mallie, Ur 1.014 Normal 1.005-1.030 [facility] Comment on above: Performed By: #### H CGUR #### [place] [address] .Urinalysis Microscopic (AO) on 09-24-2017 RBC (U) [#/Vol] None Seen Normal None Seen [facility] ([place]) Comment on above: Performed By: #### U A, PREGU, UAMICAO #### [address] [address] UA Squam Epithelial None Seen Normal None Seen [facility] ([place]) Comment on above: Performed By: #### U A, PREGU, UAMICAO #### [place] [id number] [place], [place] [address] UA WBC None Seen Normal None Seen [facility] ([place]) Comment on above: Performed By: #### U A, PREGU, UAMICAO #### [address] [address] PREGUon 09-24-2017 HCG ( test) Ql (U) Negative Normal [facility] ([place]) Comment on above: Performed By: #### U A, PREGU, UAMICAO #### [place] [address] test (u) int HCG not detected. [facility] ([place]) Comment on above: Performed By: #### U A, PREGU, UAMICAO #### [place] [address] UAon 09-24-2017 Color (U) Yellow Normal [facility] ([place]) Comment on above: Performed By: #### U A, PREGU, UAMICAO #### [place] [address] Glucose (U) [Mass/Vol] Negative Normal Negative [facility] ([place]) Comment on above: Performed By: #### U A, PREGU, UAMICAO #### [place] [address] Ketones Ql (U) Negative Normal Negative [facility] ([place]) Comment on above: Performed By: #### U A, PREGU, UAMICAO #### [address] [address] UA Appear Clear Normal Clear [facility] ([place]) Comment on above: Performed By: #### U A, PREGU, UAMICAO #### [address] [address] UA Blood Negative Normal Negative [facility] ([place]) Comment on above: Performed By: #### U A, PREGU, UAMICAO #### [place] [id number] UA Leuk Est Negative Normal Negative [facility] ([place]) Comment on above: Performed By: #### U A, PREGU, UAMICAO #### [place] [address] UA Nitrite Negative Normal Negative [facility] ([place]) Comment on above: Performed By: #### U A, PREGU, UAMICAO #### [place] [address] UA pH 6.0 Normal [facility] ([place]) Comment on above: Performed By: #### U A, PREGU, UAMICAO #### [place] [address] UA Protein Negative Normal Negative [facility] ([place]) Comment on above: Performed By: #### U A, PREGU, UAMICAO #### [place] [address] UA Spec Grav >=1.030 [facility] ([place]) Comment on above: Performed By: #### U A, PREGU, UAMICAO #### [place] [address] UA Specimen Type Clean Catch Normal [facility] ([place]) Comment on above: Performed By: #### U A, PREGU, UAMICAO #### [place] [address] UA Urobilinogen 0.2 E.U./dL Normal [facility] ([place]) Comment on above: Performed By: #### U A, PREGU, UAMICAO #### [place] [address] Urobilinogen Qn (U) Negative Normal Negative [facility] ([place]) Comment on above: Performed By: #### U A, PREGU, UAMICAO #### [place] [address] CR Chest PA/LATon 09-05-2016 CR Chest PA/LAT Patient Name: AVRIL STALLINGS Diagnostic Radiology Exam Date/Time 09/04/2016 22:35:00 EDT Exam CR Chest PA/LAT Ordering Physician MD AMOS GREGORY M Accession Number [id number] CPT4 Codes 74307 () Reason For Exam chest pain Report Clinical indication: Chest pain Comparison: 04/25/2015 The cardiac silhouette and mediastinal contours are not enlarged. The lungs are clear. No pleural effusions are noted. The osseous structures appear grossly intact. IMPRESSION: NO ACUTE RADIOGRAPHIC ABNORMALITY IS NOTED IN THE CHEST. Report Dictated on Final Dictating Physician: MD NAGY DIANE Signed Date and Time: 09/04/2016 10:54 pm Signed by: MD NAGY DIANE Transcribed Date and Time: 09/04/2016 10:55 Normal [facility] Influenza virus A and B and SARS-CoV-2 (COVID-19) Ag panel - Upper respiratory specim SARS-CoV-2 & FLU Antigen (Rapid) SARS-CoV-2 (COVID 19) [facility] Work Phone: Vital Signs Date Time Vital Sign Value Performing Clinician Faci lity 07-01-2024 10:15-0400 Body mass index (BMI) [Ratio] 42.56 kg/m2 Alice Palacio MARKETING TECHNOLOGY COORDINATOR.NURSING TECHN Work Phone: [facility] 07-01-2024 10:15-0400 Body temperature 99.39 [degF] Alice Palacio MARKETING TECHNOLOGY COORDINATOR.NURSING TECHN Work Phone: [facility] 07-01-2024 10:15-0400 Body weight 116 kg Alice Palacio MARKETING TECHNOLOGY COORDINATOR.NURSING TECHN Work Phone: [facility] 07-01-2024 10:15-0400 Diastolic blood pressure 75 mm[Hg] Alice Palacio MARKETING TECHNOLOGY COORDINATOR.NURSING TECHN Work Phone: [facility] 07-01-2024 10:15-0400 Heart rate 93 /min Alice Palacio MARKETING TECHNOLOGY COORDINATOR.NURSING TECHN Work Phone: [facility] 07-01-2024 10:15-0400 Respiratory rate 20 /min Alice Palacio MARKETING TECHNOLOGY COORDINATOR.NURSING TECHN Work Phone: [facility] 07-01-2024 10:15-0400 SaO2% (BldA) [Mass fraction] 97 % Alice Palacio MARKETING TECHNOLOGY COORDINATOR.NURSING TECHN Work Phone: [facility] 07-01-2024 10:15-0400 Systolic blood pressure 109 mm[Hg] Alice Palacio MARKETING TECHNOLOGY COORDINATOR.NURSING TECHN Work Phone: [facility] 06-24-2024 12:19-0400 Body mass index (BMI) [Ratio] 43.1 kg/m2 Laura Podlogar MARKETING TECHNOLOGY COORDINATOR.NURSING TECHN Work Phone: [facility] 06-24-2024 12:19-0400 Body weight 117.48 kg Laura Podlogar MARKETING TECHNOLOGY COORDINATOR.NURSING TECHN Work Phone: [facility] 06-24-2024 12:19-0400 Diastolic blood pressure 82 mm[Hg] Laura Podlogar MARKETING TECHNOLOGY COORDINATOR.NURSING TECHN Work Phone: [facility] 06-24-2024 12:19-0400 Heart rate 80 /min Laura Podlogar MARKETING TECHNOLOGY COORDINATOR.NURSING TECHN Work Phone: [facility] 06-24-2024 12:19-0400 Respiratory rate 18 /min Laura Podlogar MARKETING TECHNOLOGY COORDINATOR.NURSING TECHN Work Phone: [facility] 06-24-2024 12:19-0400 Systolic blood pressure 126 mm[Hg] Laura Podlogar MARKETING TECHNOLOGY COORDINATOR.NURSING TECHN Work Phone: [facility] 06-20-2024 13:32-0400 Body mass index (BMI) [Ratio] 42.56 kg/m2 Alice Palacio MARKETING TECHNOLOGY COORDINATOR.NURSING TECHN Work Phone: [facility] 06-20-2024 13:32-0400 Body temperature 98.4 [degF] Alice Palacio MARKETING TECHNOLOGY COORDINATOR.NURSING TECHN Work Phone: [facility] 06-20-2024 13:32-0400 Body weight 116 kg Alice Palacio MARKETING TECHNOLOGY COORDINATOR.NURSING TECHN Work Phone: [facility] 06-20-2024 13:32-0400 Diastolic blood pressure 83 mm[Hg] Alice Palacio MARKETING TECHNOLOGY COORDINATOR.NURSING TECHN Work Phone: [facility] 06-20-2024 13:32-0400 Heart rate 75 /min Alice Palacio MARKETING TECHNOLOGY COORDINATOR.NURSING TECHN Work Phone: [facility] 06-20-2024 13:32-0400 Respiratory rate 20 /min Alice Palacio MARKETING TECHNOLOGY COORDINATOR.NURSING TECHN Work Phone: [facility] 06-20-2024 13:32-0400 SaO2% (BldA) [Mass fraction] 97 % Alice Palacio MARKETING TECHNOLOGY COORDINATOR.NURSING TECHN Work Phone: [facility] 06-20-2024 13:32-0400 Systolic blood pressure 134 mm[Hg] Alice Palacio MARKETING TECHNOLOGY COORDINATOR.NURSING TECHN Work Phone: [facility] 07-31-2023 15:08-0400 Body mass index (BMI) [Ratio] 44.1 kg/m2 Laurence Dominguez MD Work Phone: [facility] 07-31-2023 15:08-0400 Body weight 120.2 kg Laurence Dominguez MD Work Phone: [facility] 07-31-2023 15:08-0400 Diastolic blood pressure 82 mm[Hg] Laurence Dominguez MD Work Phone: [facility] 07-31-2023 15:08-0400 Heart rate 84 /min Laurence Dominguez MD Work Phone: [facility] 07-31-2023 15:08-0400 Respiratory rate 16 /min Laurence Dominguez MD Work Phone: [facility] 07-31-2023 15:08-0400 SaO2% (BldA) [Mass fraction] 98 % Laurence Dominguez MD Work Phone: [facility] 07-31-2023 15:08-0400 Systolic blood pressure 116 mm[Hg] Laurence Dominguez MD Work Phone: [facility] 07-04-2023 14:31-0400 Body mass index (BMI) [Ratio] 44.93 kg/m2 Emmy Lees MD Work Phone: [facility] 07-04-2023 14:31-0400 Body weight 122.47 kg Emmy Lees MD Work Phone: [facility] 07-04-2023 14:31-0400 Diastolic blood pressure 86 mm[Hg] Emmy Lees MD Work Phone: [facility] 07-04-2023 14:31-0400 Systolic blood pressure 136 mm[Hg] Emmy Lees MD Work Phone: [facility] 04-23-2023 13:57-0500 Body weight 124.92 kg Laurence Dominguez MD Work Phone: [facility] 04-23-2023 13:57-0500 Diastolic blood pressure 74 mm[Hg] Laurence Dominguez MD Work Phone: [facility] 04-23-2023 13:57-0500 Heart rate 94 /min Laurence Dominguez MD Work Phone: [facility] 04-23-2023 13:57-0500 Respiratory rate 16 /min Laurence Dominguez MD Work Phone: [facility] 04-23-2023 13:57-0500 SaO2% (BldA) [Mass fraction] 99 % Laurence Dominguez MD Work Phone: [facility] 04-23-2023 13:57-0500 Systolic blood pressure 122 mm[Hg] Laurence Dominguez MD Work Phone: [facility] 08-31-2022 18:32-0400 Body temperature 98.2 [degF] Jacqui Athy PA-C Work Phone: [facility] 08-31-2022 18:32-0400 Body weight 112.76 kg Jacqui Athy PA-C Work Phone: [facility] 08-31-2022 18:32-0400 Diastolic blood pressure 90 mm[Hg] Jacqui Athy PA-C Work Phone: [facility] 08-31-2022 18:32-0400 Heart rate 79 /min Jacqui Athy PA-C Work Phone: [facility] 08-31-2022 18:32-0400 Respiratory rate 18 /min Jacqui Henry PA-C Work Phone: [facility] 08-31-2022 18:32-0400 SaO2% (BldA) [Mass fraction] 97 % Jacqui Henry PA-C Work Phone: [facility] 08-31-2022 18:32-0400 Systolic blood pressure 138 mm[Hg] Jacqui Henry PA-C Work Phone: [facility] 06-17-2022 21:51-0400 Respiratory rate 16 /min [facility] 06-17-2022 20:08-0400 Body height 165.1 cm [facility] 06-17-2022 20:08-0400 Body mass index (BMI) [Ratio] 40.6 kg/m2 [facility] 06-17-2022 20:08-0400 Body temperature 96.9 [degF] [facility] 06-17-2022 20:08-0400 Body weight 110.67 kg [facility] 06-17-2022 20:08-0400 Diastolic blood pressure 70 mm[Hg] [facility] 06-17-2022 20:08-0400 Heart rate 79 /min [facility] 06-17-2022 20:08-0400 SaO2% (BldA) [Mass fraction] 98 % [facility] 06-17-2022 20:08-0400 Systolic blood pressure 141 mm[Hg] [facility] 05-31-2022 22:53-0400 Diastolic blood pressure 63 mm[Hg] [facility] 05-31-2022 22:53-0400 Heart rate 57 /min [facility] 05-31-2022 22:53-0400 Respiratory rate 14 /min [facility] 05-31-2022 22:53-0400 SaO2% (BldA) [Mass fraction] 98 % [facility] 05-31-2022 22:53-0400 Systolic blood pressure 124 mm[Hg] [facility] 05-31-2022 21:02-0400 Body height 157.48 cm [facility] 05-31-2022 21:02-0400 Body mass index (BMI) [Ratio] 44.9 kg/m2 [facility] 05-31-2022 21:02-0400 Body temperature 97.9 [degF] [facility] 05-31-2022 21:02-0400 Body weight 111.5 kg [facility] 03-07-2022 13:51-0500 Body weight 115.76 kg Laurence Dominguez MD Work Phone: [facility] 03-07-2022 13:51-0500 Diastolic blood pressure 64 mm[Hg] Laurence Dominguez MD Work Phone: [facility] 03-07-2022 13:51-0500 Heart rate 86 /min Laurence Dominguez MD Work Phone: [facility] 03-07-2022 13:51-0500 Respiratory rate 16 /min Laurence Dominguez MD Work Phone: [facility] 03-07-2022 13:51-0500 SaO2% (BldA) [Mass fraction] 98 % Laurence Dominguez MD Work Phone: [facility] 03-07-2022 13:51-0500 Systolic blood pressure 128 mm[Hg] Laurence Dominguez MD Work Phone: [facility] 02-21-2022 00:27-0500 SaO2% (BldA) [Mass fraction] 99 % [facility] 02-20-2022 22:20-0500 Body height 162.56 cm [facility] Work Phone: 02-20-2022 22:20-0500 Body mass index (BMI) [Ratio] 42.9 kg/m2 [facility] 02-20-2022 22:20-0500 Body temperature 97.8 [degF] [facility] 02-20-2022 22:20-0500 Body weight 113.39 kg [facility] 02-20-2022 22:20-0500 Diastolic blood pressure 86 mm[Hg] [facility] 02-20-2022 22:20-0500 Heart rate 84 /min [facility] 02-20-2022 22:20-0500 Respiratory rate 16 /min [facility] 02-20-2022 22:20-0500 Systolic blood pressure 141 mm[Hg] [facility] 09-22-2021 22:14-0400 Body height 165.1 cm [facility] Work Phone: 09-22-2021 22:14-0400 Body mass index (BMI) [Ratio] 45.4 kg/m2 [facility] Work Phone: 09-22-2021 22:14-0400 Body temperature 97.2 [degF] [facility] Work Phone: 09-22-2021 22:14-0400 Body weight 123.83 kg [facility] Work Phone: 09-22-2021 22:14-0400 Diastolic blood pressure 79 mm[Hg] [facility] Work Phone: 09-22-2021 22:14-0400 Heart rate 92 /min [facility] Work Phone: 09-22-2021 22:14-0400 Respiratory rate 16 /min [facility] Work Phone: 09-22-2021 22:14-0400 SaO2% (BldA) [Mass fraction] 98 % [facility] Work Phone: 09-22-2021 22:14-0400 Systolic blood pressure 139 mm[Hg] [facility] Work Phone: 08-01-2021 09:44-0400 Body weight 126.55 kg Laurence Dominguez MD Work Phone: [facility] 08-01-2021 09:44-0400 Diastolic blood pressure 78 mm[Hg] Laurence Dominguez MD Work Phone: [facility] 08-01-2021 09:44-0400 Heart rate 77 /min Laurence Dominguez MD Work Phone: [facility] 08-01-2021 09:44-0400 Respiratory rate 18 /min Laurence Dominguez MD Work Phone: [facility] 08-01-2021 09:44-0400 SaO2% (BldA) [Mass fraction] 97 % Laurence Dominguez MD Work Phone: [facility] 08-01-2021 09:44-0400 Systolic blood pressure 114 mm[Hg] Laurence Dominguez MD Work Phone: [facility] 07-27-2021 23:33-0400 Diastolic blood pressure 80 mm[Hg] [facility] Work Phone: 07-27-2021 23:33-0400 Heart rate 81 /min [facility] Work Phone: 07-27-2021 23:33-0400 Respiratory rate 16 /min [facility] Work Phone: 07-27-2021 23:33-0400 SaO2% (BldA) [Mass fraction] 97 % [facility] Work Phone: 07-27-2021 23:33-0400 Systolic blood pressure 132 mm[Hg] [facility] Work Phone: 07-27-2021 22:19-0400 Body height 160.02 cm [facility] Work Phone: 07-27-2021 22:19-0400 Body mass index (BMI) [Ratio] 48.6 kg/m2 [facility] Work Phone: 07-27-2021 22:19-0400 Body temperature 97.8 [degF] [facility] Work Phone: 07-27-2021 22:19-0400 Body weight 124.73 kg [facility] Work Phone: 07-27-2021 14:26-0400 Body weight 124.29 kg Laurence Dominguez MD Work Phone: [facility] 07-27-2021 14:26-0400 Diastolic blood pressure 88 mm[Hg] Laurence Dominguez MD Work Phone: [facility] 07-27-2021 14:26-0400 Heart rate 80 /min Laurence Dominguez MD Work Phone: [facility] 07-27-2021 14:26-0400 Respiratory rate 12 /min Laurence oDminguez MD Work Phone: [facility] 07-27-2021 14:26-0400 Systolic blood pressure 126 mm[Hg] Laurence Dominguez MD Work Phone: [facility] 06-23-2021 09:38-0400 Respiratory rate 16 /min [facility] Work Phone: 06-23-2021 07:28-0400 Body mass index (BMI) [Ratio] 47.8 kg/m2 [facility] Work Phone: 06-23-2021 07:28-0400 Body temperature 98.2 [degF] [facility] Work Phone: 06-23-2021 07:28-0400 Body weight 122.46 kg [facility] Work Phone: 06-23-2021 07:28-0400 Diastolic blood pressure 70 mm[Hg] [facility] Work Phone: 06-23-2021 07:28-0400 Heart rate 83 /min [facility] Work Phone: 06-23-2021 07:28-0400 SaO2% (BldA) [Mass fraction]

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
[2024-09-06] MEDS: HYDROcodone Bitartrate/Apap 5/325 Tablet PO (10:26)
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
[2024-09-06 11:28] VITALS: BP 179/113; PULSE 74; RESP 16; O2SAT 99
[2024-09-06 12:05] VITALS: BP 150/78; PULSE 73; RESP 18; TEMP 37; O2SAT 98
== END 2024-09-06 12:08 | disposition home or self-care (01) ==
PROVIDERS: Emergency Provider Emergency Medicine; PCP Family Medicine; Visit Provider Emergency Medicine
DX: S06.0XAA Concussion with loss of consciousness status unknown, initial encounter (principal); G40.89 Other seizures; S16.1XXA Strain of muscle, fascia and tendon at neck level, initial encounter; S20.219A Contusion of unspecified front wall of thorax, initial encounter; V43.53XA Car driver injured in collision with pick-up truck in traffic accident, initial encounter; F41.9 Anxiety disorder, unspecified; F32.A Depression, unspecified; Z79.899 Other long term (current) drug therapy
CPT/HCPCS: 70450; 71046; 72125; 99284